=== PATIENT | female | born 2000 | race Caucasian/White ===

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

== ENCOUNTER 2022-10-26 10:32 | Emergency (ER) | payer MEDICAID, SELFPAY ==
[2022-10-26 10:48] VITALS: BP 122/76; PULSE 78; O2SAT 100
[2022-10-26 10:51] VITALS: BP 131/75; PULSE 77; RESP 20; TEMP 36.8; O2SAT 100; BMI 23.8
--- NOTE | 2022-10-26 10:55 | ED.CHESTPAIN ---
HPI - Chest Pain General Chief Complaint: Chest Pain Stated Complaint: VOMITING W/CHES/BACK PAIN PER EMS Time Seen by Provider: 10/26/22 11:58 Source: patient Mode of arrival: ambulatory Limitations: no limitations History of Present Illness HPI narrative: 22 yo female presents to the ER for evaluation of epigastric pain that radiates up into the chest that started this morning. She developed nausea and vomited once which improved her pain. She states she had wings, pizza, burgers last night for dinner. She denies history of similar pains. No RUQ pain, fever, chills, diarrhea. No urinary symptoms. No cough, SOB. MD complaint: chest pain and other (epigastric pain) Onset (ago): hour(s) Timing of current episode: other (much improved) Prior episodes: No Pain location: epigastric Severity: mild Quality: burning Relieving factors: other (vomiting) Exacerbating factors: nothing Associated symptoms: nausea and vomiting Treatment prior to arrival: none Risk Factors Coronary artery disease risk factors: none Thoracic aortic dissection risk factors: none Related Data Previous Rx's Medication Instructions Recorded levofloxacin 500 mg tablet 500 mg PO DAILY #5 tabs 07/07/20 oxycodone 5 mg tablet 5 mg PO Q8H PRN pain #5 tabs 07/07/20 tamsulosin 0.4 mg capsule (Flomax) 0.4 mg PO DAILY #14 caps 07/07/20 amoxicillin 875 mg-potassium 1 tab PO Q12H 7 days #14 tabs 04/06/21 clavulanate 125 mg tablet (Augmentin) ondansetron 4 mg disintegrating 4 mg PO Q8H PRN nausea and 09/04/21 tablet vomiting 5 days #20 tabs ondansetron 4 mg disintegrating 4 mg PO Q8H PRN nausea and 10/26/22 tablet vomiting #7 tabs pantoprazole 40 mg tablet,delayed 40 mg PO DAILY #14 tabs 10/26/22 release (Protonix) Allergies Allergy/AdvReac Type Severity Reaction Status Date / Time No Known Allergies Allergy Verified 04/06/21 18:39 [No Known Allergies*] Review of Systems Review of Systems: Yes all other systems are reviewed and are negative PMFSH Past Medical History Medical History No known health problems Social History Social History Advance Directives: No Advance Directives Information Provided: No Physical Exam Vital Signs: Vital Signs: Last Vital Signs Temp 98.2 F 10/26/22 10:51 Pulse 77 10/26/22 10:51 Resp 20 10/26/22 10:51 BP 131/75 10/26/22 10:51 Pulse Ox 100 10/26/22 10:51 O2 Del Method 10/26/22 10:51 BMI result Body Mass Index 23.8 Appearance: Alert. Oriented X3. No acute distress. HEENT: normal external inspection Neck: Normal inspection. CVS: Normal heart rate and rhythm. Respiratory: No respiratory distress. Breath sounds normal. Abdomen: Soft and nontender. +BS x4 Skin: Skin warm and dry. Normal skin color. Normal skin turgor. No rashes. Extremities: Normal inspection x4 Neuro: Oriented X 3. Grossly normal, nonfocal Course Course Course Narrative: 22 yo female presents to the ER with epigastric pain radiating up into her chest that started when she woke up this morning. Vomited x1. Slight pain persists. Admits to eating wings, cheese fries, and other greasy things. Appears well in triage. VSS. Will check basic labs and lipase, low suspicion for pancreatitis. Will hold off on imaging. Stable to go back to the waiting room. Reevaluation(s) Reevaluation #1: Labs showing mildly elevated LFTS, normal bilirubin and alk phos. Most like due to vomiting, doubt biliary etiology. Lipase is normal. She is feeling better. Sxs most likely GERD vs gastritis. We discussed importance of diet modifications. Will start PPI and PRN zofran. Encouraged GI f/u if no improvement with stated measures. Stable for d/c home. Medical Decision Making Medical Decision Making MDM Narrative: 22-year-old female presents to the ER for evaluation of epigastric burning pain that radiates into her chest. Pain started after eating greasy foods last night. She vomited once with improvement in the pain. There is no radiation of the pain. She has a nontender right upper quadrant. Doubt acute cholecystitis or pancreatitis. Labs are reassuring. She is feeling better without any intervention. Comfortable discharge home with dietary modifications, ppi, GI follow-up p.r.n.. Patient agrees with plan. Stable for DC Differential Diagnosis Differential Diagnoses: The differential diagnosis associated with the presentation includes GERD, gastritis, PUD, gastroenteritis, less likely acute cholecystitis, pancreatitis, ACS or PE Lab Data MDM Lab Attestation statement: I reviewed the patient's lab results. Mild transaminitis, no major metabolic derangement. 10/26/22 11:19 10/26/22 11:19 Labs: Lab Results 10/26/22 10/26/22 Range/Units 11:19 11:19 WBC 10.2 (4.8-10.8) X10*3/uL RBC 4.53 (4.20-5.50) X10*6/uL Hgb 12.6 (12.0-16.0) g/dl Hct 37.9 (37.0-47.0) % MCV 83.7 (80.0-98.0) fL MCH 27.8 (27.0-33.0) pg MCHC 33.2 (31.0-35.0) g/dl RDW 12.9 (11.0-16.0) % Plt Count 353 (160-400) X10*3/uL MPV 9.7 (9.4-12.3) fL Immature Gran % (Auto) 0.3 (0.0-0.4) % Neut % (Auto) 75.9 H (45-73) % Lymph % (Auto) 16.7 L (20-40) % [place] % (Auto) 5.6 (2-11) % Eos % (Auto) 1.0 (0-4) % Baso % (Auto) 0.5 (0-2) % Lymph # (Auto) 1.7 (1.2-4.9) X10*3/uL [place] # (Auto) 0.6 (0.1-1.2) X10*3/uL Eos # (Auto) 0.1 (0.0-0.4) X10*3/uL Baso # (Auto) 0.1 (0.0-0.2) X10*3/uL Abs Immat Gran (auto) 0.03 (0.00-0.03) X10*3/uL Absolute Neuts (auto) 7.7 (2.0-8.3) x10*3/uL Absolute Nucleated RBC 0.000 (0.0-0.012) X10*3/uL Nucleated RBC % (auto) 0.0 (0.0-0.2) /100WBC Sodium 144 (135-145) mmol/L Potassium 3.8 (3.3-5.1) mmol/L Chloride 111 H (96-108) mmol/L Carbon Dioxide 25 (22-29) mmol/L Anion Gap 12 (12-20) BUN 10 (9-16) mg/dL Creatinine 0.75 (0.5-1.4) mg/dL Estim Creat Clear Calc 116.3 Estimated GFR > 60 Random Glucose 111 (60-115) mg/dL Calcium 9.2 (8.4-10.2) mg/dL Magnesium 2.0 (1.6-2.6) mg/dL Total Bilirubin 0.7 (0.0-1.0) mg/dL Direct Bilirubin 0.2 (0.0-0.5) mg/dL AST 67 H (5-31) U/L ALT 39 H (0-31) U/L Alkaline Phosphatase 80 (39-117) U/L Total Protein 6.8 (6.5-8.0) g/dL Albumin 4.2 (3.5-5.0) g/dL Lipase 29 (8-78) U/L External Record Review External record reviewed: Outpatient record and Prior outpatient labs Prescription Management I considered prescription management with: Other (Antiemetic and PPI) Critical Care Time Critical Care Time Critical Care Time: No Discharge Plan Discharge Clinical Impression: Gastritis Patient Disposition: Home, Self-Care Instructions: Gastritis (ED), Diet for Stomach Ulcers and Gastritis (ED) Additional Instructions: Your lab workup today was unremarkable. Your pain is most likely due to gastritis which is and irritation and inflammation of your stomach lining. Start taking the prescribed medication as directed for this. Stick to a bland diet. Avoid foods high in acid, avoid alcohol and NSAID medications like Aleve, Motrin, Advil or ibuprofen. Follow up with your doctor Follow up with GI doctor if you symptoms persist despite dietary modifications and medication. If you develop new or worsening symptoms call 911 or come back to the ER for further evaluation. Prescriptions: New pantoprazole [Protonix] 40 mg tablet,delayed release (DR/EC) 40 mg PO DAILY Qty: 14 0RF ondansetron 4 mg tablet,disintegrating 4 mg PO Q8H PRN (Reason: nausea and vomiting) Qty: 7 0RF No Action tamsulosin [Flomax] 0.4 mg capsule 0.4 mg PO DAILY Qty: 14 0RF Rx Instructions: take 1 tablet daily for 14 days. oxycodone 5 mg tablet 5 mg PO Q8H PRN (Reason: pain) Qty: 5 0RF levofloxacin 500 mg tablet 500 mg PO DAILY Qty: 5 0RF amoxicillin-pot clavulanate [Augmentin] 875-125 mg tablet 1 tab PO Q12H 7 Days Qty: 14 0RF ondansetron 4 mg tablet,disintegrating 4 mg PO Q8H PRN (Reason: nausea and vomiting) 5 Days Qty: 20 0RF Referrals: [facility] – [place] [facility] [Provider Group]
[2022-10-26 11:25] LABS: MANUAL DIFF FLAG NO
[2022-10-26 11:30] LABS: Basophils Absolute Auto 0.1 X10*3/uL (0.0-0.2); Basophils Percent Auto 0.5 % (0-2); Eosinophils Absolute Auto 0.1 X10*3/uL (0.0-0.4); Hematocrit 37.9 % (37.0-47.0); Hemoglobin 12.6 g/dl (12.0-16.0); Imm Gran Abs Auto 0.03 X10*3/uL (0.00-0.03); Imm Gran Pct Auto 0.3 % (0.0-0.4); Lymphocytes Absolute Auto 1.7 X10*3/uL (1.2-4.9); Lymphocytes Percent Auto 16.7 % (20-40); Mean Corpuscular HGB Conc 33.2 g/dl (31.0-35.0); Mean Corpuscular Hemoglobin 27.8 pg (27.0-33.0); Mean Corpuscular Volume 83.7 fL (80.0-98.0); Mean Platelet Volume 9.7 fL (9.4-12.3); Monocytes Absolute Auto 0.6 X10*3/uL (0.1-1.2); Monocytes Percent Auto 5.6 % (2-11); Neutrophils Absolute Auto 7.7 x10*3/uL (2.0-8.3); Neutrophils Percent Auto 75.9 % (45-73); Platelet Count 353 X10*3/uL (160-400); Red Blood Count 4.53 X10*6/uL (4.20-5.50); Red Cell Distribution Width 12.9 % (11.0-16.0); White Blood Count 10.2 X10*3/uL (4.8-10.8)
[2022-10-26 11:47] LABS: Alanine Aminotransferase 39 U/L (0-31); Albumin Level 4.2 g/dL (3.5-5.0); Alkaline Phosphatase 80 U/L (39-117); Anion Gap 12 (12-20); Aspartate Amino Transferase 67 U/L (5-31); Bilirubin Total 0.7 mg/dL (0.0-1.0); Blood Urea Nitrogen 10 mg/dL (9-16); Calcium 9.2 mg/dL (8.4-10.2); Carbon Dioxide 25 mmol/L (22-29); Chloride 111 mmol/L (96-108); Creatinine Clr Calc Pharmacy 116.3; Estimated Glomerular Filt Rate > 60; Glucose Random 111 mg/dL (60-115); Lipase 29 U/L (8-78); Potassium 3.8 mmol/L (3.3-5.1); Sodium 144 mmol/L (135-145); Total Protein 6.8 g/dL (6.5-8.0)
[2022-10-26 11:50] LABS: Bilirubin Direct 0.2 mg/dL (0.0-0.5)
== END 2022-10-26 12:07 | disposition home or self-care (01) ==
LOC: HO.ED 12:03
PROVIDERS: Physician Assistant; Emergency Provider Emergency Medicine
DX: K29.70 Gastritis, unspecified, without bleeding (principal); R10.13 Epigastric pain
CPT/HCPCS: 36415; 80048; 80076; 83690; 83735; 85025; 99282; 99283

== ENCOUNTER 2024-06-19 14:23 | Emergency (ER) | payer MEDICAID, SELFPAY ==
--- NOTE | ~2024-06-19 | US_ITS ---
EXAMINATION: US ABDOMEN LIMITED CLINICAL INFORMATION: Right upper quadrant pain. Nausea. COMPARISON: Abdominal ultrasound July 07, 2020 TECHNIQUE: Real-time imaging of the right upper quadrant abdominal viscera. FINDINGS: PANCREAS: Limited visualization. LIVER: The liver is normal in size. The liver contour is normal. Parenchymal echogenicity is normal. No focal hepatic lesion. There is no intrahepatic biliary duct dilatation seen. GALLBLADDER: The gallbladder is distended with multiple shadowing gallstones. No gallbladder wall thickening or pericholecystic fluid. Negative sonographic Adler sign. COMMON BILE DUCT: Normal in caliber measuring 0.2 cm in diameter. RIGHT KIDNEY: No hydronephrosis. No renal calculi. Likely mid pole junctional parenchymal defect. The kidney measures 10.2 cm in maximum dimension. FREE FLUID: None. US/US abdomen limited IMPRESSION: Cholelithiasis without sonographic evidence of acute cholecystitis. Electronically signed by: Víctor Hauser MD 06/19/2024 04:59 PM EDT
[2024-06-19 14:28] VITALS: BP 113/65; PULSE 65; O2SAT 100
--- NOTE | 2024-06-19 14:47 | ED_ITS ---
HPI - Abdominal Pain General Chief Complaint: Abdominal Pain Stated Complaint: ABDOMINAL PAIN PER EMS Time Seen by Provider: 06/19/24 18:51 Source: patient, RN notes reviewed and old records reviewed Mode of arrival: ambulatory Limitations: no limitations History of Present Illness ED Provider: Ruben RAMOS narrative: 24-year-old female presents for evaluation of right upper abdominal pain. Patient reports that her pain started a few hours ago after eating [employer] She reports having had similar pain in August this past year but that eventually resolved with some medications She denies any history abdominal surgeries She reports that she has never had any imaging of her abdomen At the time of my evaluation she reports her pain has completely resolved, she has no further nausea or vomiting. She denies any fevers, chills pain Denies any difficulty urinating. Denies any vaginal bleeding or discharge Related Data Previous Rx's ?Medication ?Instructions ?Recorded levofloxacin 500 mg tablet 500 mg PO DAILY #5 tabs 07/07/20 oxycodone 5 mg tablet 5 mg PO Q8H PRN pain #5 tabs 07/07/20 tamsulosin 0.4 mg capsule (Flomax) 0.4 mg PO DAILY #14 caps 07/07/20 amoxicillin 875 mg-potassium 1 tab PO Q12H 7 days #14 tabs 04/06/21 clavulanate 125 mg tablet (Augmentin) ondansetron 4 mg disintegrating 4 mg PO Q8H PRN nausea and 09/04/21 tablet vomiting 5 days #20 tabs ondansetron 4 mg disintegrating 4 mg PO Q8H PRN nausea and 10/26/22 tablet vomiting #7 tabs pantoprazole 40 mg tablet,delayed 40 mg PO DAILY #14 tabs 10/26/22 release (Protonix) Allergies Allergy/AdvReac Type Severity Reaction Status Date / Time No Known Allergies Allergy Verified 06/19/24 14:50 [No Known Allergies*] Review of Systems Constitutional: Denies body ache(s), Denies chills and Denies fever(s) Eyes: Denies blurry vision Denies dysphagia, Denies vertigo and Denies dizziness Cardiovascular: Denies chest pain Respiratory: Denies cough Gastrointestinal: Reports abdominal pain, Denies dysphagia, Reports nausea and Reports vomiting Musculoskeletal: Denies back pain Skin/Breast: Denies rash Denies vertigo and Denies dizziness [facility] Past Medical History Medical History No known health problems Social History Social History Advance Directives: No Advance Directives Information Provided: No Do you have a plan to hurt others: No Plan Physical Exam ED Vital Signs: Vital Signs - 24 hr 06/19/24 14:48 06/19/24 19:07 06/19/24 19:19 Temperature 98.0 F 98.4 F 98.4 F Pulse Rate 58 67 67 Respiratory Rate 16 16 16 Blood Pressure 92/48 L 115/69 115/69 Pulse Oximetry 100 97 97 Oxygen Delivery Method Room Air Room Air Room Air BMI result Body Mass Index 16.9 Const General: healthy appearing, comfortable, no acute distress, alert and awake Nutritional Appearance: well nourished Orientation/consciousness: patient oriented x3 HENMT Head: Yes normocephalic and Yes atraumatic Eyes Eyelids: Yes eyelids normal Conjunctivae: conjunctivae normal Sclerae: sclerae normal Corneas: corneas normal Pupils: Equal, round and reactive pupils present EOM: EOMs intact bilaterally Neck Neck: Yes full ROM Resp Effort & Inspection: normal respiratory effort, able to speak in complete sentences and not labored Cardio Rate: regular rate Rhythm: regular rhythm GI Inspection: No distended Palpation (GI): Soft to palpation, not firm, nontender, no guarding and not rigid Skin General skin exam: elasticity normal Neuro General: patient oriented x3 Cranial nerves: Yes Equal, round and reactive pupils present and Yes Bilaterally intact EOM present Cognition (Neuro): normal cognition Extrem Other: Moving all extremities well without any obvious deformities Course Course Course Narrative: This is a Rapid Medical Exam performed in triage by Paola Villarreal PA-C. Full HPI, ROS and PE to be performed by primary ED provider. 24-year-old female with a past medical history of gastritis presenting to the ED c/o right sided abdominal pain & nausea since August 2022. Pain worse when she eats or drinks. denies fever, vomiting, diarrhea PE: Soft with RUQ tenderness, no rebound or guarding, no CVAT Plan: labs, UA Medical Decision Making Medical Decision Making MDM Narrative: 24-year-old female presents for evaluation of right upper abdominal pain. She is currently asymptomatic, her pain was after eating. Biliary disease high in the differential, she has no leukocytosis or significant anemia compared to her baseline. Chemistries are significant for a mild elevation of AST and ALT. Her total bilirubin is within normal limits at 1.0. Ultrasound of the right upper quadrant shows cholelithiasis without evidence of acute cholecystitis. The patient is currently asymptomatic. I discussed dietary change with the patient and she will be referred to outpatient surgery. Differential Diagnosis Differential Diagnoses: The differential diagnosis associated with the presentation includes Cholelithiasis Acute cholecystitis UTI Obstructive uropathy Acute appendicitis less likely given upper abdominal pain Lab Data MDM Lab Attestation statement: I reviewed the patient's lab results. 06/19/24 16:16 06/19/24 16:16 Labs: Lab Results 06/19/24 06/19/24 Range/Units 15:56 16:16 WBC 10.8 (4.8-10.8) X10*3/uL RBC 4.13 L (4.20-5.50) X10*6/uL Hgb 11.9 L (12.0-16.0) g/dl Hct 35.2 L (37.0-47.0) % MCV 85.2 (80.0-98.0) fL MCH 28.8 (27.0-33.0) pg MCHC 33.8 (31.0-35.0) g/dl RDW 13.2 (11.0-16.0) % Plt Count 274 (160-400) X10*3/uL MPV 9.5 (9.4-12.3) fL Immature Gran % (Auto) 0.5 H (0.0-0.4) % Neut % (Auto) 79.1 H (45-73) % Lymph % (Auto) 12.8 L (20-40) % Stokes % (Auto) 7.0 (2-11) % Eos % (Auto) 0.3 (0-4) % Baso % (Auto) 0.3 (0-2) % Lymph # (Auto) 1.4 (1.2-4.9) X10*3/uL Stokes # (Auto) 0.8 (0.1-1.2) X10*3/uL Eos # (Auto) 0.0 (0.0-0.4) X10*3/uL Baso # (Auto) 0.0 (0.0-0.2) X10*3/uL Abs Immat Gran (auto) 0.05 H (0.00-0.03) X10*3/uL Absolute Neuts (auto) 8.6 H (2.0-8.3) x10*3/uL Absolute Nucleated RBC 0.000 (0.0-0.012) X10*3/uL Nucleated RBC % (auto) 0.0 (0.0-0.2) /100WBC Sodium 141 (135-145) mmol/L Potassium 3.5 (3.3-5.1) mmol/L Chloride 108 (96-108) mmol/L Carbon Dioxide 26 (22-29) mmol/L Anion Gap 11 L (12-20) BUN 10 (9-16) mg/dL Creatinine 0.74 (0.5-1.4) mg/dL Estim Creat Clear Calc 92.0 Estimated GFR > 60 Random Glucose 104 (60-115) mg/dL Calcium 9.3 (8.4-10.2) mg/dL Magnesium 2.1 (1.6-2.6) mg/dL Total Bilirubin 1.0 (0.0-1.0) mg/dL Direct Bilirubin 0.5 (0.0-0.5) mg/dL AST 218 H (5-31) U/L ALT 109 H (0-31) U/L Alkaline Phosphatase 66 (39-117) U/L Total Protein 7.2 (6.5-8.0) g/dL Albumin 4.4 (3.5-5.0) g/dL Lipase 18 (8-78) U/L Urine Color Yellow Urine Appearance Turbid Urine pH 8.0 (5.0-9.0) Ur Specific [place] 1.025 (1.005-1.025) Urine Protein Negative (Neg-Trace) mg/dL Urine Glucose (UA) Negative (Negative) mg/dL Urine Ketones Negative (Negative) mg/dL Urine Blood Negative (Negative) Urine Nitrite Negative (Negative) Ur Leukocyte Esterase Negative (Negative) Urine Test NEGATIVE (NEGATIVE) Independent Interpretation I performed an independent interpretation of an: Ultrasound Interpretation: FINDINGS: PANCREAS: Limited visualization. LIVER: The liver is normal in size. The liver contour is normal. Parenchymal echogenicity is normal. No focal hepatic lesion. There is no intrahepatic biliary duct dilatation seen. GALLBLADDER: The gallbladder is distended with multiple shadowing gallstones. No gallbladder wall thickening or pericholecystic fluid. Negative sonographic Adler sign. COMMON BILE DUCT: Normal in caliber measuring 0.2 cm in diameter. RIGHT KIDNEY: No hydronephrosis. No renal calculi. Likely mid pole junctional parenchymal defect. The kidney measures 10.2 cm in maximum dimension. FREE FLUID: None. US/US abdomen limited IMPRESSION: Cholelithiasis without sonographic evidence of acute cholecystitis. Electronically signed by: Víctor Hauser MD 06/19/2024 04:59 PM EDT RP Discharge Plan Discharge Clinical Impression: Cholelithiasis Patient Disposition: Home, Self-Care Instructions: Gallstones (ED) Additional Instructions: Your ultrasound did show gallstones. I recommend avoiding past food, fried food, greasy foods as this will likely exacerbate your pain Follow-up with general surgery as an outpatient, you may call tomorrow to schedule an appointment. You may return for new or worsening symptoms, especially develop a fever, worsening abdominal pain that does not resolve or if you are nauseous and unable to tolerate oral intake Prescriptions: No Action tamsulosin [Flomax] 0.4 mg capsule 0.4 mg PO DAILY Qty: 14 0RF Rx Instructions: take 1 tablet daily for 14 days. oxycodone 5 mg tablet 5 mg PO Q8H PRN (Reason: pain) Qty: 5 0RF levofloxacin 500 mg tablet 500 mg PO DAILY Qty: 5 0RF amoxicillin-pot clavulanate [Augmentin] 875-125 mg tablet 1 tab PO Q12H 7 Days Qty: 14 0RF pantoprazole [Protonix] 40 mg tablet,delayed release (DR/EC) 40 mg PO DAILY Qty: 14 0RF ondansetron 4 mg tablet,disintegrating 4 mg PO Q8H PRN (Reason: nausea and vomiting) Qty: 7 0RF ondansetron 4 mg tablet,disintegrating 4 mg PO Q8H PRN (Reason: nausea and vomiting) 5 Days Qty: 20 0RF Referrals: Bunny Cobb MD [Physician] - (cholelithiasis) Interventions: ED Discharge Assessment Last Done: 06/19/24 19:19 Discharge Date/Time: 06/19/24 19:24 Print Language: Amharic
[2024-06-19 14:48] VITALS: BP 92/48; PULSE 58; RESP 16; TEMP 36.7; O2SAT 100; BMI 16.9
[2024-06-19 16:11] LABS: Appearance Urine Turbid; Color Urine Yellow; Glucose Urine UA Negative (Negative); Leukocyte Esterase Urine Negative (Negative); Nitrite Urine Negative (Negative); Specific Gravity - Urine 1.025 (1.005-1.025); Urine Blood Negative (Negative); Urine Ketones Negative (Negative); Urine Protein Negative (Neg-Trace)
[2024-06-19 16:14] LABS: UPreg QC Valid YES; Urine Pregnancy NEGATIVE (NEGATIVE)
[2024-06-19 16:19] LABS: MANUAL DIFF FLAG NO
[2024-06-19 16:20] LABS: Basophils Percent Auto 0.3 % (0-2); Eosinophils Percent Auto 0.3 % (0-4); Hematocrit 35.2 % (37.0-47.0); Hemoglobin 11.9 g/dl (12.0-16.0); Imm Gran Abs Auto 0.05 X10*3/uL (0.00-0.03); Imm Gran Pct Auto 0.5 % (0.0-0.4); Lymphocytes Absolute Auto 1.4 X10*3/uL (1.2-4.9); Lymphocytes Percent Auto 12.8 % (20-40); Mean Corpuscular HGB Conc 33.8 g/dl (31.0-35.0); Mean Corpuscular Hemoglobin 28.8 pg (27.0-33.0); Mean Corpuscular Volume 85.2 fL (80.0-98.0); Mean Platelet Volume 9.5 fL (9.4-12.3); Monocytes Absolute Auto 0.8 X10*3/uL (0.1-1.2); Neutrophils Absolute Auto 8.6 x10*3/uL (2.0-8.3); Neutrophils Percent Auto 79.1 % (45-73); Platelet Count 274 X10*3/uL (160-400); Red Blood Count 4.13 X10*6/uL (4.20-5.50); Red Cell Distribution Width 13.2 % (11.0-16.0); White Blood Count 10.8 X10*3/uL (4.8-10.8)
[2024-06-19 16:35] LABS: Alanine Aminotransferase 109 U/L (0-31); Albumin Level 4.4 g/dL (3.5-5.0); Alkaline Phosphatase 66 U/L (39-117); Anion Gap 11 (12-20); Aspartate Amino Transferase 218 U/L (5-31); Bilirubin Direct 0.5 mg/dL (0.0-0.5); Blood Urea Nitrogen 10 mg/dL (9-16); Calcium 9.3 mg/dL (8.4-10.2); Carbon Dioxide 26 mmol/L (22-29); Chloride 108 mmol/L (96-108); Estimated Glomerular Filt Rate > 60; Glucose Random 104 mg/dL (60-115); Lipase 18 U/L (8-78); Magnesium 2.1 mg/dL (1.6-2.6); Potassium 3.5 mmol/L (3.3-5.1); Sodium 141 mmol/L (135-145); Total Protein 7.2 g/dL (6.5-8.0)
--- NOTE | 2024-06-19 18:55 | PC.NURSE ---
pt from lobby, assume care of pt at this time
[2024-06-19 19:07] VITALS: BP 115/69; PULSE 67; RESP 16; TEMP 36.9; O2SAT 97
[2024-06-19 19:19] VITALS: BP 115/69; PULSE 67; RESP 16; TEMP 36.9; O2SAT 97
--- OUTSIDE RECORDS SUMMARY | 2024-06-19 19:20 | XMS_ITS | Continuity of Care Document ---
Author Organization [facility] Address Unknown Care Team Providers Care Tipple Worker Name Role Phone Ellie HOLLAND, Leydi Miller Primary Care Physician [place] [facility] [place] [facility] Allergies, Adverse Reactions, Alerts No Known Allergies Immunizations Given and Recorded Vaccine Date Status Refusal Reason SARS-CoV-2 (COVID-19) mRNA BNT-162b2 vac 05/05/21 Recorded SARS-CoV-2 (COVID-19) mRNA BNT-162b2 vac 01/28/21 Recorded Medications aspirin 81 mg oral delayed release tablet 162 mg, 2, tablet, By Mouth, Daily, # 90 tablet, Refills 2, Tot. Refills 2, Maintenance, 01/14/22 18:19:00 EDT, Route to Pharmacy Electronically, [facility], Partial fill upon patient request if the prescription is for a schedule I... Start Date: 01/14/22 Status: Ordered ferrous sulfate 325 mg oral tablet 1 tablet = 325 mg, By Mouth, Every other day, # 15 tablet, 6 Refills, Maintenance, 01/16/22 9:46:00EDT, [facility], Partial fill upon patient request if the prescription is for aschedule II opioid drug., 170, cm, 01/14/22 14:56:0... Start Date: 01/16/22 Stop Date: 08/14/22 Status: Ordered Multivitamins with Vitamin B Complex, Vitamin C, Minerals and L- Methylfolate oral capsule 1 capsule, By Mouth, Daily, # 30 capsule, 0 Refills, Maintenance, 12/15/21 10:50:00 EDT, Capsule, [facility], Partial fill upon patient request if the prescription is for a schedule II opioid drug., 1 capsule By Mouth Daily, 170, c... Start Date: 12/15/21 Status: Ordered Problem List Condition Effective Dates Status Health Status Inform ant Allergic rhinitis(Confirmed) Active Anxiety(Confirmed) Active Constipation(Confirmed) Active History of depression(Confirmed) Active Marijuana use(Confirmed) Active Social History Social History Type Response Smoking Status Never (less than 100 in lifetime) entered on: 12/15/21 Sex
--- OUTSIDE RECORDS SUMMARY | 2024-06-19 19:21 | XMS_ITS | Continuity of Care Document ---
Author Organization [facility] Address Unknown Care Team Providers Care Lecturer In Computer Science Name Role Phone Not on Staff, PCP Primary Care Physician Unavail able [place] [facility] [place] 11/28/21 - 12/28/21 [facility] Allergies, Adverse Reactions, Alerts No Known Allergies Immunizations Given and Recorded Vaccine Date Status Refusal Reason SARS-CoV-2 (COVID-19) mRNA BNT-162b2 vac 05/05/21 Recorded SARS-CoV-2 (COVID-19) mRNA BNT-162b2 vac 01/28/21 Recorded Medications Macrobid macrocrystals-monohydrate 100 mg oral capsule 1 capsule = 100 mg, By Mouth, 2 times a day, for 7 days, # 14 capsule, 0 Refills, Acute 12/29/21 22:47:00 EDT, 12/22/21 22:47:00 EDT, Capsule, [facility], Partial fill upon patient request if the prescription is for a schedule II o... Start Date: 12/22/21 Stop Date: 12/29/21 Status: Ordered Multivitamins with Vitamin B Complex, Vitamin C, Minerals and L- Methylfolate oral capsule 1 capsule, By Mouth, Daily, # 30 capsule, 0 Refills, Maintenance, 12/15/21 10:50:00 EDT, Capsule, [facility], Partial fill upon patient request if the prescription is for a schedule II opioid drug., 1 capsule By Mouth Daily, 170, c... Start Date: 12/15/21 Status: Ordered Unisom 25 mg oral tablet 1 tablet = 25 mg, By Mouth, Daily at bedtime, PRN for sleep, # 16 tablet, 0 Refills, Acute 01/14/2210:53:00 EDT, 12/15/21 10:52:00 EDT, Tablet, [facility], Partial fill upon patient request if the prescription is for a schedule II... Start Date: 12/15/21 Stop Date: 01/14/22 Status: Ordered Vitamin B6 25 mg oral tablet 1 tablet = 25 mg, By Mouth, 3 times a day, # 30 tablet, 0 Refills, Acute 01/14/22 10:53:00 EDT, 12/15/21 10:51:00 EDT, [facility], Partial fill upon patient request if the prescription is for a schedule II opioid drug., 170, cm, 04... Start Date: 12/15/21 Stop Date: 01/14/22 Status: Ordered Problem List Condition Effective Dates Status Health Status Inform ant Allergic rhinitis(Confirmed) Active Anxiety(Confirmed) Active Constipation(Confirmed) Active History of depression(Confirmed) Active Marijuana use(Confirmed) Active Social History Social History Type Response Smoking Status Never (less than 100 in lifetime) entered on: 12/15/21 Sex
--- OUTSIDE RECORDS SUMMARY | 2024-06-19 19:21 | XMS_ITS | Continuity of Care Document ---
Author Organization [facility] [employer] [facility] Address [address] [place] [address], [address] [place] [address]- Care Team Providers Care Woven Blind Loom Tender Name Role Phone Ellie HOLLAND, Leydi Miller Primary Care Physician [place] [facility] [place] [facility] [address] [facility], [address] [place] [address]- Attending Physician: Poly Gomez MD Referring Physician: Wes Kim CNM Allergies, Adverse Reactions, Alerts No Known Allergies Immunizations Given and Recorded Vaccine Date Status Refusal Reason SARS-CoV-2 (COVID-19) mRNA BNT-162b2 vac 05/05/21 Recorded SARS-CoV-2 (COVID-19) mRNA BNT-162b2 vac 01/28/21 Recorded Medications aspirin 81 mg oral delayed release tablet 162 mg, 2, tablet, By Mouth, Daily, # 90 tablet, Refills 2, Tot. Refills 2, Maintenance, 01/14/22 18:19:00 EDT, Route to Pharmacy Electronically, [facility], Partial fill upon patient request if the prescription is for a schedule I... Start Date: 01/14/22 Status: Ordered ferrous sulfate 325 mg oral tablet 1 tablet = 325 mg, By Mouth, Every other day, # 15 tablet, 6 Refills, Maintenance, 01/16/22 9:46:00EDT, [facility], Partial fill upon patient request if the prescription is for aschedule II opioid drug., 170, cm, 01/14/22 14:56:0... Start Date: 01/16/22 Stop Date: 08/14/22 Status: Ordered Multivitamins with Vitamin B Complex, Vitamin C, Minerals and L- Methylfolate oral capsule 1 capsule, By Mouth, Daily, # 30 capsule, 0 Refills, Maintenance, 12/15/21 10:50:00 EDT, Capsule, [facility], Partial fill upon patient request [...]
--- OUTSIDE RECORDS SUMMARY | 2024-06-19 19:21 | XMS_ITS | Continuity of Care Document ---
Author Organization [facility] Address Unknown Care Team Providers Care Psych Specialist Name Role Phone Ellie HOLLAND, Leydi Miller Primary Care Physician [place] [facility] [place] 03/12/22 - 04/11/22 [facility] Allergies, Adverse Reactions, Alerts No Known Allergies Immunizations Given and Recorded Vaccine Date Status Refusal Reason SARS-CoV-2 (COVID-19) mRNA BNT-162b2 vac 05/05/21 Recorded SARS-CoV-2 (COVID-19) mRNA BNT-162b2 vac 01/28/21 Recorded Medications aspirin 81 mg oral delayed release tablet 162 mg, 2, tablet, By Mouth, Daily, # 90 tablet, Refills 2, Tot. Refills 2, Maintenance, 01/14/22 18:19:00 EDT, Route to Pharmacy Electronically, [facility], Partial fill upon patient request if the prescription is for a schedule I... Start Date: 01/14/22 Status: Ordered docusate sodium 100 mg oral tablet 1 tablet = 100 mg, By Mouth, 2 times a day, PRN for constipation, # 60 tablet, 0 Refills, Maintenance, 03/12/22 19:31:00 EDT, Tablet, [facility], Partial fill upon patient requestif the prescription is for a schedule II opioid rob... Start Date: 03/12/22 Status: Ordered ferrous sulfate 325 mg oral tablet 1 tablet = 325 mg, By Mouth, Every other day, # 45 tablet, 3 Refills, Maintenance, 08/14/22 9:46:00EST, [facility], Partial fill upon patient request if the prescription is for aschedule II opioid drug., 170, cm, 04/08/22 15:00:0... Start Date: 08/14/22 Status: Ordered ferrous sulfate 325 mg oral tablet 1 tablet = 325 mg, By Mouth, Every other day, for 30 days, # 15 tablet, 6 Refills, Hard Stop 08/14/22 9:46:00 EST, 01/16/22 9:46:00 EDT, [facility], Partial fill upon patient request if the prescription is for a schedule II opioid... Start Date: 01/16/22 Stop Date: 08/14/22 Status: Ordered Multivitamins with Vitamin B Complex, Vitamin C, Minerals and L- Methylfolate oral capsule 1 capsule, By Mouth, Daily, # 30 capsule, 10 Refills, Maintenance, 03/12/22 11:52:00 EDT, Capsule, [facility], Partial fill upon patient request if the prescription is for a schedule II opioid drug., 1 capsule By Mouth Daily, 170,... Start Date: 03/12/22 Status: Ordered Problem List Condition Effective Dates Status Health Status Inform ant Allergic rhinitis(Confirmed) Active Anxiety(Confirmed) Active Constipation(Confirmed) Active History of depression(Confirmed) Active Marijuana use(Confirmed) Active Social History Social History Type Response Smoking Status Never (less than 100 in lifetime) entered on: 12/15/21 Sex
--- OUTSIDE RECORDS SUMMARY | 2024-06-19 19:21 | XMS_ITS | Continuity of Care Document ---
Author Organization [facility] [employer] [facility] Address [address], [address] [place] [address]- Care Team Providers Care Drilling Contractor Name Role Phone Ellie HOLLAND, Leydi Miller Primary Care Physician [place] [facility] [place]06[place]22 - 05/13/22 [facility] [employer] [facility] [address] [place] [address]- Attending Physician: Poly Gomez MD Referring Physician: Carol Ann Jaquez CNM Allergies, Adverse Reactions, Alerts No Known Allergies Immunizations Given and Recorded Vaccine Date Status Refusal Reason tetanus/diphtheria/pertussis, acel(Tdap) 05/05/22 Recorded SARS-CoV-2 (COVID-19) mRNA BNT-162b2 vac 05/05/21 Recorded SARS-CoV-2 (COVID-19) mRNA BNT-162b2 vac 01/28/21 Recorded Medications aspirin 81 mg oral delayed release tablet 162 mg, 2, tablet, By Mouth, Daily, # 90 tablet, Refills 2, Tot. Refills 2, Maintenance, 01/14/22 18:19:00 EDT, Route to Pharmacy Electronically, [facility], Partial fill upon patient request if the prescription is for a schedule I... Start Date: 01/14/22 Status: Ordered docusate sodium 100 mg oral tablet 1 tablet = 100 mg, By Mouth, 2 times a day, PRN for constipation, # 60 tablet, 0 Refills, Maintenance, 03/12/22 19:31:00 EDT, Tablet, [facility], Partial fill upon patient requestif the prescription is for a schedule II opioid rob... Start Date: 03/12/22 Status: Ordered ferrous sulfate 325 mg oral tablet 1 tablet = 325 mg, By Mouth, Every other day, # 45 tablet, 3 Refills, Maintenance, 08/14/22 9:46:00EST, [facility], Partial fill upon patient request if the prescription is for aschedule II opioid drug., 170, cm, 04/08/22 15:00:0... Start Date: 08/14/22 Status: Ordered ferrous sulfate 325 mg oral tablet 1 tablet = 325 mg, By Mouth, Every other day, for 30 days, # 15 tablet, 6 Refills, Hard Stop 08/14/22 9:46:00 EST, 01/16/22 9:46:00 EDT, [facility], Partial fill upon patient request if the prescription is for a schedule II opioid... Start Date: 01/16/22 Stop Date: 08/14/22 Status: Ordered Multivitamins with Vitamin B Complex, Vitamin C, Minerals and L- Methylfolate oral capsule 1 capsule, By Mouth, Daily, # 30 capsule, 10 Refills, Maintenance, 03/12/22 11:52:00 EDT, Capsule, [facility], Partial fill upon patient request if the prescription is for a schedule II opioid drug., 1 capsule By Mouth Daily, 170,... Start Date: 03/12/22 Status: Ordered Problem List Condition Effective Dates Status Health Status Inform ant Allergic rhinitis(Confirmed) Active Anemia in (Confirmed) Active Anxiety(Confirmed) Active BMI less than 19,adult(Confirmed) Active Constipation(Confirmed) Active growth retardation, (Confirmed) Active Abnormal ultrasound(Confirmed) Active History of depression(Confirmed) Active History of pyelonephritis(Confirmed) Active History of marijuana use(Confirmed) Active Marijuana use(Confirmed) Active High risk teen (Confirmed) Active Social History Social History Type Response Smoking Status Never (less than 100 in lifetime) entered on: 12/15/21 Sex Care Team Personnel Name: Ellie HOLLAND , Leydi Miller Address: [address] [place] [address]
--- OUTSIDE RECORDS SUMMARY | 2024-06-19 19:21 | XMS_ITS | Continuity of Care Document ---
Author Organization [facility] Address [address] [place] [id number]- Care Team Providers Care Drapery Rod Assembler Name Role Phone Ellie HOLLAND, Leydi Miller Primary Care Physician Encounter [facility] Date(s): 08/06/22 - 10/14/22 [facility] [address] [address]- Attending Physician: Loida Oneal CNM Admitting Physician: Loida Oneal CNM Referring Physician: Wse Kim CNM Allergies, Adverse Reactions, Alerts No Known Allergies Immunizations Given and Recorded Vaccine Date Status Refusal Reason influenza virus vaccine, inactivated 06/16/22 Angel rded tetanus/diphtheria/pertussis, acel(Tdap) 05/05/22 Recorded SARS-CoV-2 (COVID-19) mRNA BNT-162b2 vac 05/05/21 Recorded SARS-CoV-2 (COVID-19) mRNA BNT-162b2 vac 01/28/21 Recorded Medications docusate sodium 100 mg oral capsule 100 mg, 1, capsule, By Mouth, 2 times a day, PRN, with plenty of water, # 60 capsule, Refills 2, Tot. Refills 2, Maintenance, for constipation, 08/05/22 10:10:00 EST, Route to Pharmacy Electronically, [facility], 170, cm, 08/05/22... Start Date: 08/05/22 Stop Date: 11/03/22 Status: Ordered ferrous sulfate 325 mg oral tablet 1 tablet = 325 mg, By Mouth, Every other day, # 45 tablet, 3 Refills, Maintenance, 08/14/22 9:46:00EST, [facility], Partial fill upon patient request if the prescription is for aschedule II opioid drug., 170, cm, 04/08/22 15:00:0... Start Date: 08/14/22 Status: Ordered ibuprofen 600 mg oral tablet 600 mg, 1, tablet, By Mouth, 4 times a day, for 30 days, with food or milk not to exceed 3200 mg/day, # 120 tablet, Refills 3, Tot. Refills 3, Acute 12/03/22 10:11:00 EDT, 08/05/22 10:11:00 EST, Route to Pharmacy Electronically, [facility]... Start Date: 08/05/22 Stop Date: 12/03/22 Status: Ordered Multivitamins with Vitamin B Complex, Vitamin C, Minerals and L- Methylfolate oral capsule 1 capsule, By Mouth, Daily, # 30 capsule, 10 Refills, Maintenance, 03/12/22 11:52:00 EDT, Capsule, [facility], Partial fill upon patient request if the prescription is for a schedule II opioid drug., 1 capsule By Mouth Daily, 170,... Start Date: 03/12/22 Status: Ordered Problem List Condition Confirmation Course Effective Dates Status H ealth Status Informant Anemia in Confirmed Active Anxiety Confirmed Active BMI less than 19,adult Confirmed Active History of depression Confirmed Active History of pyelonephritis Confirmed Active History of marijuana use Confirmed Active Confirmed Active Social History Social History Type Response Smoking Status Never (less than 100 in lifetime) entered on: 12/15/21 Sex Patient Care team information Care Team Personnel Name: Ellie HOLLAND , Leydi Miller Position: Reference Physician Member Role: PCP Address: Address: [address] [place] [address]- Care Team Related Persons Name: KEZIA RICHTER Address: [address] [address] Name: MARIA FERNANDA SCOTT Address: Address: [address]
--- OUTSIDE RECORDS SUMMARY | 2024-06-19 19:21 | XMS_ITS | Continuity of Care Document ---
Author Organization [facility] Address Unknown Care Team Providers Care Bus Driver School Name Role Phone Ellie HOLLAND, Leydi Miller Primary Care Physician [place] [facility] 02/24/22 - 03/26/22 [facility] Allergies, Adverse Reactions, Alerts No Known Allergies Immunizations Given and Recorded Vaccine Date Status Refusal Reason SARS-CoV-2 (COVID-19) mRNA BNT-162b2 vac 05/05/21 Recorded SARS-CoV-2 (COVID-19) mRNA BNT-162b2 vac 01/28/21 Recorded Medications aspirin 81 mg oral delayed release tablet 162 mg, 2, tablet, By Mouth, Daily, # 90 tablet, Refills 2, Tot. Refills 2, Maintenance, 01/14/22 18:19:00 EDT, Route to Pharmacy Electronically, [facility], Partial fill upon patient request if the prescription is for a schedule I... Start Date: 01/14/22 Status: Ordered docusate sodium 100 mg oral tablet 1 tablet = 100 mg, By Mouth, 2 times a day, PRN for constipation, # 60 tablet, 0 Refills, Maintenance, 03/12/22 19:31:00 EDT, Tablet, [facility], Partial fill upon patient requestif the prescription is for a schedule II opioid rob... Start Date: 03/12/22 Status: Ordered ferrous sulfate 325 mg oral tablet 1 tablet = 325 mg, By Mouth, Every other day, # 15 tablet, 6 Refills, Maintenance, 01/16/22 9:46:00EDT, [facility], Partial fill upon patient request if the prescription is for aschedule II opioid drug., 170, cm, 01/14/22 14:56:0... Start Date: 01/16/22 Stop Date: 08/14/22 Status: Ordered Multivitamins with Vitamin B Complex, Vitamin C, Minerals and L- Methylfolate oral capsule 1 capsule, By Mouth, Daily, # 30 capsule, 10 Refills, Maintenance, 03/12/22 11:52:00 EDT, Capsule, [facility], Partial fill upon patient request [...]
--- OUTSIDE RECORDS SUMMARY | 2024-06-19 19:21 | XMS_ITS | Continuity of Care Document ---
Author Organization [facility] [employer] [facility] Address [address] [facility], [address] [place] [address]- Care Team Providers Care Senior Php Software Developer Name Role Phone Ellie HOLLAND, Leydi Miller Primary Care Physician Encounter [facility] R [id number] Date(s): 05/06/22 - 06/05/22 [facility] [address] [facility] [place], [place] [address] Attending Physician: Mike Smalls Admitting Physician: AdmtrMike Referring Physician: Admtr, Ar8 Allergies, Adverse Reactions, Alerts No Known Allergies [...] 01/14/22 18:19:00 EDT, Route to Pharmacy Electronically, [facility], Partial fill upon patient request if the prescription is for a schedule I... Start Date: 01/14/22 Status: Ordered docusate sodium 100 mg oral tablet 1 tablet = 100 mg, By Mouth, 2 times a day, PRN for constipation, # 60 tablet, 0 Refills, Maintenance, 03/12/22 19:31:00 EDT, Tablet, [facility], Partial fill upon patient requestif the prescription is for a schedule II opioid rob... Start Date: 03/12/22 Status: Ordered ferrous sulfate 325 mg oral tablet 1 tablet = 325 mg, By Mouth, Every other day, # 45 tablet, 3 Refills, Maintenance, 08/14/22 9:46:00EST, [facility], Partial fill upon patient request if the prescription is for aschedule II opioid drug., 170, cm, 04/08/22 15:00:0... Start Date: 08/14/22 Status: Ordered ferrous sulfate 325 mg oral tablet 1 tablet = 325 mg, By Mouth, Every other day, for 30 days, # 15 tablet, 6 Refills, Hard Stop 08/14/22 9:46:00 EST, 01/16/22 9:46:00 EDT, [facility], Partial fill upon patient request if the prescription is for a schedule II opioid... Start Date: 01/16/22 Stop Date: 08/14/22 Status: Ordered Multivitamins with Vitamin B Complex, Vitamin C, Minerals and L- Methylfolate oral capsule 1 capsule, By Mouth, Daily, # 30 capsule, 10 Refills, Maintenance, 03/12/22 11:52:00 EDT, Capsule, [facility], Partial fill upon patient request if the prescription is for a schedule II opioid drug., 1 capsule By Mouth Daily, 170,... Start Date: 03/12/22 Status: Ordered Problem List Condition Confirmation Course Effective Dates Status H ealth Status Informant Allergic rhinitis Confirmed Active Anemia in Confirmed Active Anxiety Confirmed Active BMI less than 19,adult Confirmed Active Constipation Confirmed Active growth retardation, Confirmed Active Abnormal ultrasound Confirmed Active History of depression Confirmed Active History of pyelonephritis Confirmed Active History of marijuana use Confirmed Active Marijuana use Confirmed Active High risk teen Confirmed Active Social History Social History Type Response Smoking Status Never (less than 100 in lifetime) entered on: 12/15/21 Sex Patient Care team information Personnel Name: Ellie HOLLAND , Leydi Miller Address: Address: [address] [place] [id number]
--- OUTSIDE RECORDS SUMMARY | 2024-06-19 19:21 | XMS_ITS | Continuity of Care Document ---
Author Organization [facility] Address Unknown Care Team Providers Care Cadd Operator Name Role Phone Ellie HOLLAND, Leydi Miller Primary Care Physician [place] [facility] [place]12[place] 03[place]14/22 [facility] Allergies, Adverse Reactions, Alerts No Known Allergies Immunizations Given and Recorded Vaccine Date Status Refusal Reason SARS-CoV-2 (COVID-19) mRNA BNT-162b2 vac 05/05/21 Recorded SARS-CoV-2 (COVID-19) mRNA BNT-162b2 vac 01/28/21 Recorded Medications aspirin 81 mg oral delayed release tablet 162 mg, 2, tablet, By Mouth, Daily, # 90 tablet, Refills 2, Tot. Refills 2, Maintenance, 01/14/22 18:19:00 EDT, Route to Pharmacy Electronically, [facility], Partial fill upon patient request if the prescription is for a schedule I... Start Date: 01/14/22 Status: Ordered docusate sodium 100 mg oral tablet 1 tablet = 100 mg, By Mouth, 2 times a day, PRN for constipation, # 60 tablet, 0 Refills, Maintenance, 03/12/22 19:31:00 EDT, Tablet, [facility], Partial fill upon patient requestif the prescription is for a schedule II opioid rob... Start Date: 03/12/22 Status: Ordered ferrous sulfate 325 mg oral tablet 1 tablet = 325 mg, By Mouth, Every other day, # 15 tablet, 6 Refills, Maintenance, 01/16/22 9:46:00EDT, [facility], Partial fill upon patient request if the prescription is for aschedule II opioid drug., 170, cm, 01/14/22 14:56:0... Start Date: 01/16/22 Stop Date: 08/14/22 Status: Ordered Multivitamins with Vitamin B Complex, Vitamin C, Minerals and L- Methylfolate oral capsule 1 capsule, By Mouth, Daily, # 30 capsule, 10 Refills, Maintenance, 03/12/22 11:52:00 EDT, Capsule, [facility], Partial fill upon patient request [...]
--- OUTSIDE RECORDS SUMMARY | 2024-06-19 19:21 | XMS_ITS | Continuity of Care Document ---
Author Organization [facility] [employer] [facility] Address [address] [place] [address], [address] [place] [address]- Care Team Providers Care Financial Services Officer Name Role Phone Ellie HOLLAND, Leydi Miller Primary Care Physician En[facility] [place] [facility] Date(s): 01/14/22 - 04/10/22 [facility] [address] [facility], [address] [place] [address]- Attending Physician: Poly Gomez MD Referring Physician: [...] 01/14/22 18:19:00 EDT, Route to Pharmacy Electronically, [facility], Partial fill upon patient request if the prescription is for a schedule I... Start Date: 01/14/22 Status: Ordered docusate sodium 100 mg oral tablet 1 tablet = 100 mg, By Mouth, 2 times a day, PRN for constipation, # 60 tablet, 0 Refills, Maintenance, 03/12/22 19:31:00 EDT, Tablet, [facility], Partial fill upon patient requestif the prescription is for a schedule II opioid rob... Start Date: 03/12/22 Status: Ordered ferrous sulfate 325 mg oral tablet 1 tablet = 325 mg, By Mouth, Every other day, # 45 tablet, 3 Refills, Maintenance, 08/14/22 9:46:00EST, [facility], Partial fill upon patient request if the prescription is for aschedule II opioid drug., 170, cm, 04/08/22 15:00:0... Start Date: 08/14/22 Status: Ordered ferrous sulfate 325 mg oral tablet 1 tablet = 325 mg, By Mouth, Every other day, for 30 days, # 15 tablet, 6 Refills, Hard Stop 08/14/22 9:46:00 EST, 01/16/22 9:46:00 EDT, [facility], Partial fill upon patient request if the prescription is for a schedule II opioid... Start Date: 01/16/22 Stop Date: 08/14/22 Status: Ordered Multivitamins with Vitamin B Complex, Vitamin C, Minerals and L- Methylfolate oral capsule 1 capsule, By Mouth, Daily, # 30 capsule, 10 Refills, Maintenance, 03/12/22 11:52:00 EDT, Capsule, [facility], Partial fill upon patient request [...]
--- OUTSIDE RECORDS SUMMARY | 2024-06-19 19:21 | XMS_ITS | Continuity of Care Document ---
Author Organization [facility] Address Unknown Care Team Providers Care Silk Blocker Name Role Phone Ellie HOLLAND, Leydi Miller Primary Care Physician Encounter [facility] [place] Date(s): 12/22/21 - 01/21/22 [facility] Allergies, Adverse Reactions, Alerts No Known Allergies Immunizations Given and Recorded Vaccine Date Status Refusal Reason SARS-CoV-2 (COVID-19) mRNA BNT-162b2 vac 05/05/21 Recorded SARS-CoV-2 (COVID-19) mRNA BNT-162b2 vac 01/28/21 Recorded Medications aspirin 81 mg oral delayed release tablet 162 mg, 2, tablet, By Mouth, Daily, # 90 tablet, Refills 2, Tot. Refills 2, Maintenance, 01/14/22 18:19:00 EDT, Route to Pharmacy Electronically, [facility], Partial fill upon patient request if the prescription is for a schedule I... Start Date: 01/14/22 Status: Ordered ferrous sulfate 325 mg oral tablet 1 tablet = 325 mg, By Mouth, Every other day, # 15 tablet, 6 Refills, Maintenance, 01/16/22 9:46:00EDT, [facility], Partial fill upon patient request if the prescription is for aschedule II opioid drug., 170, cm, 01/14/22 14:56:0... Start Date: 01/16/22 Stop Date: 08/14/22 Status: Ordered Multivitamins with Vitamin B Complex, Vitamin C, Minerals and L- Methylfolate oral capsule 1 capsule, By Mouth, Daily, # 30 capsule, 0 Refills, Maintenance, 12/15/21 10:50:00 EDT, Capsule, [facility], Partial fill upon patient [...]
--- OUTSIDE RECORDS SUMMARY | 2024-06-19 19:21 | XMS_ITS | Continuity of Care Document ---
Author Organization [facility] Address [address] [place] [address]- Care Team Providers Care Audiometric Technician Name Role Phone Ellie HOLLAND, Leydi Miller Primary Care Physician En[facility] Date(s): 06/08/22 - 07/08/22 [facility] [address] [address]- Attending Physician: Not on Staff, Attending MD Referring Physician: Leydi Argueta MD Allergies, Adverse Reactions, Alerts No Known Allergies [...] 01/14/22 18:19:00 EDT, Route to Pharmacy Electronically, [facility], Partial fill upon patient request if the prescription is for a schedule I... Start Date: 01/14/22 Status: Ordered docusate sodium 100 mg oral tablet 1 tablet = 100 mg, By Mouth, 2 times a day, PRN for constipation, # 60 tablet, 0 Refills, Maintenance, 03/12/22 19:31:00 EDT, Tablet, [facility], Partial fill upon patient requestif the prescription is for a schedule II opioid rob... Start Date: 03/12/22 Status: Ordered ferrous sulfate 325 mg oral tablet 1 tablet = 325 mg, By Mouth, Every other day, # 45 tablet, 3 Refills, Maintenance, 08/14/22 9:46:00EST, [facility], Partial fill upon patient request if the prescription is for aschedule II opioid drug., 170, cm, 04/08/22 15:00:0... Start Date: 08/14/22 Status: Ordered ferrous sulfate 325 mg oral tablet 1 tablet = 325 mg, By Mouth, Every other day, for 30 days, # 15 tablet, 6 Refills, Hard Stop 08/14/22 9:46:00 EST, 01/16/22 9:46:00 EDT, [facility], Partial fill upon patient request if the prescription is for a schedule II opioid... Start Date: 01/16/22 Stop Date: 08/14/22 Status: Ordered Multivitamins with Vitamin B Complex, Vitamin C, Minerals and L- Methylfolate oral capsule 1 capsule, By Mouth, Daily, # 30 capsule, 10 Refills, Maintenance, 03/12/22 11:52:00 EDT, Capsule, [facility], Partial fill upon patient request [...] Physician Member Role: PCP Address: Address: [address] [place] [address]- Care Team Related Persons Name: KEZIA RICHTER Address: [address] [address]
--- OUTSIDE RECORDS SUMMARY | 2024-06-19 19:21 | XMS_ITS | Continuity of Care Document ---
Author Organization [facility] [employer] [facility] Address [address] [place] [address], [place] [address]- Care Team Providers Care Auto Suspension And Steering Mechanic Name Role Phone Ellie HOLLAND, Leydi Miller Primary Care Physician [place] [facility] [place] 03/18/22 - 04/17/22 [employer] [facility] [address] [facility], [address] [place] [address]- Attending Physician: Mike Smalls Admitting Physician: AdmMike blake Referring Physician: AdmtrMike Allergies, Adverse Reactions, Alerts No Known Allergies Immunizations Given and Recorded Vaccine Date Status Refusal Reason SARS-CoV-2 (COVID-19) mRNA BNT-162b2 vac 05/05/21 Recorded SARS-CoV-2 (COVID-19) mRNA BNT-162b2 vac 01/28/21 Recorded Medications aspirin 81 mg oral delayed release tablet 162 mg, 2, tablet, By Mouth, Daily, # 90 tablet, Refills 2, Tot. Refills 2, Maintenance, 01/14/22 18:19:00 EDT, Route to Pharmacy Electronically, [facility], Partial fill upon patient request if the prescription is for a schedule I... Start Date: 01/14/22 Status: Ordered docusate sodium 100 mg oral tablet 1 tablet = 100 mg, By Mouth, 2 times a day, PRN for constipation, # 60 tablet, 0 Refills, Maintenance, 03/12/22 19:31:00 EDT, Tablet, [facility], Partial fill upon patient requestif the prescription is for a schedule II opioid rob... Start Date: 03/12/22 Status: Ordered ferrous sulfate 325 mg oral tablet 1 tablet = 325 mg, By Mouth, Every other day, # 45 tablet, 3 Refills, Maintenance, 08/14/22 9:46:00EST, [facility], Partial fill upon patient request if the prescription is for aschedule II opioid drug., 170, cm, 04/08/22 15:00:0... Start Date: 08/14/22 Status: Ordered ferrous sulfate 325 mg oral tablet 1 tablet = 325 mg, By Mouth, Every other day, for 30 days, # 15 tablet, 6 Refills, Hard Stop 08/14/22 9:46:00 EST, 01/16/22 9:46:00 EDT, [facility], Partial fill upon patient request if the prescription is for a schedule II opioid... Start Date: 01/16/22 Stop Date: 08/14/22 Status: Ordered Multivitamins with Vitamin B Complex, Vitamin C, Minerals and L- Methylfolate oral capsule 1 capsule, By Mouth, Daily, # 30 capsule, 10 Refills, Maintenance, 03/12/22 11:52:00 EDT, Capsule, [facility], Partial fill upon patient request [...] Name: Ellie HOLLAND , Leydi Miller Address: [address] [place] [address]
--- OUTSIDE RECORDS SUMMARY | 2024-06-19 19:21 | XMS_ITS | Continuity of Care Document ---
Author Organization [facility] Address Unknown Care Team Providers Care Employee Relations Director Name Role Phone Ellie HOLLAND, Leydi Miller Primary Care Physician [place] [facility](s): 02/25/22 - 03/27/22 [facility] Allergies, Adverse Reactions, Alerts No Known Allergies Immunizations Given and Recorded Vaccine Date Status Refusal Reason SARS-CoV-2 (COVID-19) mRNA BNT-162b2 vac 05/05/21 Recorded SARS-CoV-2 (COVID-19) mRNA BNT-162b2 vac 01/28/21 Recorded Medications aspirin 81 mg oral delayed release tablet 162 mg, 2, tablet, By Mouth, Daily, # 90 tablet, Refills 2, Tot. Refills 2, Maintenance, 01/14/22 18:19:00 EDT, Route to Pharmacy Electronically, [facility], Partial fill upon patient request if the prescription is for a schedule I... Start Date: 01/14/22 Status: Ordered docusate sodium 100 mg oral tablet 1 tablet = 100 mg, By Mouth, 2 times a day, PRN for constipation, # 60 tablet, 0 Refills, Maintenance, 03/12/22 19:31:00 EDT, Tablet, [facility], Partial fill upon patient requestif the prescription is for a schedule II opioid rob... Start Date: 03/12/22 Status: Ordered ferrous sulfate 325 mg oral tablet 1 tablet = 325 mg, By Mouth, Every other day, # 15 tablet, 6 Refills, Maintenance, 01/16/22 9:46:00EDT, [facility], Partial fill upon patient request if the prescription is for aschedule II opioid drug., 170, cm, 01/14/22 14:56:0... Start Date: 01/16/22 Stop Date: 08/14/22 Status: Ordered Multivitamins with Vitamin B Complex, Vitamin C, Minerals and L- Methylfolate oral capsule 1 capsule, By Mouth, Daily, # 30 capsule, 10 Refills, Maintenance, 03/12/22 11:52:00 EDT, Capsule, [facility], Partial fill upon patient request [...]
--- OUTSIDE RECORDS SUMMARY | 2024-06-19 19:21 | XMS_ITS | Continuity of Care Document ---
Author Organization [facility] Address [address] [place] [address]- Care Team Providers Care Adult Neuropsychologist Name Role Phone Ellie HOLLAND, Leydi Miller Primary Care Physician Encounter [facility] Date(s): 06/08/22 - 07/08/22 [facility] [address] [address]- Attending Physician: Mike Smalls Admitting Physician: AdmMike blake Referring Physician: Admtr ArSaurabh Allergies, Adverse Reactions, Alerts No Known Allergies [...] 01/14/22 18:19:00 EDT, Route to Pharmacy Electronically, [facility], Partial fill upon patient request if the prescription is for a schedule I... Start Date: 01/14/22 Status: Ordered docusate sodium 100 mg oral tablet 1 tablet = 100 mg, By Mouth, 2 times a day, PRN for constipation, # 60 tablet, 0 Refills, Maintenance, 03/12/22 19:31:00 EDT, Tablet, [facility], Partial fill upon patient requestif the prescription is for a schedule II opioid rob... Start Date: 03/12/22 Status: Ordered ferrous sulfate 325 mg oral tablet 1 tablet = 325 mg, By Mouth, Every other day, # 45 tablet, 3 Refills, Maintenance, 08/14/22 9:46:00EST, [facility], Partial fill upon patient request if the prescription is for aschedule II opioid drug., 170, cm, 04/08/22 15:00:0... Start Date: 08/14/22 Status: Ordered ferrous sulfate 325 mg oral tablet 1 tablet = 325 mg, By Mouth, Every other day, for 30 days, # 15 tablet, 6 Refills, Hard Stop 08/14/22 9:46:00 EST, 01/16/22 9:46:00 EDT, [facility], Partial fill upon patient request if the prescription is for a schedule II opioid... Start Date: 01/16/22 Stop Date: 08/14/22 Status: Ordered Multivitamins with Vitamin B Complex, Vitamin C, Minerals and L- Methylfolate oral capsule 1 capsule, By Mouth, Daily, # 30 capsule, 10 Refills, Maintenance, 03/12/22 11:52:00 EDT, Capsule, [facility], Partial fill upon patient request [...] Physician Member Role: PCP Address: Address: [address] [place] [address]- Care Team Related Persons Name: KEZIA RICHTER Address: home [address] [place] [address]
--- OUTSIDE RECORDS SUMMARY | 2024-06-19 19:21 | XMS_ITS | Continuity of Care Document ---
Author Organization [facility] [employer] [facility] Address [address], [address] [place] [address]- Care Team Providers Care Net Developer With [employer] Name Role Phone Ellie HOLLAND, Leydi Miller Primary Care Physician [place] [facility] [place] [facility] [employer] [employer] [facility] [address] [place] [address]- Attending Physician: Poly Gomez MD Referring Physician: [...] 01/14/22 18:19:00 EDT, Route to Pharmacy Electronically, [facility], Partial fill upon patient request if the prescription is for a schedule I... Start Date: 01/14/22 Status: Ordered docusate sodium 100 mg oral tablet 1 tablet = 100 mg, By Mouth, 2 times a day, PRN for constipation, # 60 tablet, 0 Refills, Maintenance, 03/12/22 19:31:00 EDT, Tablet, [facility], Partial fill upon patient requestif the prescription is for a schedule II opioid rob... Start Date: 03/12/22 Status: Ordered ferrous sulfate 325 mg oral tablet 1 tablet = 325 mg, By Mouth, Every other day, # 15 tablet, 6 Refills, Maintenance, 01/16/22 9:46:00EDT, [facility], Partial fill upon patient request if the prescription is for aschedule II opioid drug., 170, cm, 01/14/22 14:56:0... Start Date: 01/16/22 Stop Date: 08/14/22 Status: Ordered Multivitamins with Vitamin B Complex, Vitamin C, Minerals and L- Methylfolate oral capsule 1 capsule, By Mouth, Daily, # 30 capsule, 10 Refills, Maintenance, 03/12/22 11:52:00 EDT, Capsule, [facility], Partial fill upon patient request [...]
--- OUTSIDE RECORDS SUMMARY | 2024-06-19 19:21 | XMS_ITS | Continuity of Care Document ---
Author Organization [facility] ter Address [address] [place] [id number]- Care Team Providers Care Enforcement Manager Name Role Phone Ellie HOLLAND, Leydi Miller Primary Care Physician Encounter [facility] [place] Date(s): 07/28/22 - 09/03/[address] [address] Attending Physician: Buddy Dickson MD Referring Physician: Lucero Zarate CNM Allergies, Adverse Reactions, Alerts No Known Allergies Immunizations Given and Recorded Vaccine Date Status Refusal Reason influenza virus vaccine, inactivated 06/16/22 Angel rded tetanus/diphtheria/pertussis, acel(Tdap) 05/05/22 Recorded SARS-CoV-2 (COVID-19) mRNA BNT-162b2 vac 05/05/21 Recorded SARS-CoV-2 (COVID-19) mRNA BNT-162b2 vac 01/28/21 Recorded Medications acetaminophen 325 mg oral capsule 2 capsule = 650 mg, By Mouth, Every 4 hours, PRN as needed for pain, for 14 days, not to exceed 4000 mg/day, # 150 capsule, 3 Refills, Acute 09/30/22 10:13:00 EST, 08/05/22 10:13:00 EST, Capsule, [facility], 170, cm, 08/05/22 9:59:... Start Date: 08/05/22 Stop Date: 09/30/22 Status: Ordered docusate sodium 100 mg oral capsule 100 mg, 1, capsule, By Mouth, 2 times a day, PRN, with plenty of water, # 60 capsule, Refills 2, Tot. Refills 2, Maintenance, for constipation, 08/05/22 10:10:00 EST, Route to Pharmacy Electronically, [facility], 170, cm, 08/05/22... Start Date: 08/05/22 Stop Date: 11/03/22 Status: Ordered ferrous sulfate 325 mg oral tablet 1 tablet = 325 mg, By Mouth, Every other day, # 45 tablet, 3 Refills, Maintenance, 08/14/22 9:46:00EST, [facility], Partial fill upon patient [...] 08/05/22 10:11:00 EST, Route to Pharmacy Electronically, [facility]... Start Date: 08/05/22 Stop Date: 12/03/22 Status: Ordered Multivitamins with Vitamin B Complex, Vitamin C, Minerals and L- Methylfolate oral capsule 1 capsule, By Mouth, Daily, # 30 capsule, 10 Refills, Maintenance, 03/12/22 11:52:00 EDT, Capsule, [facility], Partial fill upon patient [...] Physician Member Role: PCP Address: Address: [address] [place] [address]- Care Team Related Persons Name: KEZIA RICHTER Address: [address] [place] [address] Name: MARIA FERNANDA SCOTT Address: [address] Address: [address] [place] [address] [place]
--- OUTSIDE RECORDS SUMMARY | 2024-06-19 19:21 | XMS_ITS | Continuity of Care Document ---
Author Organization [facility] ter Address [address] [place] [id number]- Care Team Providers Care Dye Colorist Dyer Name Role Phone Ellie HOLLAND, Leydi Miller Primary Care Physician Encounter [facility] [place] Date(s): 08/02/22 - 08/02/[address] [address] Discharge Disposition: A-D/C Home Attending Physician: Hedy Gary CNM Admitting Physician: Hedy Gary CNM Referring Physician: Hedy Gary CNM Allergies, Adverse Reactions, Alerts No Known Allergies Immunizations Given and Recorded Vaccine Date Status Refusal Reason influenza virus vaccine, inactivated 06/16/22 Angel rded tetanus/diphtheria/pertussis, acel(Tdap) 05/05/22 Recorded SARS-CoV-2 (COVID-19) mRNA BNT-162b2 vac 05/05/21 Recorded SARS-CoV-2 (COVID-19) mRNA BNT-162b2 vac 01/28/21 Recorded Medications docusate sodium 100 mg oral tablet 1 tablet = 100 mg, By Mouth, 2 times a day, PRN for constipation, # 60 tablet, 0 Refills, Maintenance, 03/12/22 19:31:00 EDT, Tablet, [facility], Partial fill upon patient requestif the prescription is for a schedule II opioid rob... Start Date: 03/12/22 Status: Ordered ferrous sulfate 325 mg oral tablet 1 tablet = 325 mg, By Mouth, Every other day, # 45 tablet, 3 Refills, Maintenance, 08/14/22 9:46:00EST, [facility], Partial fill upon patient request if the prescription is for aschedule II opioid drug., 170, cm, 04/08/22 15:00:0... Start Date: 08/14/22 Status: Ordered ferrous sulfate 325 mg oral tablet 1 tablet = 325 mg, By Mouth, Every other day, for 30 days, # 15 tablet, 6 Refills, Hard Stop 08/14/22 9:46:00 EST, 01/16/22 9:46:00 EDT, [facility], Partial fill upon patient request if the prescription is for a schedule II opioid... Start Date: 01/16/22 Stop Date: 08/14/22 Status: Ordered Multivitamins with Vitamin B Complex, Vitamin C, Minerals and L- Methylfolate oral capsule 1 capsule, By Mouth, Daily, # 30 capsule, 10 Refills, Maintenance, 03/12/22 11:52:00 EDT, Capsule, [facility], Partial fill upon patient request if the prescription is for a schedule II opioid drug., 1 capsule By Mouth Daily, 170,... Start Date: 03/12/22 Status: Ordered Problem List Condition Confirmation Course Effective Dates Status H ealth Status Informant Anemia in Confirmed Active Anxiety Confirmed Active BMI less than 19,adult Confirmed Active Abnormal ultrasound Confirmed Active History of depression Confirmed Active History of pyelonephritis Confirmed Active History of marijuana use Confirmed Active Marijuana use Confirmed Active Confirmed Active Vital Signs Most recent to oldest [Reference Range]: 1 2 Height 170 cm (08/02/22 2:26 AM) Weight 80.3 kg (08/02/22 2:27 AM) Oxygen Saturation [94-100 %] 100 % (08/02/22 2: AM) Pulse Rate [55-90 bpm] 101 bpm *H* (08/02/22 2: AM) Blood Pressure [90-138/55-84 mm Hg] 117/ 74mm Hg (08/02/22 2:26 AM) Respiratory Rate [16-30 br/min] 16 br/mi n (08/02/22 2:26 AM) Temperature [96.8-100.4 DegF] 98.6 DegF (08/02/22 2:27 AM) Blood pressure sites Arm, right (08/02/22 2:26 AM) Temperature Route Oral (08/02/22 2:27 AM) Oral (08/02/22 2:26 AM) Dry Weight 80.3 kg (08/02/22 2:27 AM) Weight Obtained Via Standing scale (08/02/22 2:27 AM) Dry Weight Obtained Via Standing scale (08/02/22 2:27 AM) Social History Social History Type Response Smoking Status Never (less than 100 in lifetime) entered on: 12/15/21 Sex History and physical note * Abdirahman ALFONSO, Hedy Boyd: PERFORM Event Display: History and Physical Hospital Authored Date: Patient: ??JOSE MCCOY ? Age:??22 Years?Sex:??Female?:??2000?? OB Reason for Admission OB Reason for Admission?? No qualifying data available. LMP/EGA/SONI Gestational Age (EGA) and SONI? * Note: EGA calculated as of 08/02/2022 ?? SONI:??07/26/2022?EGA*:??41 weeks ? History?(0,0,0,0)?Method:??Last Menstrual Period??(10/19/2021) History of Present Illness 22 year old at 41 weeks presents to wetu with c/o decreased movement. Pt reports baby not moving as much as she is use to. Did notice increase in movement when she arrived in wetu. She denies any regular contractions, leaking of fluid, had some mucusy blood tinged discharge, no active vaginal bleeding. Review of Systems ?Constitutional - neg ?Endocrine - neg ?Breast - neg ?Resp - Neg,??no SOB ?Cardio - Neg ?Urinary - no dysuria, frequency, odor, hematuria ?Guest House Manager -??+mucousy blood tinged??vaginal discharge, no itching, no odor, no lesions ?GI -??no nausea,??no vomiting,??no diarrhea ?Neuro - neg,??no headaches,??no visual changes,??no dizziness ?Psych - neg, no depression of anxiety ?? Physical Exam Vitals & Measurements T:??98.6?F ?? ND:??101?? RR:??16?? BP:??117/74?? SpO2:??100%?? HT:??170??cm?? WT:??80.3??kg?? Constitutional?? Appearance: Normal affect.? Skin?? Skin: Normal exam. ? Neurological/Psychiatric?? Orientation: Time, Place, Person. ? Affect: Normal. ? No headaches, no visual disturbances Abdomen/GI?? gravid.? EFW:??3700? Not Tender. ? No Masses. ? Gynecologic?? External Genitalia: no lesions Urethral meatus: Normal exam. ? Urethra: normal to palpation.? Vagina: Normal exam, normal support, no lesions, no discharge.? SVE 2/70%?? OB Assessment Cervical Cervical Dilatation2 cm Cervical Ewtfspdqzo17% Assessment/Plan Decreased movements in third trimester (O36.8130):??- RNST - Reviewed labor and warning s/sx with pt and [facility] 08/04 - ok to [place] home ?? OB History History?(0,0,0,0)?No previous pregnancies history have been recorded Labs Labs Labs & Tests ABO: O (01/14/22) Antibody Screen: Negative (12/22/21) Blood Type: O Positive (12/22/21) Chlamydia Trachomatis Amplified Probe: NEGATIVE (06/30/22) Down Syndrome Age Risk FTS: Age Risk: (01/14/22) Down Syndrome Scrn Risk FTS: Screening Risk: (01/14/22) Glucose 50 Gm, +60 Minutes: 97 mg/dL (05/06/22) Hct:??30.6 %??Low (05/06/22) Hemoglobinopathy Interpretation: Normal hemoglobins, with anemia. (01/14/22) Hepatitis B Surface Antigen: NEGATIVE (01/14/22) Hepatitis C Ab: NEGATIVE (01/14/22) Hgb:??10.3 Gm/dL??Low (05/06/22) HIV 4th Generation Ab-Ag Result: NEGATIVE (01/14/22) RH Test Only: Positive (01/14/22) RPR Titer Result: NOT INDICATED (05/06/22) Rubella IgG Ab: POSITIVE (01/14/22) Syphilis Screen by SABINO: NEGATIVE (05/06/22) Trisomy 18 Scrn Risk FTS: Screening Risk: (01/14/22) Urine Culture: Urine Culture (02/11/22) Varicella IgG Ab: NEGATIVE (01/14/22) Problem List Active Active Problem List Abnormal ultrasound: (Medical) Anemia in : (Medical) Anxiety: (Medical) BMI less than 19,adult: (Medical) History of depression: (Medical) History of marijuana use: (Medical) History of pyelonephritis: (Medical) Marijuana use: (Medical) : (Medical) : (Obstetric) (10/20/21) Procedure/Surgical History No qualifying data available. Home Medications Docusate: 100 mg = 1 tablet, By Mouth, 2 times a day, PRN (for constipation) Ferrous Sulfate: 325 mg = 1 tablet, By Mouth, Every other day Ferrous Sulfate: 325 mg = 1 tablet, By Mouth, Every other day Multivitamin, : 1 capsule, By Mouth, Daily Allergies NKA Social History Alcohol Use: Past., 12/15/2021 Electronic Cigarette/Vaping Electronic Cigarette Use: Never., 12/15/2021 Employment/School Status: Unemployed., 12/15/2021 Exercise Self assessment: Excellent condition., 12/22/2021 Home/Environment Living situation: Home/Independent. Lives with: Mother, Siblings., 12/15/2021 Nutrition/Health Diet: Regular., 12/22/2021 Sexual Sexually involved in last 6 months: Yes. Gender identity: Identifies as female., 12/22/2021 Substance Abuse Use: Past. Type: Marijuana. Substance abuse in household: Yes. Other: Boyfriend -MJ., 12/15/2021 Tobacco Use: Never (less than 100 in lifetime)., 12/15/2021 Family History Mat. Grandmother: Breast cancer Other: Autism; Diabetes mellitus; Hypertension; Thyroid disorder Sister: Seizure disorder Plan OB Plan Circumcision Plan: Before discharge (08/02/22) Contraceptives: Depoprovera (08/02/22) Infant Feeding Plan: Breast milk (08/02/22) Labor Coping Mechanisms: No pharmacological interventions, Other: Reviewed options 06/16 (08/02/22) Patient Requests: Jordin Quick - Yes circ (08/02/22) Note * Cierra RN, Shannon T: PERFORM Event Display: Patient Education/Instruction Authored Date: [id number] Inpatient Adult Discharge Instructions [place] [id number] Name: JOSE MCCOY : 2000 Visit: 08/02/2022 02:08:00 Current Date: 08/02/2022 03:13 Account: [id number] Inpatient Adult Discharge Instructions We would like to thank you for allowing us to assist you with your healthcare needs. The following includes patient education materials and information regarding your injury/illness. Our entire staffstrives to provide an excellent experience for our patients and their families. PLEASE ENSURE YOU FOLLOW-UP PER THE INSTRUCTIONS BELOW! ?? YOUR OPINION IS IMPORTANT TO US! Please complete the survey you may receive by mail or email. Your feedback will be used to make improvements to the healthcare experiences of our patients and their families. Surveys are administered by [employer] ?? If further treatment with your primary care physician or another doctor is recommended, it is important for you to keep the appointment. Call your primary care physician or return to the Emergency Department immediately if your condition worsens, fails to improve, or new symptoms develop. If you need to find a doctor, you can call [facility] [employer] for a referral at [phone] or toll free at [phone] or log in to [email or web address].. ?? You can view and manage your care through the patient portal or by using a health care serenity of your choosing. [employer] is a website that allows you to securely view your medical information including your hospital discharge summary, office visit summaries, medications and follow-up visits. You can also request appointments, renew medications, and request access to your medical information using a health care serenity of your choosing, or just ask a question. You can enroll at [email or web address] or register during your next office visit. You have been discharged from [facility], Patient Care Unit: [id number]. If you have any questions regarding these instructions after you leave, please call us and we will be happy to assist you. [facility] Your Care Team Attending Physician Hedy Gary CNM Your Diagnosis Decreased movements in third trimester Tests Performed Below is a partial list of the tests performed during your hospitalization. You may have had other tests and procedures not included in this list. Please discuss all test results with your provider. Primary Care Provider Ellie HOLLAND , Leydi Miller Advance Directive Health Care Proxy on File No Patient has a Designated Caregiver: No Discharge Vitals Temperature: 98.6 DegF Height: 170 cm Pulse Rate:??101 bpm??High Weight: 80.3 kg Respiratory Rate: 16 br/min ?? Systolic Blood Pressure: 117 mm Hg ?? Diastolic Blood Pressure: 74 mm Hg ?? Oxygen Saturation: 100 % ?? Studies Pending All tests and labs ordered during this hospital stay have been completed unless listed below. Please discuss all pending results with your provider listed above in these instructions. ?? No incomplete studies found What to do next Instructions From Your Doctor Discharge Orders You Need to Schedule the Following Appointments Follow Up with??[facility]- When?? Why: as scheduled Where: Discharge Medications DARIUS JOSE :2000 Visit Date:08/02/2022 Medications: Please continue your medications until treatment is completed or stopped by your provider. Medications not listed below should be discontinued. Discuss any questions related to medications with your provider. What How Much When Instructions Next Dose Unchanged Docusate (docusate sodium 100 mg oral tablet) 1 tab(s) Oral Twice a day as needed for for constipation Unchanged Ferrous Sulfate (ferrous sulfate 325 mg oral tablet) 1 tab(s) Oral Every other day Unchanged Ferrous Sulfate (ferrous sulfate 325 mg oral tablet) 1 tab(s) Oral Every other day Duration: 30 Days Unchanged Multivitamin, ( Multivitamins with Vitamin B Complex, Vitamin C, Minerals and L-Methylfolate oral capsule) 1 capsule Oral Daily Test Results Below is a partial list of the most recent Laboratory test results done prior to this discharge. You may have had other tests and procedures not included in this list. Please discuss all test resultswith your provider. Allergies (NKA means No Known Allergies) NKA Problems Active Problems??(10) Abnormal ultrasound?? Anemia in ?? Anxiety?? BMI less than 19,adult?? History of depression?? History of marijuana use?? History of pyelonephritis?? Marijuana use? Education Materials Below is the list of Educational Leaflet Providered with your Discharge Instructions. Labor and Childbirth: Your Body Prepares?? How to Know You Are in Labor?? False Labor?? Recognizing Labor?? Labor Induction?? Kick Counts?? Valuables and Belongings I fully understand and agree that [facility] accepts no responsibility for all my personal property including clothing, toilet articles, radios, jewelry, dentures, hearing aids, rings, money, or any other property that is in my possession or is brought to me after admission. I understand certain valuables may be placed in a hospital safe for a short period of time. I understand that the hospital is not liable for loss or damage due to accident, fire, or other natural occurrence while said property is in the safe. I accept full responsibility for any personal property that I keep with me, and will not hold the hospital responsible in case of loss or disappearance. I acknowledge that i have been encouraged to send valuables and belongings home. ? Other Discharge Information ? Pulmonary Rehab Status?? Pulmonary Rehab Discharge Status?? Respiratory Rate: 16 br/min ? Common Emergency Awareness Tips IS IT A STROKE? Act FAST and Check for these signs: FACE Does the face look uneven? ARM Does one arm drift down? SPEECH Does their speech sound strange? TIME Call at any sign of stroke ?? Heart Attack Signs Chest discomfort: Most heart attacks involve discomfort in the center of the chest and lasts more than a few minutes, or goes away and comes back. It can feel like uncomfortable pressure, squeezing, fullness or pain. Discomfort in upper body: Symptoms can include pain or discomfort in one or both arms, back, neck, jaw or stomach. Shortness of breath: With or without discomfort. Other signs: Breaking out in a cold sweat, nausea, or lightheaded. Remember, MINUTES DO MATTER. If you experience any of these heart attack warning signs, call to get immediate medical attention! ?? Smoking can increase your chances of developing chronic health problems and can cause harmful effects to other family members in your house. If you smoke, you are strongly encouraged to quit. Please call [facility] [employer] at [phone] or [phone] ([phone]) or log in to [email or web address] for referrals to smoking cessation programs. ?? The National Suicide Prevention Hotline is available 15/03 if you or someone you know needs to find a reason to keep living. By calling 4-938-608-Stion (9677) you'll be connected to a skilled, trained counselor at a crisis center in your area. INPATIENT DISCHARGE INSTRUCTIONS SIGNATURE JOSE BELL Location:[facility] Registration Date and Time:08/02/2022 02:08 [facility] Primary Care Physician: Ellie HOLLAND , Leydi Miller, I JOSE MCCOY, have received the above patient education materials/instructions and have verbalized understanding. If ambulance or transport services are being used I further acknowledge being given a choice of service. ?? If you need to contact me, please call me at this number: . Patient/Finance Effectiveness Manager Name: Patient/Finance Effectiveness Manager Signature: Relationship to Patient: Witness Name/Signature: Date: * [place] Shannon LEO: PERFORM Event Display: Patient Education Leaflets Authored Date: [id number] Labor and Childbirth: Your Body Prepares ?? [id number] Labor and Childbirth: Your Body Prepares Labor is the series of uterine contractions that open (dilate) and thin (efface) your cervix for . Your due date is a guide to when labor will begin. But babies often come days or weeks before or after due dates. Even so, labor need not take you by surprise. In the last weeks of , youor your healthcare provider may notice changes that mean labor is near. ??? The placenta and umbilical cord send nourishment to the baby. ??? The amniotic sac (bag of water) holds the fluid that surrounds your baby in the uterus. ??? The uterus (womb) holds the baby as it grows. ??? The cervix is the narrow opening of the uterus. ??? The vagina is the canal. ??? The mucous plug helps keep bacteria out of the uterus. ??? The perineum is the area between the vaginal opening and the anus. ??? The pubic symphysis joint lies between the pelvic bones and allows thebaby to pass through. Changes in your body Physical changes often signal that your baby will soon be born: ??? Discharge from your vagina may increase and become thicker. You may notice a pink or brownish discharge called the bloody show. ???The mucous plug may break down over a few weeks or all at once. Losing the plug doesn???t mean thatlabor will start right away. ??? You may feel [place] contractions (false labor). These irregular contractions start to soften and thin the cervix. Many women mistake these contractions for true labor. They may be more??noticeable??towards the end of the day. ??? Feeling like the baby has dropped lower. In preparation for , the baby's head has settled deep into your pelvis. ?? Last Reviewed Date: 2021 ?? The [employer]. All rights reserved. This information is not intended as a substitute for professional medical care. Always follow your healthcare professional's instructions. ?? * Shannon Norton RN: PERFORM Event Display: Patient Education Leaflets Authored Date: [id number] How to Know You Are in Labor ?? How to Know You Are in Labor - Video Most women start to go into labor around the baby???s due date. This is typically around 40 weeks of . To view the video go to this web address: [email or web address] Or, scan this QR code with your smart phone Last Reviewed Date: 2019 ?? 8989-3822 [employer]. All rights reserved. This information is not intended as a substitute for professional medical care. Always follow your healthcare professional's instructions. ?? * Shannon Norton RN: PERFORM Event Display: Patient Education Leaflets Authored Date: [id number] False Labor ?? [id number] False Labor If your is at 37 weeks or longer and you are having contractions that are not true labor,you are having false labor. It's not time yet to give to your baby. True labor contractions can start unevenly but soon take on a regular pattern. As time goes on, thecontractions will get stronger. Also, the intervals between the contractions will get shorter. Evenat the onset, these contractions last at least 30 seconds and may increase to a minute.??True laborcontractions often start in the back and then move to the front. False labor contractions can be strong, frequent, and painful, but there is no regular pattern. Theintensity can vary from strong to mild to strong again.??False labor contractions are most often felt in the front.??While true labor contractions don???t stop no matter what you are doing, false labor contractions may stop on their own??or when you rest or move around. False labor contractions might make you feel anxious or lose sleep. But they don???t mean that you are sick or that anything is wrong with your baby. You don???t need to take any medicine for false labor. Sometimes, it may be too hard to tell false labor from true labor. In such cases, you may need to have a vaginal exam. This allows your healthcare provider to check for changes in the cervix that only occur with true labor. Home care ??? It may help to drink plenty of water and take warm baths. Do what you can ahead of time to prepare for giving so you???ll have less to worry about later. ??? Keep a record of yourcontractions. Write down what time each one starts and how long it lasts. A stopwatch is helpful. Look for the pattern of regularly spaced out contractions with a gradual increase in the time each one lasts. ??? Don???t be embarrassed about going to the hospital with a ???false alarm.?? Think of it as good practice for the real thing. ? Follow-up care Follow up with your healthcare provider, or as advised. If you are very worried, confused, can???t eat or sleep, or have questions about your health or ,??schedule an appointment with your provider. ?? When to seek medical advice Call your healthcare provider right away if any of these occur: ??? You are fewer than 37 weeks along in your and you???re having contractions. ??? You have contractions that are regular, getting longer, stronger, and closer together. ??? Your water breaks. ??? You have vaginal bleeding. ??? You feel a decrease in your baby???s movement or any other unusual changes.? You???re not sure if you are having false or true labor. ?? Last Reviewed Date: 2021 ?? The [employer]. All rights reserved. This information is not intended as a substitute for professional medical care. Always follow your healthcare professional's instructions. ?? Patient Care team information Care Team Personnel Name: Ellie HOLLAND , Leydi Miller Position: Reference Physician Member Role: PCP Address: Address: [facility] [address] Name: Shannon Norton RN Position: [facility] RN Member Role: Patient Care Provider Care Team Related Persons Name: KEZIA RICHTER Address: [address] [address]
--- OUTSIDE RECORDS SUMMARY | 2024-06-19 19:21 | XMS_ITS | Continuity of Care Document ---
Author Organization [facility] Address Unknown Care Team Providers Care Gusset Ripper Name Role Phone Ellie HOLLAND, Leydi Miller Primary Care Physician Encounter [facility] [place] Date(s): 01/23/22 - 02/22/22 [facility] Allergies, Adverse Reactions, Alerts No Known Allergies Immunizations Given and Recorded Vaccine Date Status Refusal Reason SARS-CoV-2 (COVID-19) mRNA BNT-162b2 vac 05/05/21 Recorded SARS-CoV-2 (COVID-19) mRNA BNT-162b2 vac 01/28/21 Recorded Medications aspirin 81 mg oral delayed release tablet 162 mg, 2, tablet, By Mouth, Daily, # 90 tablet, Refills 2, Tot. Refills 2, Maintenance, 01/14/22 18:19:00 EDT, Route to Pharmacy Electronically, [facility], Partial fill upon patient request if the prescription is for a schedule I... Start Date: 01/14/22 Status: Ordered ferrous sulfate 325 mg oral tablet 1 tablet = 325 mg, By Mouth, Every other day, # 15 tablet, 6 Refills, Maintenance, 01/16/22 9:46:00EDT, [facility], Partial fill upon patient request if the prescription is for aschedule II opioid drug., 170, cm, 01/14/22 14:56:0... Start Date: 01/16/22 Stop Date: 08/14/22 Status: Ordered Multivitamins with Vitamin B Complex, Vitamin C, Minerals and L- Methylfolate oral capsule 1 capsule, By Mouth, Daily, # 30 capsule, 0 Refills, Maintenance, 12/15/21 10:50:00 EDT, Capsule, [facility], Partial fill upon patient request [...]
--- OUTSIDE RECORDS SUMMARY | 2024-06-19 19:21 | XMS_ITS | Continuity of Care Document ---
Author Organization [facility] Address [address] [place] [id number]- Care Team Providers Care Accounts Supervisor Name Role Phone Ellie HOLLAND, Leydi Miller Primary Care Physician Encounter [facility] [place] Date(s): 05/05/22 - 07/02/22 [facility] [address] [address]- Attending Physician: Not on Staff, Attending MD Referring Physician: Carol Ann Jaquez CNM [...] 01/14/22 18:19:00 EDT, Route to Pharmacy Electronically, [facility], Partial fill upon patient request if the prescription is for a schedule I... Start Date: 01/14/22 Status: Ordered docusate sodium 100 mg oral tablet 1 tablet = 100 mg, By Mouth, 2 times a day, PRN for constipation, # 60 tablet, 0 Refills, Maintenance, 03/12/22 19:31:00 EDT, Tablet, [facility], Partial fill upon patient requestif the prescription is for a schedule II opioid rob... Start Date: 03/12/22 Status: Ordered ferrous sulfate 325 mg oral tablet 1 tablet = 325 mg, By Mouth, Every other day, # 45 tablet, 3 Refills, Maintenance, 08/14/22 9:46:00EST, [facility], Partial fill upon patient request if the prescription is for aschedule II opioid drug., 170, cm, 04/08/22 15:00:0... Start Date: 08/14/22 Status: Ordered ferrous sulfate 325 mg oral tablet 1 tablet = 325 mg, By Mouth, Every other day, for 30 days, # 15 tablet, 6 Refills, Hard Stop 08/14/22 9:46:00 EST, 01/16/22 9:46:00 EDT, [facility], Partial fill upon patient request if the prescription is for a schedule II opioid... Start Date: 01/16/22 Stop Date: 08/14/22 Status: Ordered Multivitamins with Vitamin B Complex, Vitamin C, Minerals and L- Methylfolate oral capsule 1 capsule, By Mouth, Daily, # 30 capsule, 10 Refills, Maintenance, 03/12/22 11:52:00 EDT, Capsule, [facility], Partial fill upon patient request [...] Physician Member Role: PCP Address: Address: [address] [place] [address]- Care Team Related Persons Name: KEZIA RICHTER Address: home [address] [place] [id number]
--- OUTSIDE RECORDS SUMMARY | 2024-06-19 19:21 | XMS_ITS | Continuity of Care Document ---
Author Organization [facility] ter Address [address] [place] [id number] Care Team Providers Care Crane Service Technician Name Role Phone Ellie HOLLAND, Leydi Miller Primary Care Physician [place] [facility] [place]03[place]22 - 08/06/[address] [address] Discharge Disposition: A-D/C Home Attending Physician: Roslyn Gutierrez MD Admitting Physician: Roslyn Gutierrez MD Referring Physician: Roslyn Gutierrez MD Allergies, Adverse Reactions, Alerts No Known [...] 09/30/22 10:13:00 EST, 08/05/22 10:13:00 EST, Capsule, [facility], 170, cm, 08/05/22 9:59:... Start Date: 08/05/22 Stop Date: 09/30/22 Status: Ordered docusate sodium 100 mg oral capsule 100 mg, 1, capsule, By Mouth, 2 times a day, PRN, with plenty of water, # 60 capsule, Refills 2, Tot. Refills 2, Maintenance, for constipation, 08/05/22 10:10:00 EST, Route to Pharmacy Electronically, [facility], 170, cm, 08/05/22... Start Date: 08/05/22 Stop Date: 11/03/22 Status: Ordered ferrous sulfate 325 mg oral tablet 1 tablet = 325 mg, By Mouth, Every other day, # 45 tablet, 3 Refills, Maintenance, 08/14/22 9:46:00EST, [facility], Partial fill upon patient [...] 08/05/22 10:11:00 EST, Route to Pharmacy Electronically, [facility]... Start Date: 08/05/22 Stop Date: 12/03/22 Status: Ordered Multivitamins with Vitamin B Complex, Vitamin C, Minerals and L- Methylfolate oral capsule 1 capsule, By Mouth, Daily, # 30 capsule, 10 Refills, Maintenance, 03/12/22 11:52:00 EDT, Capsule, [facility], Partial fill upon patient [...] of marijuana use Confirmed Active Confirmed Active Vital Signs Most recent to oldest [Reference Range]: 1 2 3 Height 170 cm (08/06/22 12:00 AM) 170 cm (08/05/22 4:00 PM) 170 cm (08/05/22 8:30 AM) Weight 80.3 kg (08/03/22 7:57 PM) 80.3 kg (08/03/22 7:32 AM) Oxygen Saturation [94-100 %] 100 % (08/06/22 12:00 AM) 98 % (08/05/22 12:00 AM) 100 % (08/04/22 5:45 AM) Pulse Rate [55-90 bpm] 83 bpm (08/06/22 8:30 AM) 96 bpm *H* (08/06/22 12:00 AM) 91 bpm *H* (08/05/22 4:00 PM) Body Mass Index [18.5-24.99 kg/m2] 27.79 kg/m2 *H* (08/03/22 7:32 AM) Blood Pressure [90-138/55-84 mm Hg] 105/64mm Hg (08/06/22 8:30 AM) 104/64mm Hg (08/06/22 12:00 AM) 113/66mm Hg (08/05/22 4:00 PM) Respiratory Rate [16-30 br/min] 19 br/min (08/06/22 8:30 AM) 18 br/min (08/06/22 12:00 AM) 18 br/min (08/05/22 4:00 PM) Temperature [96.8-100.4 DegF] 98.6 DegF (08/06/22 8:30 AM) 98.6 DegF (08/06/22 12:00 AM) 99.0 DegF (08/05/22 4:00 PM) Mode of Delivery (Oxygen) Room air (08/06/22 8:30 AM) Room air (08/06/22 12:00 AM) Room air (08/05/22 12:00 AM) Blood pressure sites Arm, left (08/06/22 8:30 AM) Arm, right (08/05/22 4:00 PM) Arm, right (08/05/22 8:30 AM) Temperature Route Oral (08/06/22 8:30 AM) Oral (08/06/22 12:00 AM) Oral (08/05/22 4:00 PM) Dry Weight 80.3 kg (08/03/22 7:32 AM) Weight Obtained Via Standing scale (08/03/22 7:57 PM) Patient/family stated (08/03/22 7:32 AM) Dry Weight Obtained Via Patient/family s tated (08/03/22 7:32 AM) Social History Social History Type Response Smoking Status Never (less than 100 in lifetime) entered on: 12/15/21 Sex History and physical note * Dorinda Saunders CNM: PERFORM Event Display: History and Physical Hospital Authored Date: Patient: ??JOSE MCCOY ? Age:??22 Years?Sex:??Female?:??2000?? OB Reason for Admission OB Reason for Admission Reason for admission: Labor LMP/EGA/SONI Gestational Age (EGA) and SONI? * Note: EGA calculated as of 08/03/2022 ?? SONI:??07/26/2022?EGA*:??41 weeks 1 day ? History?(0,0,0,0)?Method:??Last Menstrual Period??(10/19/2021) History of Present Illness 22yo woman at 41w1d reports painful UCs getting closer together and more intense since her visit to [facility] yesterday morning. She has not slept in >24 hours. She felt a gush of fluid ~4am but has not had any leaking since. Good movement. FOB Jose at bedside for support Plans epidural Review of Systems General: No fevers or chills Neuro: No headache, changes in vision CV: No chest pain Pulmonary: no shortness of breath GI: No N/V or RUQ pain : Some leaking fluid, no??bleeding Ext: No swelling, or redness of the legs Physical Exam Constitutional?? Appearance: Normal affect.? Heart Normal. RRR. Lungs Normal. CTA Lymphatic?? Lymphatic: Normal exam. ? Skin?? Skin: Normal exam. ? Neurological/Psychiatric?? Orientation: Time, Place, Person. ? Affect: Normal. ? No headaches, no visual disturbances Abdomen/GI?? gravid -??40 week size Not Tender. ? No Masses. ? Gynecologic?? External Genitalia: no lesions Urethral meatus: Normal exam. ? Urethra: normal to palpation.? Vagina: Normal exam, normal support, no lesions, no discharge.? OB Assessment Baby A Cervical Position:Right occiput anterior Estimated Weight:3000 gm Membrane Status:Intact Uterine Number of Contractions per 10 minutes2 Monitor Mode, UterineExternal Cervical Cervical Dilatation4 cm Cervical [id number]% Station-2 Assessment/Plan Normal labor (O80):??Overall reassuring maternal and status with Category 1 FHR tracing Few variable decelerations vs loss on information in [facility] - will continue to monitor Plans epidural PPH Risk low PPBC: Plans Depo before discharge Boy: Plans circumcision Team aware of admission ?? Anemia in (O99.019):??Taking Fe and PNV CBC on admission IV ?? History of depression (Z86.59):??No medication or current therapy Stable in Be aware for depression risk ?? OB History History?(0,0,0,0)?No previous pregnancies history [...] (01/14/22) Problem List Active Active Problem List Anemia in : (Medical) Anxiety: (Medical) BMI less than 19,adult: (Medical) History of depression: (Medical) History of marijuana use: (Medical) History of pyelonephritis: (Medical) : (Medical) : (Obstetric) (10/20/21) Procedure/Surgical [...] Plan OB Plan Circumcision Plan: Before discharge (08/03/22) Contraceptives: Depoprovera (08/03/22) Infant Feeding Plan: Breast milk (08/03/22) Labor Coping Mechanisms: No pharmacological interventions, Other: Reviewed options 06/16 (08/03/22) Patient Requests: Jordin Quick - Yes circ (08/03/22) Lab Results Test Name Test Result Date/TimeHgb 10.3 Gm/dL (Low) 05/06/2022 13:27 EDT Hct 30.6 % (Low) 05/06/2022 13:27 EDT Platelet Count 279 k/mm3 05/06/2022 13:27 EDT Blood Type O Positive 12/22/2021 19:37 EDT GBS PCR Result Not detected 06/30/2022 14:53 [facility] Hospital Progress note * Thee ALFONSO REHABILITATION TEAM LEAD, Ozzie Klein: PERFORM Event Display: Progress Note Hospital Authored Date: [id number] Patient: ??JOSE MCCOY ? Age:??22 Years?Sex:??Female?:??2000?? Subjective pt awake, sitting in bed, family sleeping at bedside. she just received her depo injection-has usedit before, aware of risk for irregular bleeding. She feels ready to go home, has preps in place andgood supports.?? She wants to breastfeed but baby having difficult time latching, also having somewhat of a difficult time taking bottle nipple.?? note from was to get OT eval, has not been ordered yet, pedi has not seen baby yet either today.?? +void, +flatus, taking ibuprofen/tylenol prn w good relief Review of Systems General: No fevers or chills Neuro: No headache, changes in vision CV: No chest pain Pulmonary: no shortness of breath GI: No N/V. : Lochia??< menses Ext: No swelling, or redness of the legs Physical Exam Vitals & Measurements T:??98.6?F ?? HR:??103(Monitored)?? OR:??83?? RR:??19?? BP:??105/64?? SpO2:??100%?? HT:??170??cm?? WT:??3.525??kg?? BMI:??27.79?? General: Awake, alert HEENT: Within normal limits Breast: Not engorged, nipples intact and everted Abdomen: Fundus is firm??@ umbilicus -1 Perineum: intact, no erythema, no edema Ext: No edema of bilateral lower ext. Assessment/Plan Anemia in (O99.019):? CBC on admission --11.3/33.7-improved from 3T ? History of depression (Z86.59):??No medication or current therapy Stable in , feels stable in immediate PP period?? Reviewed concerning sx for PPD/anxiety, when to reach out ?? examination following vaginal delivery (Z39.2):??pt wishes to pump if she can't get babyto latch, waiting on OT and Pedi eval babyscripts ordered. pt had 2 elevated diastolics during transition, normotensive otherwise, asymptomatic motrin Rx sent d/c papers given and reviewed waiting on baby circumcision d/c home today ?? OB Summary : 1 . Baby A - Weight: 3.525 kg Baby A - Date, Time of : 08/04/22 06:14:00 Baby A - Gender: Male Baby A - Complications: None EGA at Documented Date, Time: 41W 2D Weight at Delivery Baby A - Delivery Type: Vaginal Delivery Complications: None OB History History?(0,0,0,0)?No previous pregnancies history have been recorded Active Problem List Active Problem List Anemia in : (Medical) Anxiety: (Medical) BMI less than 19,adult: (Medical) History of depression: (Medical) History of marijuana use: (Medical) History of pyelonephritis: (Medical) : (Medical) : (Obstetric) (10/20/21) Home Medications Acetaminophen: 650 mg = 2 capsule, By Mouth, Every 4 hours, PRN (as needed for pain), not to [id number] mg/day Docusate: 100 mg = 1 capsule, By Mouth, 2 times a day, PRN (for constipation), with plenty of water Ferrous Sulfate: 325 mg = 1 tablet, By Mouth, Every other day Ibuprofen: 600 mg = 1 tablet, By Mouth, 4 times a day, with food or milknot to exceed 3200 mg/day Multivitamin, : 1 capsule, By Mouth, Daily Medications Medications (10) Active SCHEDULED: (1) Lidocaine 1% Inj (20 mL) (Lidocaine 1% Inj) ??20 mL, Subcutaneous Injection, Once CONTINUOUS: (2) Lactated Ringers (1000 mL) Cont IV 1,000 mL (LR 1,000 mL) ??1,000 mL, IV Infusion, 125 mL/hr Oxytocin 30 units / 500 mL IV Premix 30 units (Oxytocin 30 units in 500 mL Premix IV 30 units) ??30units 500 mL, IV Infusion, 2 mL/hr PRN: (7) Acetaminophen 325 mg Tablet (Acetaminophen Tablet) ??650 mg, By Mouth, Every 4 hours Calcium Carbonate 500 mg (Calcium 200 mg) Chewable Tablet (Tums 500 mg Tablet) ??1,000 mg 2 tablet,Chew, 3 times a day Docusate Sodium 100 mg Capsule (Docusate Sodium Capsule) ??100 mg 1 capsule, By Mouth, 2 times a day Ibuprofen 800 mg Tablet (Ibuprofen Tablet) ??800 mg, By Mouth, Every 8 hours MorPHINE 2 mg Inj Syringe (MorPHINE Inj) ??5 mg, IV Push Slowly, Every 4 hours MorPHINE 2 mg Inj Syringe (MorPHINE Inj) ??5 mg, Intramuscular, Every 4 hours Ondansetron 2mg/mL Inj (2mL Vial) (Ondansetron Inj) ??4 mg, IV Push, Every 8 hours * Alanis Vasquez RN: PERFORM, SIGN, VERIFY, MODIFY, SIGN Event Display: Progress Note Hospital Authored Date: Patient: JOSE MCCOY Age: 22 years Sex: Female : 2000 Associated Diagnoses: None Author: Alanis Vasquez RN Assumed pt. care around 1500. Pt. A/OX4. VSS. Pt. pain 10/30, per pt. denies wanting any pain medication at this time. Pt. reports fully emptying bladder when voiding. Pt. reports LBM 08/04, pt. reports passing gas. Pt. bleeding well controlled. Pt. formula feeding, saw pt. this AM. Pt. and FOB deny needing anything at this time. Pt. and FOB bonding well with infant at bedside. Plan is for pt. to be d/c tomorrow after has repeat bili. Call mendes within reach. * Anny Reveles RN: PERFORM, SIGN, VERIFY Event Display: Progress Note Hospital Authored Date: [id number] Patient: JOSE MCCOY Age: 22 years Sex: Female : 2000 Associated Diagnoses: None Author: Anny Reveles RN pt with vital signs stable.bonding well with .fundus firm with mild lochia.using tucks to perineum.provided sitz bath and encouraged use.viding qs.med with stool softener as awaiting bowel movement since delivery.given EPDS to fill out.pt has all supplies and fresh po fluids.fob present and supportive Note * Ivy Richter RN: PERFORM Event Display: Care Team Progress Note Authored Date: Patient: ??JOSE MCCOY ? Age:??22 Years?Sex:??Female?:??2000?? Subjective Follow up visit for patient formula feeding baby. Assessment/Plan Pt had OT visit yesterday.?? Currently planning on Fomula and bottle feeding. Discussed pumping at home and provided EBM. Reviewed pumping q 3 hours ATC. No questions, has pump. ?? AHMET Comer, IBCLC OB Summary : 1 . Baby A - Weight: 3.525 kg Baby A - Date, Time of : 08/04/22 06:14:00 Baby A - Gender: Male Baby A - Complications: None EGA at Documented Date, Time: 41W 2D Weight at Delivery Baby A - Delivery Type: Vaginal Delivery Complications: None OB History History?(0,0,0,0)?No previous pregnancies history have been recorded Active Problem List Active Problem List Anemia in : (Medical) Anxiety: (Medical) BMI less than 19,adult: (Medical) History of depression: (Medical) History of marijuana use: (Medical) History of pyelonephritis: (Medical) : (Medical) : (Obstetric) (10/20/21) Home Medications Acetaminophen: 650 mg = 2 capsule, By Mouth, Every 4 hours, PRN (as needed for pain), not to [id number] mg/day Docusate: 100 mg = 1 capsule, By Mouth, 2 times a day, PRN (for constipation), with plenty of water Ferrous Sulfate: 325 mg = 1 tablet, By Mouth, Every other day Ibuprofen: 600 mg = 1 tablet, By Mouth, 4 times a day, with food or milknot to exceed 3200 mg/day Multivitamin, : 1 capsule, By Mouth, Daily Medications Medications (10) Active SCHEDULED: (1) Lidocaine 1% Inj (20 mL) (Lidocaine 1% Inj) ??20 mL, Subcutaneous Injection, Once CONTINUOUS: (2) Lactated Ringers (1000 mL) Cont IV 1,000 mL (LR 1,000 mL) ??1,000 mL, IV Infusion, 125 mL/hr Oxytocin 30 units / 500 mL IV Premix 30 units (Oxytocin 30 units in 500 mL Premix IV 30 units) ??30units 500 mL, IV Infusion, 2 mL/hr PRN: (7) Acetaminophen 325 mg Tablet (Acetaminophen Tablet) ??650 mg, By Mouth, Every 4 hours Calcium Carbonate 500 mg (Calcium 200 mg) Chewable Tablet (Tums 500 mg Tablet) ??1,000 mg 2 tablet,Chew, 3 times a day Docusate Sodium 100 mg Capsule (Docusate Sodium Capsule) ??100 mg 1 capsule, By Mouth, 2 times a day Ibuprofen 800 mg Tablet (Ibuprofen Tablet) ??800 mg, By Mouth, Every 8 hours MorPHINE 2 mg Inj Syringe (MorPHINE Inj) ??5 mg, IV Push Slowly, Every 4 hours MorPHINE 2 mg Inj Syringe (MorPHINE Inj) ??5 mg, Intramuscular, Every 4 hours Ondansetron 2mg/mL Inj (2mL Vial) (Ondansetron Inj) ??4 mg, IV Push, Every 8 hours * Amaris Tee RN: PERFORM Event Display: Discharge/Transfer Note Hospital Authored Date: [id number] Nursing Discharge Note Entered On: 08/06/2022 13:36 EST Performed On: 08/06/2022 13:35 EST by Amaris Tee RN Nursing Discharge Note 2 Discharge Time : 08/06/2022 13:25 EST Discharge Level of Care at Discharge : Home/Correction/Foster Care Patient Left Unit Via : Ambulatory Patient Accompanied Off Unit with : Other: mother DC Instructions Provided & Signed by Pt : Yes Patient Understands D/C Instructions : Yes Patient Instructions Discharge Signed : Yes Did Pt have Specialty Bed or Wound Vac : No Amaris Tee RN - 08/06/2022 13:35 EST * Thee ALFONSO REHABILITATION TEAM LEAD, Ozzie Klein: PERFORM Event Display: Discharge/Transfer Note Hospital Authored Date: [id number] Patient: ??JOSE MCCOY ? Age:??22 Years?Sex:??Female?:??2000?? Admit Date Admission Date: 08/03/2022 Discharge Date 08/06/22 OB Reason for Admission OB Reason for Admission Reason for admission: Labor Hospital Course spontaneous labor, svb, 2nd degree perineal laceration repaired, difficulty initiating on day of discharge Objective/Physical Exam on Day of Discharge Vitals & Measurements T:??98.6?F ?? HR:??103(Monitored)?? OR:??83?? RR:??19?? BP:??105/64?? SpO2:??100%?? HT:??170??cm?? WT:??3.525??kg?? BMI:??27.79?? Assessment/Plan/Discharge Diagnosis Anemia in (O99.019):? CBC on admission --11.3/33.7-improved from 3T ? History of depression (Z86.59):??No medication or current therapy Stable in , feels stable in immediate PP period?? Reviewed concerning sx for PPD/anxiety, when to reach out ?? examination following vaginal delivery (Z39.2):??pt wishes to pump if she can't get babyto latch, waiting on OT and Pedi eval babyscripts ordered. pt had 2 elevated diastolics during transition, normotensive otherwise, asymptomatic motrin Rx sent d/c papers given and reviewed waiting on baby circumcision d/c home today ?? Future Appointments Wednesday 11:40 AM EST ?? With: Jm ALFONSO, Loida Walter Where: [facility] [employer]PERATIONS ASSISTANT [facility] [place] [address]- Delivery Summary Delivery Summary Maternal Information ??Delivery Information ?Gestational Age at Delivery: ??41W 2D ?Anesthesia OB: ??Epidural ??08/04/22 09:58:44, Epidural ??08/03/22 15:54:52 ?Obstetrical Laceration: ??Vaginal laceration ?Vaginal Laceration: ??Midline ?Vaginal Laceration Repair: ??Chromic suture ?Anesthesia for Repair: ??Epidural, Local ?Delivery Complications: ??None ?Blood Loss(ml): ??250 mL ? Baby A ??Delivery Information ?Delivery Type: ??Vaginal ?Date, Time of : ??08/04/22 06:14:00 ? Position: ??Supine ?Foot of bed removed: ??No ?Delayed Cord Clamping: ??Yes ?Placenta Delivery Date/Time: ??08/04/22 06:18:00 ??Care Team ?Delivery CNM: ??Ebony Eisenberg CNM ?machine tech #1: ??Valerie LEO, Pat ?machine tech #2: ??Andrey LEO, Feliciano ?Granular Operator: ??Ese Valentin DO, V ?Anesthesiology Attending: ??Maria Fernanda Wood DO ?Time NICU Team Called: ??08/04/22 06:20:00 ??Labor Information ?ROM Date, Time: ??08/04/22 01:16:00 ?ROM to Delivery Total Time: ??298 min ?3rd Stage, Length of Labor: ??4 min ? monitoring: ??External monitor ?? Information ? Outcome: ??Live ? Position: ??Left occiput posterior ? Weight: ??3.525 kg ? Score 1 minute: ??8 ? Score 5 minute: ??9 ? Score 10 minute: ??9 ?Transferred To: ?? Care area with Family ?Gender: ??Male ? Discharge Medications ???Acetaminophen (acetaminophen 325 mg oral capsule)???Docusate (docusate sodium 100 mg oral capsule)???Ferrous Sulfate (ferrous sulfate 325 mg oral tablet)???Ibuprofen (ibuprofen 600 mg oral tablet)???Multivitamin, ( Multivitamins with Vitamin B Complex, Vitamin C, Minerals and L-M ethylfolate oral capsule) Immunizations during Hospitalization Vaccine Date Statusinfluenza virus vaccine, inactivated 06/16/2022 Recorded tetanus/diphtheria/pertussis, acel(Tdap) 05/05/2022 Recorded SARS-CoV-2 (COVID-19) mRNA BNT-162b2 vac 05/05/2021 Recorded SARS-CoV-2 (COVID-19) mRNA BNT-162b2 vac 01/28/2021 Recorded Infant Feeding Method No Results Patient Education Titles OB PP [facility]- Discharge Instructions?? * Amaris Tee RN: PERFORM Event Display: Patient Education/Instruction Authored Date: [id number] Inpatient Adult Discharge Instructions [address] [id number] Name: JOSE MCCOY : 2000 Visit: 08/03/2022 05:04:00 Current Date: 08/06/2022 12:15 Account: [id number] Inpatient Adult Discharge Instructions We would like [...] and their families. Surveys are administered by [employer] ?? If further treatment with your primary care physician or another doctor is recommended, it is important for you to keep the appointment. Call your primary care physician or return to the Emergency Department immediately if your condition worsens, fails to improve, or new symptoms develop. If you need to find a doctor, you can call [facility] for a referral at [phone] or toll free at [phone] ([phone]) or log in to [email or web address].. ?? You can view and manage your care through the patient portal or by using a health care serenity of your choosing. [employer] is a website that allows you to securely view your medical information including your hospital discharge summary, office visit summaries, medications and follow-up visits. You can also request appointments, renew medications, and request access to your medical information using a health care serenity of your choosing, or just ask a question. You can enroll at [email or web address] or register during your next office visit. You have been discharged from [facility], Patient Care Unit: [facility]. If you have any questions regarding these instructions after you leave, please call us and we will be happy to assist you. [facility] Your Care Team Attending Physician Roslyn Gutierrez MD Discharging Providers Thee ALFONSO NP, Ozzie Klein Reason for Admission Labor Your Diagnosis Anemia in History of depression Normal labor arrhythmia during labor examination following vaginal delivery care following vaginal delivery Tests Performed Below is a partial list of the tests performed during your hospitalization. You may have had other tests and procedures not included in this list. Please discuss all test results with your provider. CBC Type and Screen Primary Care Provider Ellie HOLLAND , Leydi Miller Advance Directive Health Care Proxy on File No Patient has a Designated Caregiver: No Discharge Vitals Temperature: 98.6 DegF Height: 170 cm Pulse Rate: 83 bpm Weight: 80.3 kg Respiratory Rate: 19 br/min Body Mass Index:??27.79 kg/m2??High Systolic Blood Pressure: 105 mm Hg Body surface area: 1.95 Diastolic Blood Pressure: 64 mm Hg ?? Oxygen Saturation: 100 % ?? Studies Pending All tests and labs ordered during this hospital stay have been completed unless listed below. Please discuss all pending results with your provider listed above in these instructions. ?? COVID-19 (2019 Novel Coronavirus) PCR What to do next Instructions From Your Doctor Discharge Orders Instructions from your Care Team Discharge Care Instructions for the New Mom?? Please take a few moments to read through these helpful instructions before you leave the hospital.??Your nurse will be glad to answer any questions you may have. ??You can also find this and more information throughout the purple??Becoming a Family??booklet,??[facility] New Beginnings Guide??and the?? Consultation Services Guide??given to you after the of your baby. ??You may also phone our nurses stations if you have further questions. ??[facility]: ??First Floor ([phone]). ?? Please call your provider if you have any questions or concerns ??before your next appointment. For ongoing support??please?Like?us on our Facebook page?[facility] New Beginnings?and sign up for our email newsletter at??[email or web address]. ??News and information will be sent to you??until your baby???s third birthday. Instructions for the New Mother Activity:?? For the next 2 weeks at home?no heavy lifting, avoid unnecessary stair climbing, and no driving (especially if you are taking medicine that may make you sleepy or feel that you are sleep deprived). ?? For the next 4-6 weeks - no tampons, no douches, no sexual intercourse. Use your michelle bottle to rinse your perineum until your vaginal flow stops. ??If you have stitches in your bottom, they generally dissolve within 7-10 days. ??Apply Tucks/witch jane pads until your soreness subsides. ??Use your bathroom at home every 3 to 4 hours, rinse, and change your pads. Warm showers feel great on achy muscles, sore backs and sore bottoms. Exercise: Walking is the best form of exercise. ??Wait until your follow up appointment with your provider in4-6 weeks before engaging in more strenuous activity. Diet: Drink plenty of fluids to avoid constipation and to help support your recovery. Eat plenty of iron rich foods such as red meat, iron fortified cereals like Total and Cream of Wheat, raisins, prunes, greens and spinach. ??These will help to build your blood count back up as all women lose some blood after delivery. ??Also add foods rich in Vitamin C such as strawberries, oranges, papayas, kale and mendes peppers. Continue to take your vitamins if you are . ??If you are not follow the instructions of your provider. ??If you were prescribed iron supplements such as ferrous sulfate, it is important to continue these until your doctor or clam shucker tells you to stop. ?? Breast Care for Bottle Feeding Mothers: Engorgement may occur within the first week after delivery. ??Your breasts may become hard and verytender. ??A cool compress of cleaned raw green cabbage leaves applied to the breast and changed as leaves wilt has been proven helpful for many women. ??Ice packs or frozen bags of peas also work nicely to ease the discomfort. ??The soreness will only last a couple of days. Keep your back turned to the water while showering to decrease breast stimulation. Wear a snug fitting bra such as a sports bra. ?? . Control: Your doctor or clam shucker will discuss control methods with you [facility] or at your [facility]up. ??Be sure to let your provider know if you are . You received a Depo Provera injection on _08/06/2022 . ??This control method is effective as long as you repeat it every 3 months.?Schedule your next dose before___10/2022____ . ?? Pain Management: Cramping after is common and increases in strength with each baby you have. ??If you experience painful cramps, and have no allergies to acetaminophen (Tylenol) or ibuprofen (Motrin), you may continue to take these medications as you did in the hospital. ??Ibuprofen is also helpful with back aches following epidurals, perineal pain following a vaginal delivery, and moderate incisional pain after a section or a tubal ligation. ?? If you experience gas distention, especially after surgery, you may take an over the counter medication called simethicone. ??Take these chewable tablets 4 times a day as needed and directed on the package. ??Keep moving. ??Walking or rocking in a chair, will help to move the gas along. ??Nahid tea made with heated nahid pardeep (instead of water) and a tea bag, stirred to dissolve carbonation (bubbles) is a helpful drink to soothe a gassy stomach. Warning Signs of a Problem to Notify Your Doctor or Director Of Cloud Services of: Heavy vaginal bleeding?which is??soaking a pad every hour??with bright red blood. Passing blood clots the size of an egg or larger. An incision that is not healing. A temperature greater than or equal to 100.4 especially if accompanied by any of the following symptoms?painful, frequent urination; extreme back or flank pain; lower belly pain with a foul smell to your vaginal flow; a red hard hot area on your breast. ?? Severe headache that does not go away after taking acetaminophen or ibuprofen. ?? A headache that changes your vision, including seeing spots or blurring. Right sided upper abdominal pain along the rib cage area. Pain in your legs that is warm and tender to the touch. depression signs may include?loss of interest in your baby, weepiness, difficulty focusing, weight loss with no appetite, exhaustion, feeling overwhelmed or anxious, feelings??of despair, or thoughts of harming yourself or your baby. ??These symptoms are important and should be discussed with your doctor or clam shucker. depression may develop over a period of time and needs prompt medical attention. ??Do not suffer in silence. ??In both the??Becoming a Family??booklet and the??[facility]??New Beginnings Guide??there is a screening tool used to identify women at risk, called the Skidmore Scale which you have taken in the office prior to delivery and again during your ho spital stay. ??Three to four weeks after your delivery, and before your check with your provider, take this test and share your results with your provider. ??Be sure to mention any score of 10 or more. ?? Many women, and even some partners, may experience the?baby blues?? . ??This is a state of feeling overwhelmed and weepy. ??Discomfort from childbirth, hormonal changes, exhaustion, changes to your body and lifestyle are a few of the things that contribute to the highs and lows new parents go through. ??Don???t be afraid to ask your partner or family and friends for some help at home so you can get some rest and a few minutes to yourself. ??The blues will quickly pass. Personal Safety: Every person has the right to feel safe at home and live free from physical or emotional harm. ??Ifyou have suffered mental or physical abuse at home, you are not alone. ??There is help. ??Please call [facility] or the [facility] at [phone]. Scheduled Follow-Up Appointments Wednesday 11:40 AM EST ?? With: Loida Oneal CNM Where: [facility] [employer] [address] [place] [address]- Discharge Medications JOSE MCCOY :2000 Visit Date:08/03/2022 Medications: Please continue your medications until treatment is completed or stopped by your provider. Medications not listed below should be discontinued. Discuss any questions related to medications with your provider. What How Much When Instructions Next Dose New Acetaminophen (acetaminophen 325 mg oral capsule) 2 capsule Oral Every 4 hours as needed for as needed for pain Duration: 14 Days Refills: 3 not to exceed 4000 mg/ day ?? Pickup at [facility] as needed New Ibuprofen (ibuprofen 600 mg oral tablet) 1 tab(s) Oral 4 times a day Duration: 30 Days Refills: 3 with food or milk ?? not to exceed 3200 mg/ day ?? Pickup at [facility] as needed Changed Docusate (docusate sodium 100 mg oral capsule) 1 capsule Oral Twice a day as needed for for constipation Duration: 30 Days with plenty of water ?? Pickup at [facility] Changed Ferrous Sulfate (ferrous sulfate 325 mg oral tablet) 1 tab(s) Oral Every other day Unchanged Multivitamin, ( Multivitamins with Vitamin B Complex, Vitamin C, Minerals and L-Methylfolate oral capsule) 1 capsule Oral Daily Pharmacy Information [facility]: [address], [place] [id number] [phone] Test Results Below is a partial list of the most recent Laboratory test results done prior to this discharge. You may have had other tests and procedures not included in this list. Please discuss all test resultswith your provider. CBC (08/03/2022) ???WBC - 12.8 k/mm3???RBC - 3.87 m/mm3???Hgb - 11.3 Gm/dL???Hct - 33.7 %???MCV - 87.1 femtoliters???MCH - 29.2 pg???MCHC - 33.5 g/dL???Platelet Count - 292 k/mm3???RDW-SD - 41.7 femtoliters???MPV - 10.8 femtoliters???Nucleated RBC (Automated) - 0.0 #/100 WBC'S???Abs. NRBC - 0.0 k/mm3 Type and Screen (08/03/2022) ???Blood Type - O Positive???Antibody Screen - Negative Allergies (NKA means No Known Allergies) NKA Problems Active Problems??(8) Anemia in ?? Anxiety?? BMI less than 19,adult?? History of depression?? History of marijuana use?? History of pyelonephritis? Education Materials Below is the list of Educational Leaflet Providered with your Discharge Instructions. OB PP [facility]- Discharge Instructions?? Valuables and Belongings I fully understand and agree that [facility] accepts no responsibility for all my [...] encouraged to send valuables and belongings home. ?? Review of Valuable and Belonging List: With patient Date for Pt to Sign Valuables/Belongings: 08/04/22 10:02:00 ?? Other Discharge Information ? Pulmonary Rehab Status?? Pulmonary Rehab Discharge Status?? Respiratory Rate: 19 br/min ? Common Emergency Awareness Tips IS [...] are strongly encouraged to quit. Please call [facility] from[employer]toB Link at [phone] or [phone] ([phone]) or log in to [email or web address] for referrals to smoking cessation programs. ?? The National Suicide Prevention Hotline is available 15/03 if you or someone you know needs to find a reason to keep living. By calling 1-531-020-[employer] (3316) you'll be connected to a skilled, trained counselor at a crisis center in your area. INPATIENT DISCHARGE INSTRUCTIONS SIGNATURE JOSE BELL Location:[facility] Registration Date and Time:08/03/2022 05:04 EST Primary Care Physician: Leydi Argueta MD, I JOSE MCCOY, have received the above patient education materials/instructions and have verbalized understanding. If ambulance or transport services are being used I further acknowledge being given a choice of service. ?? If you need to contact me, please call me at this number: . Patient/Events Associate Name: Patient/Events Associate Signature: Relationship to Patient: Witness Name/Signature: Date: * Yane Valdivia: PERFORM Event Display: Care Team Progress Note Authored Date: Patient: ??JOSE MCCOY ? Age:??22 Years?Sex:??Female?:??2000?? Subjective cart rounds day??1 assessment for assistance Patient??no previous experience Feeding sheet?? adequately filled out- all formula feeds Patient?? obtained personal pump Assessment/Plan Patient has been all formula feeding- she states that he doesn't want the breast- taught HE- small drops expressed- attempted feed- baby has very tight jaw- will only purse lips- sucks on tongue. attempted finger suck- baby clamps down on finger- will not open mouth enough for assessment of tongue tie. baby does not elicit cues or root for breast- tried small shield- can get baby to latch to shield but not effectively: no milk in shield- shallow/ painful/ fed baby 1-2 ml formula to start hunger cues- difficult to get bottle nipple past gum line- baby has recessed chin- attempted FB and laid back position with breast crawl- baby more engaged with breast crawl but still sucking on tongue and not breast- gave baby 7 more ML Formula- RN will bring symphony pump for adequate stimulation. patient will continue to attempt breast- feed Formula and pump every 2-3 hours- pedi informed of concerns and said they would have OT look at baby- LC to follow family tomorrow Basic education discussed with mother/family including:? Positioning infant for optimal feeding Asymmetric latch technique Frequent breast stimulation for initiation and maintenance of milk supply Engorgement prevention and management (page 12 guide) How to know your baby is getting enough (page 14 guide) Hand expression When to use a breast pump Consultation reference guide given to mother with contact information for services and ongoing support as needed.?? OB Summary : 1 . Baby A - Weight: 3.525 kg Baby A - Date, Time of : 08/04/22 06:14:00 Baby A - Gender: Male Baby A - Complications: None EGA at Documented Date, Time: 41W 2D Weight at Delivery Baby A - Delivery Type: Vaginal Delivery Complications: None OB History History?(0,0,0,0)?No previous pregnancies history have been recorded Active Problem List Active Problem List Anemia in : (Medical) Anxiety: (Medical) BMI less than 19,adult: (Medical) History of depression: (Medical) History of marijuana use: (Medical) History of pyelonephritis: (Medical) : (Medical) : (Obstetric) (10/20/21) Home Medications Acetaminophen: 650 mg = 2 capsule, By Mouth, Every 4 hours, PRN (as needed for pain), not to [id number] mg/day Docusate: 100 mg = 1 capsule, By Mouth, 2 times a day, PRN (for constipation), with plenty of water Ferrous Sulfate: 325 mg = 1 tablet, By Mouth, Every other day Ibuprofen: 600 mg = 1 tablet, By Mouth, 4 times a day, with food or milknot to exceed 3200 mg/day Multivitamin, : 1 capsule, By Mouth, Daily Medications Medications (11) Active SCHEDULED: (2) Lidocaine 1% Inj (20 mL) (Lidocaine 1% Inj) ??20 mL, Subcutaneous Injection, Once MedroxyPROGESTERone Acetate 150 mg Inj (Depo-Provera Inj) ??150 mg 1 mL, Intramuscular, On Discharge CONTINUOUS: (2) Lactated Ringers (1000 mL) Cont IV 1,000 mL (LR 1,000 mL) ??1,000 mL, IV Infusion, 125 mL/hr Oxytocin 30 units / 500 mL IV Premix 30 units (Oxytocin 30 units in 500 mL Premix IV 30 units) ??30units 500 mL, IV Infusion, 2 mL/hr PRN: (7) Acetaminophen 325 mg Tablet (Acetaminophen Tablet) ??650 mg, By Mouth, Every 4 hours Calcium Carbonate 500 mg (Calcium 200 mg) Chewable Tablet (Tums 500 mg Tablet) ??1,000 mg 2 tablet,Chew, 3 times a day Docusate Sodium 100 mg Capsule (Docusate Sodium Capsule) ??100 mg 1 capsule, By Mouth, 2 times a day Ibuprofen 800 mg Tablet (Ibuprofen Tablet) ??800 mg, By Mouth, Every 8 hours MorPHINE 2 mg Inj Syringe (MorPHINE Inj) ??5 mg, IV Push Slowly, Every 4 hours MorPHINE 2 mg Inj Syringe (MorPHINE Inj) ??5 mg, Intramuscular, Every 4 hours Ondansetron 2mg/mL Inj (2mL Vial) (Ondansetron Inj) ??4 mg, IV Push, Every 8 hours * Elsa Cerda RN: PERFORM Event Display: Patient Education Leaflets Authored Date: OB PP [facility]- Discharge Instructions ?? 209 Discharge Care Instructions for the New Mom and Baby Please take a few moments to read through these helpful instructions before you leave the hospital.?? Your nurse will be glad to answer any questions you may have.?? You can also find this and more information throughout the purple Becoming a Family booklet, [facility] New Beginnings Guide and the Consultation Services Guide given to you after the of your baby.?? You may also phone our nurses stations if you have further questions.?? [facility]:?? First Floor ([phone]), Second Floor ([phone]).?? Please call your provider if you have any questions or concerns?? before your next appointment. For ongoing support please ???Like?? us on our Facebook page ???[facility]???s New Beginnings?? andsign up for our email newsletter at [email or web address].?? News and information will besent to you until your baby???s third birthday. Instructions for the New Mother Activity: For the next 2 weeks at home ??? no heavy lifting, avoid unnecessary stair climbing, and no driving(especially if you are taking medicine that may make you sleepy or feel that you are sleep deprived).?? For the next 4-6 weeks - no tampons, no douches, no sexual intercourse. Use your michelle bottle to rinse your perineum until your vaginal flow stops.?? If you have stitches in your bottom, they generally dissolve within 7-10 days.?? Apply Tucks/witch jane pads until your soreness subsides.?? Use your bathroom at home every 3 to 4 hours, rinse, and change your pads. Warm showers feel great on achy muscles, sore backs and sore bottoms. Exercise: Walking is the best form of exercise.?? Wait until your follow up appointment with your provider in4-6 weeks before engaging in more strenuous activity. Diet: Drink plenty of fluids to avoid constipation and to help support your recovery. Eat plenty of iron rich foods such as red meat, iron fortified cereals like Total and Cream of Wheat, raisins, prunes, greens and spinach.?? These will help to build your blood count back up as all women lose some blood after delivery.?? Also add foods rich in Vitamin C such as strawberries, oranges, papayas, kale and mendes peppers. Continue to take your vitamins if you are .?? If you are not follow the instructions of your provider.?? If you were prescribed iron supplements such as ferrous sulfate, it is important to continue these until your doctor or clam shucker tells you to stop. Breast Care for Nursing Mothers: Wear a comfortable fitting, supportive nursing bra.?? An underwire bra is not recommended. Express drops of breast milk and rub over your nipples and areola (brown area) before and after each feeding to protect and heal sensitive skin and then air dry your nipples.?? If you are experiencing any soreness, you may purchase nipple cream such as TenderCare or Lansinoh.?? Use it in the following manner:?? finish your feeding or pumping session, self-express colostrum onto your nipple and air dry, apply the nipple cream to the nipple and areola.?? Use only small amounts for best results. If you are having difficulty getting the baby to latch onto the breast due to swelling of the areola, try applying pressure with your fingers for a couple of minutes above and below your nipple and walk your fingers outward softening the area and pushing the swelling away.?? This technique is knownas reverse pressure softening.?? For demonstrations of this and other techniques such as the [place] Hand Expression technique, please refer to the resources section of the Consultation Services Guide that you received from services. When your milk first comes in, usually within 3 to 5 days after delivery, you may experience engorgement.?? Your breasts may become swollen and very tender.?? Cold compresses work great to help with discomfort and reduce swelling. It will get better in a couple of days.?? Continue to nurse your baby frequently.?? Call [facility]???s Consultation Service at [phone], press 1 to schedule an outpatient appointment or press 3 and a fundraising consultant will return your call that day or the next if you call after 3pm. Breast Care for Bottle Feeding Mothers: Engorgement may occur within the first week after delivery.?? Your breasts may become hard and verytender.?? A cool compress of cleaned raw green cabbage leaves applied to the breast and changed as leaves wilt has been proven helpful for many women.?? Ice packs or frozen bags of peas also work nicely to ease the discomfort.?? The soreness will only last a couple of days. Keep your back turned to the water while showering to decrease breast stimulation. Wear a snug fitting bra such as a sports bra. ?? Control:? You received a Depo Provera injection on .?? This control method is effective as longas you repeat it every 3 months.?? Schedule your next dose before . ?? Pain Management:?? Cramping after is common and increases in strength with each baby you have.?? If you experience painful cramps, and have no allergies to acetaminophen (Tylenol) or ibuprofen (Motrin), you may continue to take these medications as you did in the hospital.?? Ibuprofen is also helpful with back aches following epidurals, perineal pain following a vaginal delivery, and moderate incisional pain after a section or a tubal ligation.?? If you experience gas distention, especially after surgery, you may take an over the counter medication called simethicone.?? Take these chewable tablets 4 times a day as needed and directed on the package.?? Keep moving.?? Walking or rocking in a chair, will help to move the gas along.?? Nahid tea made with heated nahid pardeep (instead of water) and a tea bag, stirred to dissolve carbonation (bubbles) is a helpful drink to soothe a gassy stomach. Warning Signs of a Problem to Notify Your Doctor or Director Of Cloud Services of: Heavy vaginal bleeding ??? which is soaking a pad every hour with bright red blood. Passing blood clots the size of an egg or larger. ?? A temperature greater than or equal to 100.4 especially if accompanied by any of the following symptoms ??? painful, frequent urination; extreme back or flank pain; lower belly pain with a foul smellto your vaginal flow; a red hard hot area on your breast.?? Severe headache that does not go away after taking acetaminophen or ibuprofen.?? A headache that changes your vision, including seeing spots or blurring. Right sided upper abdominal pain along the rib cage area. Pain in your legs that is warm and tender to the touch. depression signs may include ??? loss of interest in your baby, weepiness, difficulty focusing, weight loss with no appetite, exhaustion, feeling overwhelmed or anxious, feelings of despair, or thoughts of harming yourself or your baby.?? These symptoms are important and should be discussed with your doctor or clam shucker. depression may develop over a period of time and needs prompt medical attention.?? Do not suffer in silence.?? In both the Becoming a Family booklet and [facility] Guide there is a screening tool used to identify women at risk, called the Skidmore Scale which you have taken in the office prior to delivery and again during your hospital s trena.?? Three to four weeks after your delivery, and before your check with your provider, take this test and share your results with your provider.?? Be sure to mention any score of 10 or more.?? Many women, and even some partners, may experience the ???baby blues?? .?? This is a state of feeling overwhelmed and weepy.?? Discomfort from childbirth, hormonal changes, exhaustion, changes to your body and lifestyle are a few of the things that contribute to the highs and lows new parents go through.?? Don???t be afraid to ask your partner or family and friends for some help at home so you can get some rest and a few minutes to yourself.?? The blues will quickly pass. Personal Safety: Every person has the right to feel safe at home and live free from physical or emotional harm.?? Ifyou have suffered mental or physical abuse at home, you are not alone.?? There is help.?? Please call [facility] or the [facility] at [phone]. CARE Bathing: Give your baby a sponge bath until the cord falls off in about 1-3 weeks.?? It is not necessary to bathe your baby every day, usually every few days is sufficient. ??Keep the cord area dry.?? Some baby girls will have a small bloody vaginal discharge. No need to worry as this is normal. It is not necessary to use lotions on the baby???s skin.?? Powders and oils are not recommended.?? Babies often get rash on their skin which comes and goes quickly and does not require any special care.?? Diaper rash can be treated with a zinc oxide preparation such as Desitin or Balmex diaper cream. Circumcision Care: Your nurse will teach you how to care for your baby???s circumcision depending on the type of circumcision your doctor or clam shucker performed.?? Most circumcisions require A&& ointment for about 4-5 days.?? Be generous with the amount of A&& used as this will prevent the diaper from sticking when you go to change it. If a plastibell circumcision was done, the plastic ring around the penis will fall off in a week orso. Diapers: After the 1st??few days, the baby will start wetting more often.?? A breast fed baby will wet about6-8 times a day once mom???s milk comes in ??? usually day 4 or 5.?? This is a good sign that the baby is getting plenty to eat.?? You may notice an orangey-pink stain in the diaper which is normal for the first few days. The baby???s first bowel movements are sticky, black and tarry.?? As the baby starts to feed more often over the next couple of days, the stool will change to a seedy yellowish green color and eventually a loose mustard like stool for a breast fed baby and a more formed yellow stool for a bottle fed baby. your Baby: ??Congratulations on deciding to breastfeed your baby! You are providing your baby with the most nourishing food source on the planet, your breast milk.?? Cues such as rooting, suckling, licking and fussing may be telling you that your baby is ready to eat ??? and it is time to offer your breasts. The first weeks following the are a time for you and your baby to learn.?? The baby may be sleepy the first day after with 8 to 12 attempts ??? including 2 to 4 good feedings.?? Over the next couple of days the baby will become more wakeful, feed 8 to 12 times a day and have more wet and poopy diapers.?? Cluster feeding, especially during the evening/night time, is normal. ?? Listen for swallowing sounds and watch the baby as they become more relaxed at the breast ??? both good signs that the baby is getting a good amount of milk.?? Refrain from smoking or eating edible marijuana while you are . Even though marijuana is legal in the state of [place],??it is harmful for your baby.??It stays in breast milk for along period of time and THC can be found in the baby's urine for up to 3 weeks. Second hand smoke can also increase the risk??of Sudden Infant Syndrome / SIDS. ?? Nursing is wonderful but many moms and babies have some degree of difficulty with at first. Don???t give up!?? There are many resources available to help you overcome these temporary problems. Your printing film stripper wants to hear from you if you are having difficulties and can offermany helpful suggestions.?? Some offices have consultants on staff. [facility]???s Consultation Service is available 7 days a week, 8am to 3pm at [phone].?? Press 1 to schedule an outpatient appointment.?? Press 3 to leave a message for the wound care center consultant, a fundraising consultant will return your call that day or the next if you call after 3pm. Support Groups ??? [facility] offers free gatherings for moms and babies weekly.?? All groups meet at the [facility]???[facility] 2nd??floor, typically in the [facility] Conference Room, Wednesday???s 1 to 2 pm.?? [employer] is a worldwide organization with local community support, mother to mother support.?? Information can be found at https://www.lllusa.org Formula Feeding your Baby: Formula fed babies should eat every 3 to 4 hours.?? Look for cues that your baby is ready ??? such as rooting and sucking, licking and fussing.?? At the baby???s stomach is small and may take 10-15ml of formula.?? Over the next few days the baby will become more wakeful and feed more frequently, gradually increasing the amounts of formula taken at a feeding.?? Your printing film stripper will provideinstructions on how to increase the amount.?? Refer to packaging for formula preparation directions, depending on the type of formula you purchase ??? powder, concentrate or ready to feed. Infant Safety: ALWAYS REMEMBER - BACK TO SLEEP! Babies sleep safest on their backs.?? Every sleep.?? Every time.?? Every nap. Babies need a firm sleep surface with a tight fitting bottom sheet.?? NO loose bedding.?? NO pillows.?? NO bumper pads or rolls.?? NO heavy or fluffy blankets. NO stuffed toys. It is not safe for your baby to sleep in your bed, in a chair, or on a sofa.?? Your baby should notsleep with you or anyone else. Car Seat: Always place your baby in a rear facing car seat in the backseat of the car. Car seat inserts that come with the car seat can be used as they are crash tested with the seat.?? You should not buy additional inserts.?? Dress the baby in a weather appropriate outfit.?? Avoid bulky clothing such as snowsuits or jackets as the baby may squirm in the seat, loosening the shoulder straps and come out of the top of the harness if you need to brake hard or are in an accident.?? Once the baby issecured in the seat you can cover your little one with a blanket if needed.?? If your baby was bornprematurely, follow the directions given to you.?? If you have not already done so, check to make sure your car seat is installed correctly. Check with your local Fire and Police Department to see if they offer car seat inspections at a location close to you. Babies Can Move: ?? Never leave your baby unattended on any surface, raised or flat, or while bathing.?? They can squirm, fall or hurt themselves.?? Always fasten the safety belt when using an infantseat or swing ??? as they may lean forward and fall. Good Handwashing is the number one way you can protect the baby from too?? many germs and prevent infection.?? When family and friends visit ask that they wash their hands before holding your baby.??Also avoid crowds the first month of your baby???s life to protect from colds and flus. Shaking a baby out of frustration can cause severe and lasting damage, even to a baby.?? If you feel you are becoming angry or overwhelmed, place the baby in a safe place and walk away.?? Call a friend or family member.?? If they are not able to offer immediate help call the Parental Stress Hotline at?? , an anonymous 15/03 source of help. Warning Signs to notify your printing film stripper of: Most babies develop a small amount of jaundice (a yellowish skin color) in the face and upper chest, by about 3 days of age.?? If the yellow color extends below the baby???s belly or if the baby is very sleepy and not feeding well, call your printing film stripper. A rectal temperature of 100.4F as it could be a sign of infection. Projectile vomiting that continues with each feeding could indicate reflux or a problem with the formula. Extreme sleepiness or very fussy. Cold symptoms with nasal stuffiness, especially if the baby is having difficulty feeding. Constipation with hard stools. Blue or dusky color, call 911. If Your Baby Needs to Remain in the Hospital: Please leave your baby???s ID bracelets on if your baby needs to remain in the hospital after you are discharged home. The phone number to NICU is [phone]. The phone number to [facility] is [phone]. The phone number to [place] [facility] is [phone]. moms should pump every 2-3 hours or 8-12 times in 24 hours.?? If unable to place the baby to breast, if you are having difficulty getting the baby to latch on, or if the baby remains inthe hospital after you are discharged ??? bring the pumped milk to the hospital, labeled with name,date and time.?? Carry it in a small cooler or diaper bag with an ice pack and bring it the next time you visit your baby.?? Consultation Services is available if you need to rent or purchase a pump or products.?? Call and leave a message at [phone] ??? press 3 and a fundraising consultant will return your call that day or the next if you call after 3pm. ?? This information has been modified by your health care provider with permission from the publisher. ?? Patient Care team information Care Team Personnel Name: Ellie HOLLAND , Leydi Miller Position: Reference Physician Member Role: PCP Address: Address: [address] [place], [place] [address] Name: Amaris Tee RN Position: S OB RN Member Role: OB RN Name: Elsa Cerda RN Position: S OB RN Member Role: Patient Care Provider Care Team Related Persons Name: KEZIA RICHTER Address: home [address] [place] [address] Name: JOSE MCCOY Address: [address] Address: [address]"
--- OUTSIDE RECORDS SUMMARY | 2024-06-19 19:21 | XMS_ITS | Continuity of Care Document ---
Author Organization [facility] ter Address [address] [place] [address]- Care Team Providers Care Leaflet Distributor Name Role Phone Not on Staff, PCP Primary Care Physician Unavail able Encounter [facility] Date(s): 12/22/21 - 12/22/[address] [address]- Discharge Disposition: Discharge Spec Fac/Child or Cancer Ctr Attending Physician: Castro Santos MD Admitting Physician: Castro Santos MD Referring Physician: Not on Staff, Referring MD Allergies, Adverse Reactions, Alerts No Known [...] 12/29/21 22:47:00 EDT, 12/22/21 22:47:00 EDT, Capsule, [facility], Partial fill upon patient request if the prescription is for a schedule II o... Start Date: 12/22/21 Stop Date: 12/29/21 Status: Ordered Multivitamins with Vitamin B Complex, Vitamin C, Minerals and L- Methylfolate oral capsule 1 capsule, By Mouth, Daily, # 30 capsule, 0 Refills, Maintenance, 12/15/21 10:50:00 EDT, Capsule, [facility], Partial fill upon patient request if the prescription is for a schedule II opioid drug., 1 capsule By Mouth Daily, 170, c... Start Date: 12/15/21 Status: Ordered Unisom 25 mg oral tablet 1 tablet = 25 mg, By Mouth, Daily at bedtime, PRN for sleep, # 16 tablet, 0 Refills, Acute 01/14/2210:53:00 EDT, 12/15/21 10:52:00 EDT, Tablet, [facility], Partial fill upon patient request if the prescription is for a schedule II... Start Date: 12/15/21 Stop Date: 01/14/22 Status: Ordered Vitamin B6 25 mg oral tablet 1 tablet = 25 mg, By Mouth, 3 times a day, # 30 tablet, 0 Refills, Acute 01/14/22 10:53:00 EDT, 12/15/21 10:51:00 EDT, [facility], Partial fill upon patient request [...]
--- OUTSIDE RECORDS SUMMARY | 2024-06-19 19:21 | XMS_ITS | Continuity of Care Document ---
Author Organization [facility] Address [address] [place] [address]- Care Team Providers Care Prestressed Concrete Laborer Name Role Phone Ellie HOLLAND, Leydi Miller Primary Care Physician Encounter [facility] [place] Date(s): 06/08/22 - 07/08/22 [facility] and [facility] [address] [address]- Allergies, Adverse Reactions, Alerts No Known Allergies [...] 01/14/22 18:19:00 EDT, Route to Pharmacy Electronically, [facility], Partial fill upon patient request if the prescription is for a schedule I... Start Date: 01/14/22 Status: Ordered docusate sodium 100 mg oral tablet 1 tablet = 100 mg, By Mouth, 2 times a day, PRN for constipation, # 60 tablet, 0 Refills, Maintenance, 03/12/22 19:31:00 EDT, Tablet, [facility], Partial fill upon patient requestif the prescription is for a schedule II opioid rob... Start Date: 03/12/22 Status: Ordered ferrous sulfate 325 mg oral tablet 1 tablet = 325 mg, By Mouth, Every other day, # 45 tablet, 3 Refills, Maintenance, 08/14/22 9:46:00EST, [facility], Partial fill upon patient request if the prescription is for aschedule II opioid drug., 170, cm, 04/08/22 15:00:0... Start Date: 08/14/22 Status: Ordered ferrous sulfate 325 mg oral tablet 1 tablet = 325 mg, By Mouth, Every other day, for 30 days, # 15 tablet, 6 Refills, Hard Stop 08/14/22 9:46:00 EST, 01/16/22 9:46:00 EDT, [facility], Partial fill upon patient request if the prescription is for a schedule II opioid... Start Date: 01/16/22 Stop Date: 08/14/22 Status: Ordered Multivitamins with Vitamin B Complex, Vitamin C, Minerals and L- Methylfolate oral capsule 1 capsule, By Mouth, Daily, # 30 capsule, 10 Refills, Maintenance, 03/12/22 11:52:00 EDT, Capsule, [facility], Partial fill upon patient request [...] Physician Member Role: PCP Address: Address: [address] [place] [address]- Care Team Related Persons Name: KEZIA RICHTER Address: home [address] [place] [address]
--- OUTSIDE RECORDS SUMMARY | 2024-06-19 19:21 | XMS_ITS | Continuity of Care Document ---
Author Organization [facility] Address [address] [place] [address]- Care Team Providers Care Machine Bunch Maker Name Role Phone Ellie HOLLAND, Leydi iMller Primary Care Physician Encounter [facility] [place] Date(s): 07/23/22 - 08/22/22 [facility] and [facility] [address] [address]- Allergies, Adverse Reactions, Alerts No Known Allergies [...] 09/30/22 10:13:00 EST, 08/05/22 10:13:00 EST, Capsule, [facility], 170, cm, 08/05/22 9:59:... Start Date: 08/05/22 Stop Date: 09/30/22 Status: Ordered docusate sodium 100 mg oral capsule 100 mg, 1, capsule, By Mouth, 2 times a day, PRN, with plenty of water, # 60 capsule, Refills 2, Tot. Refills 2, Maintenance, for constipation, 08/05/22 10:10:00 EST, Route to Pharmacy Electronically, [facility], 170, cm, 08/05/22... Start Date: 08/05/22 Stop Date: 11/03/22 Status: Ordered ferrous sulfate 325 mg oral tablet 1 tablet = 325 mg, By Mouth, Every other day, # 45 tablet, 3 Refills, Maintenance, 08/14/22 9:46:00EST, [facility], Partial fill upon patient request [...] 08/05/22 10:11:00 EST, Route to Pharmacy Electronically, [facility]... Start Date: 08/05/22 Stop Date: 12/03/22 Status: Ordered Multivitamins with Vitamin B Complex, Vitamin C, Minerals and L- Methylfolate oral capsule 1 capsule, By Mouth, Daily, # 30 capsule, 10 Refills, Maintenance, 03/12/22 11:52:00 EDT, Capsule, [facility], Partial fill upon patient request [...] Physician Member Role: PCP Address: Address: [address] [place] [address]- Care Team Related Persons Name: KEZIA RICHTER Address: [address] [address] Name: MARIA FERNANDA SCOTT Address: [address] Address: [address] [address] [place]
--- OUTSIDE RECORDS SUMMARY | 2024-06-19 19:22 | XMS_ITS | Continuity of Care Document ---
Author Organization [facility] Address Unknown Care Team Providers Care Plastic Boat Patcher Name Role Phone Ellie HOLLAND, Leydi Miller Primary Care Physician Encounter [facility] [place] Date(s): 02/19/22 - 03/21/22 [facility] and [facility] Allergies, Adverse Reactions, Alerts No Known Allergies Immunizations Given and Recorded Vaccine Date Status Refusal Reason SARS-CoV-2 (COVID-19) mRNA BNT-162b2 vac 05/05/21 Recorded SARS-CoV-2 (COVID-19) mRNA BNT-162b2 vac 01/28/21 Recorded Medications aspirin 81 mg oral delayed release tablet 162 mg, 2, tablet, By Mouth, Daily, # 90 tablet, Refills 2, Tot. Refills 2, Maintenance, 01/14/22 18:19:00 EDT, Route to Pharmacy Electronically, [facility], Partial fill upon patient request if the prescription is for a schedule I... Start Date: 01/14/22 Status: Ordered docusate sodium 100 mg oral tablet 1 tablet = 100 mg, By Mouth, 2 times a day, PRN for constipation, # 60 tablet, 0 Refills, Maintenance, 03/12/22 19:31:00 EDT, Tablet, [facility], Partial fill upon patient requestif the prescription is for a schedule II opioid rob... Start Date: 03/12/22 Status: Ordered ferrous sulfate 325 mg oral tablet 1 tablet = 325 mg, By Mouth, Every other day, # 15 tablet, 6 Refills, Maintenance, 01/16/22 9:46:00EDT, [facility], Partial fill upon patient request if the prescription is for aschedule II opioid drug., 170, cm, 01/14/22 14:56:0... Start Date: 01/16/22 Stop Date: 08/14/22 Status: Ordered Multivitamins with Vitamin B Complex, Vitamin C, Minerals and L- Methylfolate oral capsule 1 capsule, By Mouth, Daily, # 30 capsule, 10 Refills, Maintenance, 03/12/22 11:52:00 EDT, Capsule, [facility], Partial fill upon patient request [...]
--- OUTSIDE RECORDS SUMMARY | 2024-06-19 19:22 | XMS_ITS | Continuity of Care Document ---
Author Organization [facility] Address [address] [place] [address]- Care Team Providers Care Placement Coordinator Name Role Phone Ellie HOLLAND, Leydi Miller Primary Care Physician Encounter [facility] [place] Date(s): 08/10/22 - 09/24/[address] [address]- Attending Physician: Not on Staff, Attending MD Referring Physician: Wes Kim CNM Allergies, [...] 09/30/22 10:13:00 EST, 08/05/22 10:13:00 EST, Capsule, [facility], 170, cm, 08/05/22 9:59:... Start Date: 08/05/22 Stop Date: 09/30/22 Status: Ordered docusate sodium 100 mg oral capsule 100 mg, 1, capsule, By Mouth, 2 times a day, PRN, with plenty of water, # 60 capsule, Refills 2, Tot. Refills 2, Maintenance, for constipation, 08/05/22 10:10:00 EST, Route to Pharmacy Electronically, [facility], 170, cm, 08/05/22... Start Date: 08/05/22 Stop Date: 11/03/22 Status: Ordered ferrous sulfate 325 mg oral tablet 1 tablet = 325 mg, By Mouth, Every other day, # 45 tablet, 3 Refills, Maintenance, 08/14/22 9:46:00EST, [facility], Partial fill upon patient request [...] 08/05/22 10:11:00 EST, Route to Pharmacy Electronically, [facility]... Start Date: 08/05/22 Stop Date: 12/03/22 Status: Ordered Multivitamins with Vitamin B Complex, Vitamin C, Minerals and L- Methylfolate oral capsule 1 capsule, By Mouth, Daily, # 30 capsule, 10 Refills, Maintenance, 03/12/22 11:52:00 EDT, Capsule, [facility], Partial fill upon patient request [...] Physician Member Role: PCP Address: Address: [address] [place] [address]- Care Team Related Persons Name: KEZIA RICHTER Address: [address] [address] Name: MARIA FERNANDA SCOTT Address: [address] Address: [address]
--- OUTSIDE RECORDS SUMMARY | 2024-06-19 19:22 | XMS_ITS | Continuity of Care Document ---
Author [facility] Address [address] [place] [address]- Care Team Providers Care Pharmacy District Manager Name Role Phone Ellie HOLLAND, Leydi Miller Primary Care Physician Encounter [facility] [place] Date(s): 09/14/22 - 10/14/22 [facility] and [address] [address] Attending Physician: Mike Smalls Admitting Physician: AdmMike [...] 08/05/22 10:10:00 EST, Route to Pharmacy Electronically, [facility], 170, cm, 08/05/22... Start Date: 08/05/22 Stop Date: 11/03/22 Status: Ordered ferrous sulfate 325 mg oral tablet 1 tablet = 325 mg, By Mouth, Every other day, # 45 tablet, 3 Refills, Maintenance, 08/14/22 9:46:00EST, [facility], Partial fill upon patient [...] 10 Refills, Maintenance, 03/12/22 11:52:00 EDT, Capsule, [facility], Partial fill upon patient [...] Physician Member Role: PCP Address: Address: [address] [place], [place] [address] Care Team Related Persons Name: KEZIA RICHTER Address: home [address] [place] [id number] Name: MARIA FERNANDA SCOTT Address: Address: [address]
== END 2024-06-19 19:24 | disposition home or self-care (01) ==
PROVIDERS: Physician Assistant; Emergency Provider Internal Medicine
DX: K80.20 Calculus of gallbladder without cholecystitis without obstruction (principal); R10.11 Right upper quadrant pain
CPT/HCPCS: 36415; 76705; 80048; 80076; 81003; 81025; 83690; 83735; 85025; 99284

== ENCOUNTER 2024-07-19 13:23 | Outpatient (AMB) | payer MEDICAID, SELFPAY ==
[2024-07-19 13:27] VITALS: BP 104/56; PULSE 80; BMI 16.9
--- NOTE | 2024-07-19 13:27 | A.OFFVIS_ITS ---
Vital Signs 07/19/24 13:27 Height 5 ft 7 in Weight 108 lb BMI 16.9 BP 104/56 L Blood Pressure Location Rt brachial Position Sitting Pulse 80 Intake Visit Reasons: cholelithiasis Intake Note: This patient [place] [facility] [place] for [place]stones. Pt c/o; reports no complaints. 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 She was in the ER last month because of right upper quadrant pain. She had been told she had gallstones based on ultrasound imaging before. She says that she has had this periodic right upper quadrant pain for the past 2 years now after she was with her son. She says that for the past few months, she has had nausea with meals and right upper quadrant pain oral intake and has been losing about 30 lb of weight for the past 6-7 months. She says she is healthy otherwise and denies significant medical problems. [facility] Medical History Gallstones No known health problems Surgical History No pertinent past surgical history Social History Alcohol intake: never Patient Tobacco Use Status: Never used Tobacco Review of Systems Const Denies chills, Denies fever(s) and Reports weight loss Card Denies chest pain, Denies dyspnea and Denies dyspnea on exertion Resp Denies cough, Denies dyspnea and Denies dyspnea on exertion GI Denies hematochezia and Denies change in bowel habits Denies hematuria Musc Denies back pain and Denies limited range of motion Neuro Denies focal weakness and Denies convulsions Psych Denies depression and Denies mood swings Physical Exam Vital Signs: Last Vital Signs Pulse 80 07/19/24 13:27 BP 104/56 L 07/19/24 13:27 BMI result Body Mass Index 16.9 Const General: comfortable and no acute distress Orientation/consciousness: patient oriented x3 Neck Neck: Yes no lymphadenopathy Resp Auscultation: clear to auscultation bilaterally Cardio Rhythm: regular rhythm GI Palpation (GI): Soft to palpation, nontender and no guarding Neuro General: patient oriented x3 Assessment & Plan Assessment & Plan (1) Gallstones: Code(s): K80.20 - Calculus of gallbladder without cholecystitis without obstruction Category: Medical Plan: She has had frequent episodes of right upper quadrant pain especially with meals. She says because of the she has been losing weight she has been afraid to eat. She does have gallstones on an ultrasound although this is not officially read yet. I therefore explained to her the option of proceeding with cholecystectomy because of symptomatic gallstones. I explained the technique of laparoscopic cholecystectomy and possible open cholecystectomy. I reviewed the risks including but not limited to bleeding, infections, injury to other organs including bowel, liver and bile ducts, blood clots, pneumonia, bile leak, retained stones, as well as the benefits and alternatives She says that she wants to proceed. Orders: Orders CT abdomen pelvis w IV con 07/19/24 K80.20 - Calculus of gallbladder without cholecystitis without obstruction Medications: Refilled ondansetron 4 mg PO Q8H PRN 7 tabs 0RF nausea and vomiting Coding Level of Care Code New Pt Level 3 (915[address]) Diagnoses Gallstones K80.20
== END 2024-07-19 13:34 | disposition home or self-care (01) ==
PROVIDERS: PCP Student in an Organized Health Care Education/Training Program; Visit Provider Surgery
DX: K80.20 Calculus of gallbladder without cholecystitis without obstruction (principal)
CPT/HCPCS: 99204

== ENCOUNTER → 2024-07-19 13:23 | Outpatient (BNVA) | payer MEDICAID, SELFPAY | PROVIDERS: PCP Student in an Organized Health Care Education/Training Program; Visit Provider Surgery | DX: K80.20 Calculus of gallbladder without cholecystitis without obstruction (principal) | CPT/HCPCS: 99202 ==

== ENCOUNTER 2024-08-11 16:50 | Emergency (ER) | payer MEDICAID, SELFPAY ==
[2024-08-11 16:56] VITALS: BP 115/60; PULSE 68; O2SAT 100
[2024-08-11 17:12] VITALS: BP 113/69; PULSE 67; RESP 20; TEMP 36.1; O2SAT 100; BMI 16.9
--- NOTE | 2024-08-11 17:12 | ED.GENADULT ---
HPI - General Adult General Chief complaint: Abdominal Pain Stated complaint: ?GALLSTONES PER EMS Related Data Previous Rx's ?Medication ?Instructions ?Recorded levofloxacin 500 mg tablet 500 mg PO DAILY #5 tabs 07/07/20 oxycodone 5 mg tablet 5 mg PO Q8H PRN pain #5 tabs 07/07/20 tamsulosin 0.4 mg capsule (Flomax) 0.4 mg PO DAILY #14 caps 07/07/20 amoxicillin 875 mg-potassium 1 tab PO Q12H 7 days #14 tabs 04/06/21 clavulanate 125 mg tablet (Augmentin) pantoprazole 40 mg tablet,delayed 40 mg PO DAILY #14 tabs 10/26/22 release (Protonix) ondansetron 4 mg disintegrating 4 mg PO Q8H PRN nausea and 07/19/24 tablet vomiting #7 tabs Allergies Allergy/AdvReac Type Severity Reaction Status Date / Time No Known Allergies Allergy Verified 08/11/24 17:14 [No Known Allergies*] [facility] Past Medical History Medical History Gallstones No known health problems Surgical History No pertinent past surgical history Social History Social History Alcohol intake: never Patient Tobacco Use Status: Never used Tobacco Advance Directives: No Advance Directives Information Provided: No Physical Exam ED Vital Signs: Vital Signs - 24 hr 08/11/24 17:12 Temperature 96.9 F Pulse Rate 67 Respiratory Rate 20 Blood Pressure 113/69 Pulse Oximetry 100 Oxygen Delivery Method Room Air BMI result Body Mass Index 16.9 Course Course Course Narrative: This is a rapid medical exam performed by Guilherme Shaw NP: Additional HPI, ROS, PE not included below will be deferred to primary provider. Patient is a 24-year-old female presenting to the ED with complaint of RUQ abd pain since this morning. Known gallstones. Nausea which has improved since receiving zofran from EMS. Plan: labs, U/S Medical Decision Making Lab Data 08/11/24 17:25 08/11/24 17:25 Labs: Lab Results 08/11/24 Range/Units 17:25 WBC 11.8 H (4.8-10.8) X10*3/uL RBC 4.12 L (4.20-5.50) X10*6/uL Hgb 12.0 (12.0-16.0) g/dl Hct 34.7 L (37.0-47.0) % MCV 84.2 (80.0-98.0) fL MCH 29.1 (27.0-33.0) pg MCHC 34.6 (31.0-35.0) g/dl RDW 13.0 (11.0-16.0) % Plt Count 281 (160-400) X10*3/uL MPV 9.8 (9.4-12.3) fL Immature Gran % (Auto) 0.3 (0.0-0.4) % Neut % (Auto) 76.5 H (45-73) % Lymph % (Auto) 15.4 L (20-40) % [place] % (Auto) 6.5 (2-11) % Eos % (Auto) 0.8 (0-4) % Baso % (Auto) 0.5 (0-2) % Lymph # (Auto) 1.8 (1.2-4.9) X10*3/uL [place] # (Auto) 0.8 (0.1-1.2) X10*3/uL Eos # (Auto) 0.1 (0.0-0.4) X10*3/uL Baso # (Auto) 0.1 (0.0-0.2) X10*3/uL Abs Immat Gran (auto) 0.03 (0.00-0.03) X10*3/uL Absolute Neuts (auto) 9.0 H (2.0-8.3) x10*3/uL Absolute Nucleated RBC 0.000 (0.0-0.012) X10*3/uL Nucleated RBC % (auto) 0.0 (0.0-0.2) /100WBC Sodium 143 (135-145) mmol/L Potassium 4.0 (3.3-5.1) mmol/L Chloride 112 H (96-108) mmol/L Carbon Dioxide 24 (22-29) mmol/L Anion Gap 11 L (12-20) BUN 14 (9-16) mg/dL Creatinine 0.77 (0.5-1.4) mg/dL Estim Creat Clear Calc 88.6 Estimated GFR > 60 Random Glucose 134 H (60-115) mg/dL Calcium 9.1 (8.4-10.2) mg/dL Total Bilirubin 0.9 (0.0-1.0) mg/dL AST 49 H (5-31) U/L ALT 30 (0-31) U/L Alkaline Phosphatase 55 (39-117) U/L Total Protein 7.3 (6.5-8.0) g/dL Albumin 4.4 (3.5-5.0) g/dL Lipase 12 (8-78) U/L Beta HCG, Quant < 2 mIU/mL Discharge Plan Discharge Clinical Impression: Diagnosis unknown Patient Disposition: Left W/O Completing Treatment Prescriptions: No Action tamsulosin [Flomax] 0.4 mg capsule 0.4 mg PO DAILY Qty: 14 0RF Rx Instructions: take 1 tablet daily for 14 days. oxycodone 5 mg tablet 5 mg PO Q8H PRN (Reason: pain) Qty: 5 0RF levofloxacin 500 mg tablet 500 mg PO DAILY Qty: 5 0RF amoxicillin-pot clavulanate [Augmentin] 875-125 mg tablet 1 tab PO Q12H 7 Days Qty: 14 0RF pantoprazole [Protonix] 40 mg tablet,delayed release (DR/EC) 40 mg PO DAILY Qty: 14 0RF ondansetron 4 mg tablet,disintegrating 4 mg PO Q8H PRN (Reason: nausea and vomiting) Qty: 7 0RF Discharge Date/Time: 08/11/24 21:01
[2024-08-11 17:29] LABS: MANUAL DIFF FLAG NO
[2024-08-11 17:30] LABS: Basophils Absolute Auto 0.1 X10*3/uL (0.0-0.2); Basophils Percent Auto 0.5 % (0-2); Eosinophils Absolute Auto 0.1 X10*3/uL (0.0-0.4); Eosinophils Percent Auto 0.8 % (0-4); Hematocrit 34.7 % (37.0-47.0); Imm Gran Abs Auto 0.03 X10*3/uL (0.00-0.03); Imm Gran Pct Auto 0.3 % (0.0-0.4); Lymphocytes Absolute Auto 1.8 X10*3/uL (1.2-4.9); Lymphocytes Percent Auto 15.4 % (20-40); Mean Corpuscular HGB Conc 34.6 g/dl (31.0-35.0); Mean Corpuscular Hemoglobin 29.1 pg (27.0-33.0); Mean Corpuscular Volume 84.2 fL (80.0-98.0); Mean Platelet Volume 9.8 fL (9.4-12.3); Monocytes Absolute Auto 0.8 X10*3/uL (0.1-1.2); Monocytes Percent Auto 6.5 % (2-11); Neutrophils Percent Auto 76.5 % (45-73); Platelet Count 281 X10*3/uL (160-400); Red Blood Count 4.12 X10*6/uL (4.20-5.50); White Blood Count 11.8 X10*3/uL (4.8-10.8)
[2024-08-11 19:39] LABS: Alanine Aminotransferase 30 U/L (0-31); Albumin Level 4.4 g/dL (3.5-5.0); Alkaline Phosphatase 55 U/L (39-117); Anion Gap 11 (12-20); Aspartate Amino Transferase 49 U/L (5-31); Bilirubin Total 0.9 mg/dL (0.0-1.0); Blood Urea Nitrogen 14 mg/dL (9-16); Calcium 9.1 mg/dL (8.4-10.2); Carbon Dioxide 24 mmol/L (22-29); Chloride 112 mmol/L (96-108); Creatinine Clr Calc Pharmacy 88.6; Estimated Glomerular Filt Rate > 60; Glucose Random 134 mg/dL (60-115); Lipase 12 U/L (8-78); Sodium 143 mmol/L (135-145); Total Protein 7.3 g/dL (6.5-8.0)
[2024-08-11 19:46] LABS: HCG Quantitative < 2 mIU/mL
== END 2024-08-11 21:01 | disposition left against medical advice (07) ==
PROVIDERS: Registered Nurse Emergency; Emergency Provider Emergency Medicine
DX: R10.11 Right upper quadrant pain (principal); R11.0 Nausea
CPT/HCPCS: 36415; 80053; 83690; 84702; 85025; 99281; 99283

== ENCOUNTER 2024-08-23 07:11 | Emergency (ER) | payer MEDICAID, SELFPAY ==
--- NOTE | ~2024-08-23 | US_ITS ---
CLINICAL HISTORY: RUQ pain, hx of gallstones US abdomen limited Comparison: None Findings: The v pancreas is not imaged. The aorta and inferior vena cava are not imaged. The liver is normal in size and echotexture. There is no intrahepatic bile duct dilatation. The common duct is 4 mm in diameter. The gallbladder demonstrates gallstones, gallbladder wall thickening measuring up to 6 mm and trace pericholecystic fluid. There is reportedly a positive sonographic Adler's. The main portal vein is antegrade. The right kidney is not imaged. No ascites. IMPRESSION: Gallstones are present. There is mild gallbladder wall thickening and trace pericholecystic fluid. There is reportedly a positive sonographic Adler's. Findings may reflect early acute calculus cholecystitis. This document has been electronically signed by: Pb Larsen MD on 08/23/2024 09:43:46
[2024-08-23 07:14] VITALS: BP 108/64; PULSE 77; O2SAT 99
[2024-08-23 07:26] VITALS: BP 108/71; PULSE 80; RESP 16; TEMP 36.6; O2SAT 98; BMI 16.9
[2024-08-23 07:30] VITALS: BP 108/71; PULSE 80; RESP 16; TEMP 36.6; O2SAT 98
[2024-08-23 08:08] LABS: MANUAL DIFF FLAG NO
[2024-08-23 08:09] LABS: Basophils Percent Auto 0.4 % (0-2); Eosinophils Percent Auto 0.4 % (0-4); Hematocrit 30.7 % (37.0-47.0); Hemoglobin 10.7 g/dl (12.0-16.0); Imm Gran Abs Auto 0.02 X10*3/uL (0.00-0.03); Imm Gran Pct Auto 0.3 % (0.0-0.4); Lymphocytes Absolute Auto 1.5 X10*3/uL (1.2-4.9); Mean Corpuscular HGB Conc 34.9 g/dl (31.0-35.0); Mean Corpuscular Hemoglobin 29.2 pg (27.0-33.0); Mean Corpuscular Volume 83.7 fL (80.0-98.0); Mean Platelet Volume 9.8 fL (9.4-12.3); Monocytes Absolute Auto 0.7 X10*3/uL (0.1-1.2); Neutrophils Absolute Auto 5.3 x10*3/uL (2.0-8.3); Neutrophils Percent Auto 69.9 % (45-73); Platelet Count 254 X10*3/uL (160-400); Red Blood Count 3.67 X10*6/uL (4.20-5.50); Red Cell Distribution Width 12.6 % (11.0-16.0); White Blood Count 7.6 X10*3/uL (4.8-10.8)
[2024-08-23 08:11] LABS: Appearance Urine Cloudy; Color Urine Yellow; Glucose Urine UA Negative (Negative); Leukocyte Esterase Urine Trace (Negative); Nitrite Urine Negative (Negative); PH 7.5 (5.0-9.0); Specific Gravity - Urine 1.025 (1.005-1.025); UMIC TRIGGER UACC YES; Urine Blood Negative (Negative); Urine Ketones 80 mg/dL (Negative); Urine Protein Trace mg/dL (Neg-Trace)
[2024-08-23 08:13] LABS: Bacteria Urine None Seen (None Seen); Hyaline Casts Urine 0-2 /LPF (0-2); RBC Urine 0-2 /HPF (0-2); WBC Urine 0-5 /HPF (0-5)
--- NOTE | 2024-08-23 08:20 | ED_ITS ---
HPI - General Adult General Chief complaint: Abdominal Pain Stated complaint: R ABD PAIN NAUSEA VOMITING Time Seen by Provider: 08/23/24 08:18 Source: patient Mode of arrival: ambulatory Limitations: no limitations History of Present Illness ED Provider: Francie Benoit PA-C HPI narrative: Patient is a 24 year old assigned female at with a history of gallstones presenting to the emergency department today with RUQ abdominal pain, nausea, and vomiting. Patient states that she is currently scheduled to have her gallbladder removed by Dr. Cobb later this month and over the last 3 hours she developed abdominal pain, nausea, and vomiting. Patient denies any dizziness, lightheadedness, fever, chills, blurry vision, double vision, loss of vision, chest pain, difficulty breathing, shortness of breath, back pain, night sweats, pain with urination, increased urinary frequency, increased urinary urgency, blood in her urine or stool, syncope or a near syncopal episode, recent trauma or falls, bowel incontinence, bladder incontinence, or any other complaints at this time. Onset (ago): hour(s) Location: abdomen Relieving factors: none Exacerbating factors: none Associated symptoms: nausea/vomiting Treatments prior to arrival: none Related Data Previous Rx's ?Medication ?Instructions ?Recorded levofloxacin 500 mg tablet 500 mg PO DAILY #5 tabs 07/07/20 oxycodone 5 mg tablet 5 mg PO Q8H PRN pain #5 tabs 07/07/20 tamsulosin 0.4 mg capsule (Flomax) 0.4 mg PO DAILY #14 caps 07/07/20 amoxicillin 875 mg-potassium 1 tab PO Q12H 7 days #14 tabs 04/06/21 clavulanate 125 mg tablet (Augmentin) pantoprazole 40 mg tablet,delayed 40 mg PO DAILY #14 tabs 10/26/22 release (Protonix) ondansetron 4 mg disintegrating 4 mg PO Q8H PRN nausea and 07/19/24 tablet vomiting #7 tabs Allergies Allergy/AdvReac Type Severity Reaction Status Date / Time No Known Allergies Allergy Verified 08/23/24 07:27 [No Known Allergies*] Review of Systems 2 Constitutional: Constitutional: Reports no additional constitutional complaints, Denies chills, Denies fever(s) and Denies night sweats Eyes: Eyes: Reports no additional eye complaints, Denies blurry vision, Denies change in vision, Denies diplopia, Denies eye discharge, Denies loss of vision and Denies eye pain ENT: Denies dizziness Cardiovascular: Cardiovascular: Reports no additional cardiovascular complaints, Denies chest pain, Denies lightheadedness, Denies Loss of Consciousness and Denies dyspnea Respiratory: Respiratory: Reports no additional respiratory complaints and Denies dyspnea Gastrointestinal: Gastrointestinal: Reports no additional gastrointestinal complaints, Reports abdominal pain, Denies melena, Denies hematochezia, Denies change in bowel habits, Denies change in stool character, Reports nausea and Reports vomiting Genitourinary: Genitourinary: Denies hematuria, Denies urinary frequency, Denies dysuria, Denies urinary incontinence, Denies urinary hesitancy and Denies urinary urgency Musculoskeletal: Musculoskeletal: Reports no additional musculoskeletal complaints, Denies numbness and Denies tingling Neurologic: Denies dizziness, Denies loss of vision, Denies numbness and Denies tingling Psychiatric: Psychiatric: Reports no additional psychiatric complaints Endocrine: Endocrine: Reports no additional endocrine complaints Hematologic/Lymphatic: Hematologic/Lymphatic: Reports no additional hematologic/lymphatic complaints Allergic/Immunologic: Allergic/Immunologic: Reports no additional allergic/immunologic complaints PMFSH Past Medical History Attestation statement: The following information was validated with the patient. Source: old records reviewed and nursing notes reviewed Medical History Gallstones No known health problems Surgical History No pertinent past surgical history Social History Social History Alcohol intake: never Patient Tobacco Use Status: Never used Tobacco Substance Use Type: Marijuana Physical Exam ED Vital Signs: Vital Signs - 24 hr 08/23/24 07:26 08/23/24 07:30 08/23/24 11:05 Temperature 98 F 98 F 98 F Pulse Rate 80 80 88 Respiratory Rate 16 16 18 Blood Pressure 108/71 108/71 94/55 L Pulse Oximetry 98 98 99 Oxygen Delivery Method Room Air Room Air BMI result Body Mass Index 16.9 Const General: cooperative, no acute distress, alert and awake Nutritional Appearance: well nourished Orientation/consciousness: patient oriented x3 Limitations: no limitations HENMT Head: Yes normal to inspection and Yes atraumatic Ears: hearing grossly normal bilaterally and external ears normal General nose exam: Normal external nose present, no nasal discharge noted and no epistaxis Face and sinus: Yes normal facial exam, No abrasion and No laceration Mouth: Normal oral and palatal mucosa present, no drooling and no muffled voice Eyes General: appearance normal, both eyes and all related structures Periorbital: periorbital findings normal Eyelids: Yes eyelids normal Conjunctivae: conjunctivae normal Pupils: Equal, round and reactive pupils present EOM: EOMs intact bilaterally Neck Neck: Yes normal visual inspection, Yes full ROM and Yes no lymphadenopathy Chest Chest palpation & inspection: normal inspection of the chest Resp Effort & Inspection: normal respiratory effort and able to speak in complete sentences GI Inspection: Yes normal to inspection Palpation (GI): Soft to palpation, not firm, Tenderness to palpation present (GI) in the RUQ, no guarding and not rigid Neuro General: patient oriented x3 and moves all extremities Cranial nerves: Yes Equal, round and reactive pupils present Cognition (Neuro): normal cognition Extrem General: Yes normal to inspection, Yes full ROM and Yes capillary refill normal Psych Appearance: grossly normal Mental Status: mental status grossly normal Affect: normal affect Attitude: cooperative Thought process: Normal thought process present Thought content: Normal thought content present Insight: Good insight present (Psych) Medications Administered Discontinued Medications Generic Name Dose Route Start Last Admin Trade Name Faustoq PRN Reason Stop Dose Admin Morphine Sulfate 4 mg 08/23/24 08:22 08/23/24 08:50 Morphine Sulfate 4 Mg/Ml Cartridge IVPUSH 08/23/24 08:23 Not Given ONCE ONE Protocol Ondansetron HCl 4 mg 08/23/24 08:22 08/23/24 08:50 Ondansetron Hcl 4 Mg/2 Ml Vial IVPUSH 08/23/24 08:23 Not Given ONCE ONE Medical Decision Making Medical Decision Making MDM Narrative: Patient is a 24 year old assigned female at with a history of gallstones presenting to the emergency department today with RUQ abdominal pain, nausea, and vomiting. Patient's physical exam was as noted in the physical exam portion of this note. Patient's blood work was unremarkable. Patient's urine showed no acute process. Patient's US of the GB and liver showed gallstones with mild gallbladder wall thickening and trac pericholecystic fluid with a positive sonographic adler's. I spoke to the general surgeon field contact technician who examined the patient and stated she'd be OK for discharge as long as she tolerated PO intake. Patient did tolerate PO and did not have any recurrence of pain. I explained my physical exam findings as well as all test results to the patient. I answered all questions asked by the patient. I stressed the importance of the patient taking her medication as directed (either prescribed or as the over the counter packaging recommends). I stressed the importance of the patient following up with her primary care provider and her surgeon as scheduled. I stressed the importance of the patient returning to the emergency department immediately if her symptoms were to worsen or if she were to develop any dizziness, shortness of breath, difficulty breathing, chest pain, blurry vision, loss of vision, nausea, vomiting, abdominal pain, fever, chills, back pain, or any other complaints. Patient verbalized agreement and understanding with this treatment plan and discharge. Differential Diagnosis Differential Diagnoses: The differential diagnosis associated with the presentation includes Gallstones Biliary colic Abdominal pain Gastritis Admission/Observation Consideration of admission/observation: Escalation of care including admission/observation considered Patient would have been admitted to the hospital had her work up had any findings where hospital admission was appropriate and her clinical presentation warranted hospital admission. Consult Healthcare Provider Management of the patient was discussed with: Certified Orthotist (spoke to the general surgeon as noted in the MDM Rationale portion of this note.) Lab Data [facility] Lab Attestation statement: I reviewed the patient's lab results. My interpretation of these results are in the MDM Rationale portion of this note. 08/23/24 08:04 08/23/24 08:04 Labs: Lab Results 08/23/24 08/23/24 Range/Units 08:01 08:04 WBC 7.6 (4.8-10.8) X10*3/uL RBC 3.67 L (4.20-5.50) X10*6/uL Hgb 10.7 L (12.0-16.0) g/dl Hct 30.7 L (37.0-47.0) % MCV 83.7 (80.0-98.0) fL MCH 29.2 (27.0-33.0) pg MCHC 34.9 (31.0-35.0) g/dl RDW 12.6 (11.0-16.0) % Plt Count 254 (160-400) X10*3/uL MPV 9.8 (9.4-12.3) fL Immature Gran % (Auto) 0.3 (0.0-0.4) % Neut % (Auto) 69.9 (45-73) % Lymph % (Auto) 20.0 (20-40) % [place] % (Auto) 9.0 (2-11) % Eos % (Auto) 0.4 (0-4) % Baso % (Auto) 0.4 (0-2) % Lymph # (Auto) 1.5 (1.2-4.9) X10*3/uL [place] # (Auto) 0.7 (0.1-1.2) X10*3/uL Eos # (Auto) 0.0 (0.0-0.4) X10*3/uL Baso # (Auto) 0.0 (0.0-0.2) X10*3/uL Abs Immat Gran (auto) 0.02 (0.00-0.03) X10*3/uL Absolute Neuts (auto) 5.3 (2.0-8.3) x10*3/uL Absolute Nucleated RBC 0.000 (0.0-0.012) X10*3/uL Nucleated RBC % (auto) 0.0 (0.0-0.2) /100WBC Sodium 142 (135-145) mmol/L Potassium 3.5 (3.3-5.1) mmol/L Chloride 109 H (96-108) mmol/L Carbon Dioxide 23 (22-29) mmol/L Anion Gap 14 (12-20) BUN 16 (9-16) mg/dL Creatinine 0.77 (0.5-1.4) mg/dL Estim Creat Clear Calc 88.6 Estimated GFR > 60 Random Glucose 119 H (60-115) mg/dL Calcium 8.9 (8.4-10.2) mg/dL Total Bilirubin 1.0 (0.0-1.0) mg/dL AST 41 H (5-31) U/L ALT 30 (0-31) U/L Alkaline Phosphatase 52 (39-117) U/L Total Protein 6.9 (6.5-8.0) g/dL Albumin 4.2 (3.5-5.0) g/dL Beta HCG, Quant < 2 mIU/mL Urine Color Yellow Urine Appearance Cloudy Urine pH 7.5 (5.0-9.0) Ur Specific [place] 1.025 (1.005-1.025) Urine Protein Trace (Neg-Trace) mg/dL Urine Glucose (UA) Negative (Negative) mg/dL Urine Ketones 80 (Negative) mg/dL Urine Blood Negative (Negative) Urine Nitrite Negative (Negative) Ur Leukocyte Esterase Trace H (Negative) Urine RBC 0-2 (0-2) /HPF Urine WBC 0-5 (0-5) /HPF Ur Squamous Epith Cells 3-5 (0-2) /HPF Urine Bacteria None Seen (None Seen) Hyaline Casts 0-2 (0-2) /LPF Independent Interpretation I performed an independent interpretation of an: Ultrasound Interpretation: My interpretation is in agreement with the radiologist's impression of this imaging study. L CLINICAL HISTORY: RUQ pain, hx of gallstones US abdomen limited Comparison: None Findings: The v pancreas is not imaged. The aorta and inferior vena cava are not imaged. The liver is normal in size and echotexture. There is no intrahepatic bile duct dilatation. The common duct is 4 mm in diameter. The gallbladder demonstrates gallstones, gallbladder wall thickening measuring up to 6 mm and trace pericholecystic fluid. There is reportedly a positive sonographic Adler's. The main portal vein is antegrade. The right kidney is not imaged. No ascites. IMPRESSION: Gallstones are present. There is mild gallbladder wall thickening and trace pericholecystic fluid. There is reportedly a positive sonographic Adler's. Findings may reflect early acute calculus cholecystitis. This document has been electronically signed by: Pb Larsen MD on 08/23/2024 09:43:46 Dictated By: Pb Larsen MD Signed By: Electronically signed by Pb Larsen MD 08/23/24 0993 Radiology Impression Discussion of test interpretation with radiology: I have reviewed the radiologist's reading. Critical Care Time Critical Care Time Critical Care Time: Yes Total Critical Care Time: 34 Attestation: I spent 34 minutes of Critical Care Time with this patient. This does not include time spent on separately reported billable procedures. Discharge Plan Discharge Clinical Impression: Biliary colic Patient Disposition: Home, Self-Care Instructions: Biliary Colic (ED) Additional Instructions: Follow up with your primary care provider and your general surgeon as scheduled. Return to the emergency department immediately if your symptoms worsen or if you develop any dizziness, shortness of breath, difficulty breathing, chest pain, blurry vision, loss of vision, nausea, vomiting, abdominal pain, fever, chills, back pain, or any other complaints. Prescriptions: No Action tamsulosin [Flomax] 0.4 mg capsule 0.4 mg PO DAILY Qty: 14 0RF Rx Instructions: take 1 tablet daily for 14 days. oxycodone 5 mg tablet 5 mg PO Q8H PRN (Reason: pain) Qty: 5 0RF levofloxacin 500 mg tablet 500 mg PO DAILY Qty: 5 0RF amoxicillin-pot clavulanate [Augmentin] 875-125 mg tablet 1 tab PO Q12H 7 Days Qty: 14 0RF pantoprazole [Protonix] 40 mg tablet,delayed release (DR/EC) 40 mg PO DAILY Qty: 14 0RF ondansetron 4 mg tablet,disintegrating 4 mg PO Q8H PRN (Reason: nausea and vomiting) Qty: 7 0RF Referrals: Trudi Pereira MD [Primary Care Provider] - Stand Alone Forms: Work/School Release Interventions: ED Discharge Assessment Last Done: 08/23/24 11:05 Discharge Date/Time: 08/23/24 11:06 Print Language: Hebrew
[2024-08-23 08:23] LABS: Alanine Aminotransferase 30 U/L (0-31); Albumin Level 4.2 g/dL (3.5-5.0); Alkaline Phosphatase 52 U/L (39-117); Anion Gap 14 (12-20); Aspartate Amino Transferase 41 U/L (5-31); Blood Urea Nitrogen 16 mg/dL (9-16); Calcium 8.9 mg/dL (8.4-10.2); Carbon Dioxide 23 mmol/L (22-29); Chloride 109 mmol/L (96-108); Creatinine Clr Calc Pharmacy 88.6; Estimated Glomerular Filt Rate > 60; Glucose Random 119 mg/dL (60-115); Potassium 3.5 mmol/L (3.3-5.1); Sodium 142 mmol/L (135-145); Total Protein 6.9 g/dL (6.5-8.0)
--- NOTE | 2024-08-23 08:46 | PC.NURSE ---
20G peripheral IV inserted to pt.'s RAC. Tolerated well. Good blood return, and flushes without difficulty or discomfort per pt.
--- NOTE | 2024-08-23 08:50 | PC.NURSE ---
Pt. refused both Zofran and Morphine- states that she isn't having pain or nausea at this time.
[2024-08-23 08:55] LABS: HCG Quantitative < 2 mIU/mL
--- NOTE | 2024-08-23 10:19 | PM.CNGS ---
History of Present Illness Consult details Consult date: 08/23/24 Requesting physician: Francie Benoit Narrative: 24-year-old female patient with a history of gallstones and previous episodes of abdominal pain felt in the right upper quadrant now presenting with an additional episode of right upper quadrant abdominal pain which began at approximately 04:00 today. The pain was similar to previous episodes felt mainly in the right upper quadrant associated with nausea and vomiting. The gallbladder issues began after the of her son approximately 2 years ago. She was evaluated by Dr. Cobb and arrangements are being made for elective laparoscopic cholecystectomy. This morning she reports feeling much improved with no ongoing abdominal pain. She feels she could be discharged to home with follow-up with Dr. Cobb as an outpatient. Review of Systems Review of Systems: Yes all other systems are reviewed and are negative PMFSH Past Medical History Medical History Gallstones No known health problems Surgical History Surgical History No pertinent past surgical history Social History Social History Alcohol intake: never Patient Tobacco Use Status: Never used Tobacco Smoked in Last 30 Days: No Use of substances other than those prescribed or required for medical reasons: Yes Substance Use Type: Marijuana Substance Use Frequency: Daily Advance Directives: No Advance Directives Information Provided: No Do you have a plan to hurt others: No Plan Patient : No Meds Allergies Allergy/AdvReac Type Severity Reaction Status Date / Time No Known Allergies Allergy Verified 08/23/24 07:27 [No Known Allergies*] Physical Exam Vital Signs: Vital Signs: Last Vital Signs Temp 98 F 08/23/24 07:30 Pulse 80 08/23/24 07:30 Resp 16 08/23/24 07:30 BP 108/71 08/23/24 07:30 Pulse Ox 98 08/23/24 07:30 O2 Del Method Room Air 08/23/24 07:30 BMI result Body Mass Index 16.9 Const: General: no acute distress Nutritional Appearance: well nourished Orientation/consciousness: patient oriented x3 Limitations: no limitations Resp: Effort & Inspection: normal respiratory effort, no audible wheezes and no cough Auscultation: clear to auscultation bilaterally GI: Other: Negative Adler sign Inspection: Yes normal to inspection Palpation (GI): Soft to palpation, nontender, no guarding and not rigid Neuro: General: patient oriented x3 Extrem: General: Yes no clubbing, cyanosis or edema Results Labs 08/23/24 08:04 08/23/24 08:04 Labs: Abnormal lab results 08/23/24 08/23/24 Range/Units 08:01 08:04 RBC 3.67 L (4.20-5.50) X10*6/uL Hgb 10.7 L (12.0-16.0) g/dl Hct 30.7 L (37.0-47.0) % Chloride 109 H (96-108) mmol/L Random Glucose 119 H (60-115) mg/dL AST 41 H (5-31) U/L Ur Leukocyte Esterase Trace H (Negative) Short CBC 08/23/24 Range/Units 08:04 WBC 7.6 (4.8-10.8) X10*3/uL Hgb 10.7 L (12.0-16.0) g/dl Hct 30.7 L (37.0-47.0) % Plt Count 254 (160-400) X10*3/uL BMP 08/23/24 08:04 Sodium 142 Potassium 3.5 Chloride 109 H Carbon Dioxide 23 BUN 16 Creatinine 0.77 Calcium 8.9 Liver Function 08/23/24 Range/Units 08:04 Total Bilirubin 1.0 (0.0-1.0) mg/dL AST 41 H (5-31) U/L ALT 30 (0-31) U/L Alkaline Phosphatase 52 (39-117) U/L Albumin 4.2 (3.5-5.0) g/dL Urine 08/23/24 Range/Units 08:01 Urine Color Yellow Urine Appearance Cloudy Urine pH 7.5 (5.0-9.0) Ur Specific [place] 1.025 (1.005-1.025) Urine Protein Trace (Neg-Trace) mg/dL Urine Glucose (UA) Negative (Negative) mg/dL All other labs normal. Assessment and Plan (1) Gallstones: Status: Acute (2) Biliary colic: Status: Acute Plan 24-year-old female patient with a recurrent episode of biliary colic due to gallstones. She feels much improved currently and would like to be discharged home. She should have a feeding trial prior to discharge. She is scheduled for a CT abdomen and pelvis at the request of Dr. Cobb. She should call the office for any changes. Procedures Date of Service Date of Service: 08/23/24
[2024-08-23 11:05] VITALS: BP 94/55; PULSE 88; RESP 18; TEMP 36.6; O2SAT 99
== END 2024-08-23 11:06 | disposition home or self-care (01) ==
PROVIDERS: Physician Assistant Medical; Emergency Provider Emergency Medicine; PCP Student in an Organized Health Care Education/Training Program
DX: K80.50 Calculus of bile duct without cholangitis or cholecystitis without obstruction (principal); K80.20 Calculus of gallbladder without cholecystitis without obstruction; R10.11 Right upper quadrant pain
CPT/HCPCS: 36415; 76705; 80053; 81001; 84702; 85025; 99284

== ENCOUNTER → 2024-08-23 07:22 | Outpatient (BNV) | payer MEDICAID, SELFPAY | PROVIDERS: Emergency Provider Emergency Medicine; PCP Student in an Organized Health Care Education/Training Program; Visit Provider Surgery | DX: K80.20 Calculus of gallbladder without cholecystitis without obstruction (principal); K80.50 Calculus of bile duct without cholangitis or cholecystitis without obstruction | CPT/HCPCS: 99283 ==

== ENCOUNTER → 2024-08-23 08:21 | Outpatient (BNV) | payer MEDICAID, SELFPAY | PROVIDERS: Emergency Provider Emergency Medicine; PCP Student in an Organized Health Care Education/Training Program; Visit Provider Radiology Vascular & Interventional Radiology | DX: K80.20 Calculus of gallbladder without cholecystitis without obstruction (principal) | CPT/HCPCS: 76705 ==

== ENCOUNTER 2024-09-19 03:55 | Emergency (ER) | payer MEDICAID, SELFPAY ==
--- NOTE | ~2024-09-19 | US_ITS ---
EXAMINATION: US ABDOMEN LIMITED CLINICAL INFORMATION: Right upper quadrant tenderness.. COMPARISON: Ultrasound dated August 23, 2024. TECHNIQUE: Real-time imaging of the right upper quadrant abdominal viscera using grayscale and color Doppler technique.. FINDINGS: There are multiple layering round hyperechoic lesions with posterior shadowing within the gallbladder lumen. The gallbladder is not distended. The gallbladder wall measures 4 mm. There is trace of pericholecystic fluid. The common bile duct measures 4 mm. US/US abdomen limited IMPRESSION: Cholelithiasis. Acute calculus cholecystitis should be considered in the correct clinical settings. Electronically signed by: Remy Larose MD 09/19/2024 08:13 AM EST
[2024-09-19 04:00] VITALS: BP 110/48; BP 96/57; PULSE 76; PULSE 83; RESP 16; TEMP 36.7; O2SAT 98; O2SAT 99; BMI 16.9
[2024-09-19 04:27] LABS: Basophils Percent Auto 0.3 % (0-2); Eosinophils Absolute Auto 0.1 X10*3/uL (0.0-0.4); Eosinophils Percent Auto 0.9 % (0-4); Hematocrit 31.7 % (37.0-47.0); Hemoglobin 11.2 g/dl (12.0-16.0); Imm Gran Abs Auto 0.01 X10*3/uL (0.00-0.03); Imm Gran Pct Auto 0.2 % (0.0-0.4); Lymphocytes Absolute Auto 2.7 X10*3/uL (1.2-4.9); Lymphocytes Percent Auto 47.3 % (20-40); MANUAL DIFF FLAG NO; Mean Corpuscular HGB Conc 35.3 g/dl (31.0-35.0); Mean Corpuscular Hemoglobin 28.8 pg (27.0-33.0); Mean Corpuscular Volume 81.5 fL (80.0-98.0); Mean Platelet Volume 10.3 fL (9.4-12.3); Monocytes Absolute Auto 0.3 X10*3/uL (0.1-1.2); Monocytes Percent Auto 5.1 % (2-11); Neutrophils Absolute Auto 2.7 x10*3/uL (2.0-8.3); Neutrophils Percent Auto 46.2 % (45-73); Platelet Count 232 X10*3/uL (160-400); Red Blood Count 3.89 X10*6/uL (4.20-5.50); Red Cell Distribution Width 12.1 % (11.0-16.0); White Blood Count 5.7 X10*3/uL (4.8-10.8)
[2024-09-19 04:48] LABS: Alanine Aminotransferase 10 U/L (0-31); Alkaline Phosphatase 46 U/L (39-117); Anion Gap 11 (12-20); Aspartate Amino Transferase 28 U/L (5-31); Bilirubin Total 0.4 mg/dL (0.0-1.0); Blood Urea Nitrogen 12 mg/dL (9-16); Calcium 8.9 mg/dL (8.4-10.2); Carbon Dioxide 26 mmol/L (22-29); Chloride 110 mmol/L (96-108); Creatinine Clr Calc Pharmacy 94.6; Estimated Glomerular Filt Rate > 60; Glucose Random 115 mg/dL (60-115); Lipase 31 U/L (8-78); Potassium 3.3 mmol/L (3.3-5.1); Sodium 144 mmol/L (135-145); Total Protein 7.1 g/dL (6.5-8.0)
--- NOTE | 2024-09-19 06:37 | ED_ITS ---
HPI - General Adult General Chief complaint: Abdominal Pain Stated complaint: ULQ pain 7/10 pinching, hx gallstones Time Seen by Provider: 09/19/24 06:26 Source: patient, EMS, RN notes reviewed and old records reviewed Mode of arrival: EMS Limitations: no limitations History of Present Illness ED Provider: Valeria HPI narrative: Patient is a 24-year-old female with history of gallstones presenting to the emergency department with complaint of right upper quadrant pain which began around 2:00 a.m.. Denies nausea or vomiting. Reports pain feels similar to previous episode of biliary colic. Patient states that while being in the emergency department her pain has improved somewhat. She does have follow-up scheduled with Dr. Miranda. complaint: abdominal pain Onset (ago): hour(s) Location: abdomen Radiation: non-radiation Severity: mild Quality: stabbing Pain Consistency: intermittent Associated symptoms: denies other symptoms Treatments prior to arrival: none Related Data Previous Rx's ?Medication ?Instructions ?Recorded levofloxacin 500 mg tablet 500 mg PO DAILY #5 tabs 07/07/20 oxycodone 5 mg tablet 5 mg PO Q8H PRN pain #5 tabs 07/07/20 tamsulosin 0.4 mg capsule (Flomax) 0.4 mg PO DAILY #14 caps 07/07/20 amoxicillin 875 mg-potassium 1 tab PO Q12H 7 days #14 tabs 04/06/21 clavulanate 125 mg tablet (Augmentin) pantoprazole 40 mg tablet,delayed 40 mg PO DAILY #14 tabs 10/26/22 release (Protonix) ondansetron 4 mg disintegrating 4 mg PO Q8H PRN nausea and 07/19/24 tablet vomiting #7 tabs Allergies Allergy/AdvReac Type Severity Reaction Status Date / Time No Known Allergies Allergy Verified 09/19/24 04:02 [No Known Allergies*] Review of Systems 2 Review of Systems: As per HPI Yes all other systems are reviewed and are negative Constitutional: Constitutional: Reports as per HPI [facility] Past Medical History Medical History Gallstones No known health problems Surgical History No pertinent past surgical history Social History Social History Alcohol intake: never Patient Tobacco Use Status: Never used Tobacco Smoked in Last 30 Days: No Use of substances other than those prescribed or required for medical reasons: Yes Substance Use Type: Marijuana Substance Use Frequency: Daily Advance Directives: No Advance Directives Information Provided: Yes Do you have a plan to hurt others: No Plan Patient : No Physical Exam ED Vital Signs: Vital Signs - 24 hr 09/19/24 04:00 Temperature 98.0 F Pulse Rate 76 Respiratory Rate 16 Blood Pressure 96/57 L Pulse Oximetry 98 Oxygen Delivery Method Room Air BMI result Body Mass Index 16.9 Vital signs have been reviewed and appear to be correct. Blood pressure normal. Heart rate normal. Respiratory rate normal. Temperature normal. Oxygen saturation normal. Const General: cooperative, healthy appearing and no acute distress Orientation/consciousness: oriented to person, oriented to place, oriented to time and patient oriented x3 Limitations: no limitations HENMT Head: Yes normocephalic and Yes atraumatic Ears: external ears normal General nose exam: Normal external nose present Face and sinus: Yes face symmetric Mouth: oropharynx normal and moist mucous membranes Throat: Yes uvula midline Eyes Pupils: Equal, round and reactive pupils present Neck Neck: Yes normal visual inspection and Yes supple Resp Effort & Inspection: normal respiratory effort and able to speak in complete sentences Auscultation: clear to auscultation bilaterally Cardio Rate: regular rate Rhythm: regular rhythm Heart sounds: S1 normal heart sound present and S2 normal heart sound present GI Palpation (GI): Soft to palpation, Tenderness to palpation present (GI) in the RUQ (mild TTP), no guarding and No Rebound tenderness present Auscultation: normoactive bowel sounds General: Yes no CVA tenderness Back/Spine/Pelvis Back: no CVA tenderness Skin General skin exam: elasticity normal and turgor normal Neuro General: oriented to person, oriented to place, oriented to time, patient oriented x3, moves all extremities, no focal motor deficits and CN's II-XI intact bilaterally Cranial nerves: Yes Equal, round and reactive pupils present Cognition (Neuro): normal cognition Extrem General: Yes full ROM, Yes no pedal edema and Yes no calf tenderness Psych Mental Status: mental status grossly normal Affect: normal affect Thought process: Normal thought process present Medical Decision Making Medical Decision Making MDM Narrative: Patient is a 24-year-old female with history of gallstones presenting to the emergency department with complaint of right upper quadrant pain which began around 2:00 a.m.. On exam patient is awake, A+Ox3, VS WNL, afebrile, normal neurological exam without focal deficits, physical exam findings as above. Given reported symptoms and physical exam findings, initial differential includes but is not limited to biliary colic, cholelithiasis, cholecystitis, gastritis. Labs notable for no leukocytosis, mild anemia consistent with prior labs, normal transaminases and Tbili, no evidence of WING. U/S notable for cholelithiasis. My interpretation is in agreement with the radiologist's interpretation. Do not suspect acute cholecystitis at this time as patient states her pain has essentially resolved. Feel she is stable for discharge, advised to follow up with Dr. Miranda. Discussed foods/drinks to avoid. Return precautions discussed. Patient verbalized understanding of and agreement with plan. Differential Diagnosis Differential Diagnoses: The differential diagnosis associated with the presentation includes As per [facility] Admission/Observation Consideration of admission/observation: Escalation of care including admission/observation considered Patient would have been admitted to the hospital had their work up had any findings where hospital admission was appropriate and their clinical presentation warranted hospital admission. Lab Data [facility] Lab Attestation statement: I reviewed the patient's lab results. As per [facility] 09/19/24 04:19 09/19/24 04:19 Labs: Lab Results 09/19/24 Range/Units 04:19 WBC 5.7 (4.8-10.8) X10*3/uL RBC 3.89 L (4.20-5.50) X10*6/uL Hgb 11.2 L (12.0-16.0) g/dl Hct 31.7 L (37.0-47.0) % MCV 81.5 (80.0-98.0) fL MCH 28.8 (27.0-33.0) pg MCHC 35.3 H (31.0-35.0) g/dl RDW 12.1 (11.0-16.0) % Plt Count 232 (160-400) X10*3/uL MPV 10.3 (9.4-12.3) fL Immature Gran % (Auto) 0.2 (0.0-0.4) % Neut % (Auto) 46.2 (45-73) % Lymph % (Auto) 47.3 H (20-40) % Mathews % (Auto) 5.1 (2-11) % Eos % (Auto) 0.9 (0-4) % Baso % (Auto) 0.3 (0-2) % Lymph # (Auto) 2.7 (1.2-4.9) X10*3/uL Mathews # (Auto) 0.3 (0.1-1.2) X10*3/uL Eos # (Auto) 0.1 (0.0-0.4) X10*3/uL Baso # (Auto) 0.0 (0.0-0.2) X10*3/uL Abs Immat Gran (auto) 0.01 (0.00-0.03) X10*3/uL Absolute Neuts (auto) 2.7 (2.0-8.3) x10*3/uL Absolute Nucleated RBC 0.000 (0.0-0.012) X10*3/uL Nucleated RBC % (auto) 0.0 (0.0-0.2) /100WBC Sodium 144 (135-145) mmol/L Potassium 3.3 (3.3-5.1) mmol/L Chloride 110 H (96-108) mmol/L Carbon Dioxide 26 (22-29) mmol/L Anion Gap 11 L (12-20) BUN 12 (9-16) mg/dL Creatinine 0.72 (0.5-1.4) mg/dL Estim Creat Clear Calc 94.6 Estimated GFR > 60 Random Glucose 115 (60-115) mg/dL Calcium 8.9 (8.4-10.2) mg/dL Total Bilirubin 0.4 (0.0-1.0) mg/dL AST 28 (5-31) U/L ALT 10 (0-31) U/L Alkaline Phosphatase 46 (39-117) U/L Total Protein 7.1 (6.5-8.0) g/dL Albumin 4.0 (3.5-5.0) g/dL Lipase 31 (8-78) U/L Independent Interpretation I performed an independent interpretation of an: Ultrasound Interpretation: U/S notable for cholelithiasis. Radiology Impression Discussion of test interpretation with radiology: I have reviewed the radiologist's reading. Radiologist Impression: FINDINGS: There are multiple layering round hyperechoic lesions with posterior shadowing within the gallbladder lumen. The gallbladder is not distended. The gallbladder wall measures 4 mm. There is trace of pericholecystic fluid. The common bile duct measures 4 mm. US/US abdomen limited IMPRESSION: Cholelithiasis. Acute calculus cholecystitis should be considered in the correct clinical settings. External Record Review External record reviewed: Inpatient record, Office record and Outpatient record Discharge Plan Discharge Clinical Impression: Gallstones Patient Disposition: Home, Self-Care Instructions: Gallstones (ED) Additional Instructions: You were evaluated in the emergency department today for abdominal pain. Your labs were reassuring. Your ultrasound again showed gallstones. We recommend that you follow-up with Dr. Miranda. Return to the emergency department if you develop worsening pain, persistent vomiting, fever or any other new or concerning symptoms. Prescriptions: No Action tamsulosin [Flomax] 0.4 mg capsule 0.4 mg PO DAILY Qty: 14 0RF Rx Instructions: take 1 tablet daily for 14 days. oxycodone 5 mg tablet 5 mg PO Q8H PRN (Reason: pain) Qty: 5 0RF levofloxacin 500 mg tablet 500 mg PO DAILY Qty: 5 0RF amoxicillin-pot clavulanate [Augmentin] 875-125 mg tablet 1 tab PO Q12H 7 Days Qty: 14 0RF pantoprazole [Protonix] 40 mg tablet,delayed release (DR/EC) 40 mg PO DAILY Qty: 14 0RF ondansetron 4 mg tablet,disintegrating 4 mg PO Q8H PRN (Reason: nausea and vomiting) Qty: 7 0RF Referrals: Philippe Miranda MD [Physician] - Stand Alone Forms: Work/School Release Print Language: Brazilian
--- NOTE | 2024-09-19 07:00 | PC.NURSE ---
Report taken from Ilsa North RN
[2024-09-19 08:56] VITALS: BP 90/59; PULSE 90; RESP 20; TEMP 37.2; O2SAT 100
== END 2024-09-19 08:57 | disposition home or self-care (01) ==
PROVIDERS: Emergency Provider Emergency Medicine Emergency Medical Services; PCP Student in an Organized Health Care Education/Training Program
DX: K80.20 Calculus of gallbladder without cholecystitis without obstruction (principal); R10.11 Right upper quadrant pain
CPT/HCPCS: 36415; 76705; 80053; 83690; 85025; 99284

== ENCOUNTER → 2024-09-19 06:38 | Outpatient (BNV) | payer MEDICAID, SELFPAY | PROVIDERS: Emergency Provider Emergency Medicine Emergency Medical Services; PCP Student in an Organized Health Care Education/Training Program; Visit Provider Radiology Diagnostic Radiology | DX: K80.20 Calculus of gallbladder without cholecystitis without obstruction (principal) | CPT/HCPCS: 76705 ==

== ENCOUNTER 2024-11-09 14:36 | Outpatient (REF) | payer MEDICAID, SELFPAY ==
--- NOTE | ~2024-11-09 | CT_ITS ---
CLINICAL HISTORY: K80.20 - Calculus of gallbladder without cholecystitis without obstruction CT abdomen and pelvis with contrast Comparison: None Findings: The lung bases are clear. Unremarkable gallbladder and solid organs. No urolithiasis. No bowel obstruction, pneumoperitoneum, or pneumatosis. Pelvic contents unremarkable. Normal appendix. No acute fracture. IMPRESSION: No acute findings. This document has been electronically signed by: Esteban Cotton MD on 11/11/2024 08:40:00
[2024-11-09] MEDS: iohexoL 350 MG/ML 75 ML INFUS..BTL 85 ML IV (16:37)
--- OUTSIDE RECORDS SUMMARY | 2024-11-09 17:15 | XMS_ITS | Encounter Summary ---
Author Organization [employer] Address [address] [place] [address] Care Team Providers Care Field Adjuster Name Role Phone Trudi Pereira MD Primary Care Pro vider Encounter Details Date Type Department Care Team (Latest Contact Info) Description 10/16/2024 Travel Social History Tobacco Use Types Packs/Day Years Used Date Smoking Tobacco: Never Smokeless Tobacco: Never Alcohol Use Standard Drinks/Week Comments Not Currently 0 (1 standard drink = 0.6 oz pur e alcohol) Depression Answer Date Recorded Patient Health Questionnaire-9 Score 2 05/26/2023 Housing Stability Answer Date Recorded What is your housing situation today? I have usha bang 02/15/[address] you li ve. Do you have problems with any of the following? None of the above 02/15/2024 Food Insecurity Answer Date Recorded Within the past 12 months, y ou worried that your food would run out before you got money to buy more: Never True 06/23/2023 Within the past 12 months,th e food you bought just didn't last and you didn't have enough money to get more: Never True 08/2022 Transportation Answer Date Recorded In the past 12 months, has l ack of transportation kept you from medical appts, meetings, work or from getting things needed for daily living? Yes, it has kept me from medical appointments or getting medications. 02/15/2024 Utilities Answer Date Recorded In the past 12 months, has t he electric, gas, oil or water company threatened to shut off services in your home? No 06/23/2023 Depression Answer Date Recorded Patient Health Questionnaire-2 Score 0 05/26/2023 Internet Access Answer Date Recorded Internet Access Q1 Yes 04/24/2024 Internet Access Q2 Not on file 04/24/2024 Comments Unknown Sex and Gender Information Value Date Recorded Sex Assigned at Female 06/22/2022 10:17 AM EDT Legal Sex Female 10:17 AM EDT Gender Identity Female 06/22/2022 10:17 AM EDT Sexual Orientation Straight 06/22/2022 10 :17 AM EDT documented as of this encounter Plan of Treatment Upcoming Encounters Date Type Department Care Team (Late st Contact Info) Description 11/13/2024 1:15 PM EDT Procedure Visit [facility] MEDICINE [address], [place] [id number] Josefina Lyn CNM [address] [place] [address] documented as of this encounter Visit Diagnoses Not on filedocumented in this encounter Additional Health Concerns Assessment Noted Time PHQ-9 Depression Total Score: 2 05/26/20 2:30 PM EDT documented as of this encounter Care Teams Field Adjuster Relationship Specialty Start Date End Date Trudi Pereira MD [address] [place] [address] PCP - General Internal Medicine 06/01/23 documented as of this encounter
--- OUTSIDE RECORDS SUMMARY | 2024-11-09 17:15 | XMS_ITS | Clinical Summary ---
Author Organization [employer] Address [address] [employer] [address] [place] [address] Care Team Providers Care Road Boss Name Role Phone Trudi Pereira MD Primary Care Pro vider Allergies No known active allergies Medications famotidine (Pepcid) 20 MG tablet Take 1 tablet (20 mg) by mouth if needed at bedtime for heartburn. 90 tablet 4 Active Calcium Antacid 500 MG chewable tablet CHEW 1 TABLET BY MOUTH TWICE DAILY 60 tablet 1 4 Active norethindrone (Ortho Micronor) 0.35 MG tabletIndications: Family planning Take 1 tablet (0.35 mg) by mouth Once per day. 90 tablet 3 4 025 Active ondansetron ODT (Zofran-ODT) 4 MG disintegrating tablet Take 4 mg by mouth every 8 (eight) hours if needed. 0 Active fluticasone (Flonase Allergy Relief) 50 MCG/ACT nasal spray Administer 2 sprays into affected nostril(s) at bed time. 1 Active ferrous sulfate 325 (65 Fe) MG tablet Take 325 mg by mouth. 2 Active cephalexin (Keflex) 500 MG capsule Take 500 mg by mouth 3 times daily. 0 Active acetaminophen (Tylenol) 500 MG tablet take 1-2 tablet by oral route every 6 - 8 hours as needed not to exceed 8 tablets per 24hrs as needed for pain 0 Active Hospital, Clinic, or Other Facility Administered Medication Ordered Dose Route Frequency Start Date End Date Status etonogestrel-eluting 68 mg contraceptive implant 1 eachIndications:Nexplanon insertion 1 each IL Once 10/16/2024 10/16/2024 Ended Active Problems Problem Noted Date Diagnosed Date GERD (gastroesophageal reflux disease) 3 Gastritis 05/27/2023 Healthcare maintenance 05/27/2023 Kidney stone 04/20/2023 Resolved Problems Problem Noted Date Diagnosed Date Resolved Date Allergic rhinitis 04/20/2023 05/27/2023 Encounters Date Type Department Care Team Description 11/03/2024 Population Health Risk Score [facility] (C[facility]) Department [address] [phone] Provider, Population Health Generic 10/16/2024 1:15 PM EST Procedure Visit [facility] [address] [place] [phone] Josefina Lyn CNM Nexplanon insertion (Primary Dx) 10/16/2024 Travel 09/29/2024 Telephone [facility] [address] [place] [phone] Ana Santos, RN Appointment Request 08/23/2024 Orders Only [facility] External Provider, [facility] from Last 3 Months Immunizations Name Administration Dates Next Due HPV, Quadrivalent 06/27/2014,06/20/2013,04/18/20 13 Hep A, ped/adol, 2 dose 12/24/2020,02/02/2017 Hep B, Adolescent or Pediatric 2002,2001,2002 IPV 03/13/2006, 4,2002,07/13,2002 Influenza injectable quadriv alent preservative free 05/26/2023,06/16/2022,06/27/2014 Influenza, Split (incl. lolis fied surface antigen) 06/20/2013 MMR 03/13/2006,03/12/2003 Meningococcal MCV4P [id number]-135 12/24/2020,04/18/20 13 Tdap 05/05/2022,04/06/2021,04/18/2013 Varicella 04/18/2013,03/12/2003 Family History Medical History Relation Name Comments Breast cancer Mother's Sister Seizures Sister Relation Name Status Comments Mother's Sister Sister Social History Tobacco Use Types Packs/Day Years Used Date Smoking Tobacco: Never Smokeless Tobacco: Never Tobacco Cessation:Counseling Given: Not Answered Alcohol Use Standard Drinks/Week Comments Not Currently [...] Orientation Straight 06/22/2022 10 :17 AM EDT Last Filed Vital Signs Vital Sign Reading Time Taken Comments Blood Pressure 112/65 10/16/2024 1:22 PM EST Pulse 87 10/16/2024 1:22 PM EST Temperature 36.4 ??C (97.5 ??F) 10/16/2024 1:22 PM ES T Respiratory Rate 20 10/16/2024 1:22 PM EST Oxygen Saturation 99% 10/16/2024 1:22 PM EST Inhaled Oxygen Concentration - - Weight 48.9 kg (107 lb 12.8 oz) 10/16/2024 1:22 PM EST Height 170.2 cm (5' 7 ) 10/16/2024 1:22 PM EST Body Mass Index 16.88 10/16/2024 1:22 PM EST Plan of Treatment Upcoming Encounters Date Type Department Care Team (Late st Contact Info) Description 11/13/2024 1:15 PM EDT Procedure Visit [facility] [address] [place], [place] [phone] Josefina Lyn, CNM [address] [place], [place] [phone] Health Maintenance Due Date Last Done Comments Alcohol/Substance Use Screening 2014 Hepatitis C Screening 2020 Chlamydia and Gonorrhea Screening 12/24/2021 12/24/2020, 08/01/2020 Pap Smear 2023 COVID-19 Vaccine ( season) 2024 05/05/2021, 01/28/2021 Influenza Vaccine (#1) 2024 , 06/16/2022, 06/27/2014, Additional history exists Depression Screening 05/26/2024 05/26/2023, 05/26/20 23 SDOH Screening 02/14/2025 02/15/2024 Family Planning (PISQ) 10/16/2025 10/16/2024 Tobacco Screening 10/16/2025 10/16/2024 DTaP/Tdap/Td Vaccines (8 - Td or Tdap) 05/05/2032 05/05/2022, 04/06/2021, 04/18/2013, Additional history exists Zoster Vaccines (1 of 2) 2052 RSV Patients and Patients Aged 60 years or older (1 - 1-dose 75+ series) 2077 Hepatitis B Vaccines Completed 2002, 2002, 2002 IPV Vaccines Completed 03/13/2006, 09/24, 2002, Additional history exists HPV Vaccines Completed 06/27/2014, 05/24, 04/18/2013 HIV Screening Completed 08/01/2020 Hepatitis A Vaccines Completed 12/24/2020, 02/03/20 17 Meningococcal Vaccine Completed 12/24/2020, 013 HIB Vaccines Aged Out No longer eligi ble based on patient's age to complete this topic Pneumococcal Vaccine: Pediatrics (0 to 5 Years) and At-Risk Patients (6 to 49) Years) Aged Out No longer eligible based on patient's age to complete this topic RSV under 20 months Aged Out No longe r eligible based on patient's age to complete this topic Rotavirus Vaccines Aged Out No longer eligible based on patient's age to complete this topic Procedures Procedure Name Priority Date/Time Associated Diagnosis Comments POCT , URINE Routine 10/16/2024 1:34 PM EST Nexplanon insertion ELECTRICAL SUBCONTRACTOR INSERTION/REMOVAL OF CONTRACEPTIVE CAPSULE Routine 10/16/2024 1:30 PM EST Nexplanon insertion US ABDOMEN LIMITED Routine 09/19/2024 7: 23 AM EST US ABDOMEN LIMITED Routine 08/23/2024 9: 43 AM EST COMPREHENSIVE METABOLIC PANEL Routine 08/23/2024 8:04 AM EST CBC WITH AUTO DIFFERENTIAL Routine 08/23/2024 8:04 AM EST URINALYSIS, COMPLETE, WITH REFLEX TO CULTURE Routine 08/23/2024 8:01 AM EST ZZZ HISTORICAL CHLAMYDIA/N. GONORRHOEAE RNA, TMA, UROGENITAL Routine 12/24/2020 3:16 PM EDT HIV 1/2 ANTIGEN/ANTIBODY, FOURTH GENERATION W/RFL Routine 08/01/2020 11:33 AM EST from Last 3 Months or Most Recently Relevant to Health Maintenance Results * POCT , urine manually resulted (10/16/2024 1:34 PM EST) Preg Test, Ur Negative Negative, Indeterminate, None Detected, Invalid, Specimen unsatisfactory for evaluation, Weakly Positive QC Media Lot # [id number] Lot# Expiration Date [id number] Urine 10/16/2024 1:34 PM EST Josefina Lyn CNM POINT OF CARE TEST ENTER/ EDIT ORDERABLES Final Result * Insertion/Removal of Contraceptive Capsule (10/16/2024 1:30 PM EST) Narrative Josefina Lyn CNM - 10/16/2024 1:30 PM EST Josefina Lyn CNM ? 10/16/2024 ??1:54 PM Insertion/Removal of Contraceptive Capsule Date/Time: 10/16/2024 1:30 PM Performed by: Josefina Lyn CNM Authorized by: Josefina Lyn CNM ?? Confirmed correct patient, procedure, site, and patient consented: Yes ?? Participating Staff: ??Josefina Lyn CNM Consent: ??Consent obtained: ??Verbal and written ??Consent given by: ??Patient ??Procedural risks and benefits discussed: Yes ?Patient questions answered: yes ?Patient agrees, verbalizes understanding, and wants to proceed: yes ?Educational handouts given: yes ?Instructions and paperwork completed: yes ?? Indication: ??Indication: insertion of non-biodegradable drug delivery implant ?? Pre-procedure: ??Pre-procedure timeout performed: yes ?Prepped with: povidone-iodine ?Local anesthetic: 2ml 2% lidocaine. ??The site was cleaned and prepped in a sterile fashion: yes ?? Procedure: ??Procedure: ??Insertion ??Left/right: ??Left ??Preloaded contraceptive capsule trocar was placed subdermally: yes ?Visualization of implant was obtained: yes ?Contraceptive capsule was inserted and trocar removed: yes ?Visualization of notch in stylet and palpation of device: yes ?Palpation confirms placement by provider and patient: yes ?Site was closed with steri-strips and pressure bandage applied: yes ?? us Josefina Lyn CNM IN CLINIC/BEDSIDE ORDERAB LES Final Result * US Abdomen Limited (09/19/2024 7:23 AM EST) Only the most recent of2 resultswithin the time period is included. Anatomical Region Laterality Modality Abdomen Ultrasound 09/19/2024 7:23 AM EST Narrative 09/19/2024 8:16 AM EST ? [facility] ?[address] ?[place] [address] ? Ultrasound Report ? Signed ? Patient: Shane,Altagracia ?MR#: [id number] ?? 117 ? : 2000 ?Acct:[id number] ? Age/Sex: 24 / F ?ADM Date: 09/19/24 ? Loc: HO.ED ? Attending Dr: ? Ordering Physician: Eva Shaw NP ?? Date of Service: 09/19/24 ?? Procedure(s): US abdomen limited ?? Accession Number(s): [id number] ? cc: Trudi Pereira MD; Eva Shaw NP ? EXAMINATION: ?? US ABDOMEN LIMITED ? CLINICAL INFORMATION: ?? Right upper quadrant tenderness.. ? COMPARISON: ?? Ultrasound dated August 23, 2024. ? TECHNIQUE: ?? Real-time imaging of the right upper quadrant abdominal viscera using ?? grayscale and color Doppler technique.. ? FINDINGS: ?? There are multiple layering round hyperechoic lesions with posterior ?? shadowing within the gallbladder lumen. ?? The gallbladder is not distended. ?? The gallbladder wall measures 4 mm. ?? There is trace of pericholecystic fluid. ?? The common bile duct measures 4 mm. ? US/US abdomen limited ?? IMPRESSION: ?? Cholelithiasis. Acute calculus cholecystitis should be considered in ?? the correct clinical settings. ? Electronically signed by: ??Remy Larose MD ??09/19/2024 08:13 AM ?? EST RP ? Dictated By: ?Remy Shah MD ? Signed By: ?<Electronically signed by Remy Santos MD in OV> ? 09/19/24 08 ? DD/ 0723 ? TD/TT: 09/19/24 0728 ? [employer]: ? Procedure Note Donotuseinterpreter, Image - 09/19/[address] [address] Ultrasound Report Signed Patient: Jose Luis Shane#: [id number] : 2000Acct:[id number] Age/Sex: 24 / FADM Date: 09/19/24 Loc: HO.ED Attending Dr: Ordering Physician: Eva Shaw NP Date of Service: 09/19/24 Procedure(s): US abdomen limited Accession Number(s): [id number] cc: Trudi Pereira MD; Eva Shaw NP EXAMINATION: US ABDOMEN LIMITED CLINICAL INFORMATION: Right upper quadrant tenderness.. COMPARISON: Ultrasound dated August 23, 2024. TECHNIQUE: Real-time imaging of the right upper quadrant abdominal viscera using grayscale and color Doppler technique.. FINDINGS: There are multiple layering round hyperechoic lesions with posterior shadowing within the gallbladder lumen. The gallbladder is not distended. The gallbladder wall measures 4 mm. There is trace of pericholecystic fluid. The common bile duct measures 4 mm. US/US abdomen limited IMPRESSION: Cholelithiasis. Acute calculus cholecystitis should be considered in the correct clinical settings. Electronically signed by: Remy Larose MD 09/19/2024 08:13 AM EST Dictated By: Remy Shah MD Signed By: <Electronically signed by Remy Santos MDin OV> 09/19/24 0813 DD/ 0723 TD/TT: 09/19/24 0728 [employer]: [facility] External Provider IMG US PROCEDURES Final Result * (ABNORMAL) CBC auto differential (08/23/2024 8:04 AM EST) White Blood Count 7.6 4.8 - 10.8 X10*3/uL [facility] Red Blood Count 3.67(L) 4.20 - 5.50 X10*6/uL [facility] Hemoglobin 10.7(L) 12.0 - 16.0 g/dl [facility] Hematocrit 30.7(L) 37.0 - 47.0 % [facility] Mean Corpuscular Volume 83.7 80.0 - 98.0 fL [facility] Mean Corpuscular Hemoglobin 29.2 27.0 - 33.0 pg [facility] Mean Corpuscular HGB Conc 34.9 31.0 - 35.0 g/dl [facility] Red Cell Distribution Width 12.6 11.0 - 16.0 % [facility] Platelet Count 254 160 - 400 X10*3/uL [facility] Mean Platelet Volume 9.8 9.4 - 12.3 fL [facility] Neutrophils Percent Auto 69.9 45 - 73 % [facility] Imm Gran Pct Auto 0.3 0.0 - 0.4 % [facility] Lymphocytes Percent Auto 20.0 20 - 40 % [facility] Monocytes Percent Auto 9.0 2 - 11 % [facility] Eosinophils Percent Auto 0.4 0 - 4 % [facility] Basophils Percent Auto 0.4 0 - 2 % [facility] NRBC Pct Auto 0.0 0.0 - 0.2 /100WBC [facility] Neutrophils Absolute Auto 5.3 2.0 - 8.3 x10*3/uL [facility] Imm Gran Abs Auto 0.02 0.00 - 0.03 X10*3/uL [facility] Lymphocytes Absolute Auto 1.5 1.2 - 4.9 X10*3/uL [facility] Monocytes Absolute Auto 0.7 0.1 - 1.2 X10*3/uL [facility] Eosinophils Absolute Auto 0.0 0.0 - 0.4 X10*3/uL [facility] Basophils Absolute Auto 0.0 0.0 - 0.2 X10*3/uL [facility] NRBC Abs Auto 0.000 0.0 - 0.012 X10*3/uL [facility] 08/23/2024 8:04 AM EST 08/23/2024 8:06 AM EST us Generic External Data Provider LAB BLOOD ORDERAB LES Final Result [facility] [address] [place] [address] [phone] * (ABNORMAL) Comprehensive Metabolic Panel (08/23/2024 8:04 AM EST) Sodium 142 135 - 145 mmol/L [facility] Potassium 3.5 3.3 - 5.1 mmol/L [facility] Chloride 109(H) 96 - 108 mmol/L [facility] Carbon Dioxide 23 22 - 29 mmol/L [facility] Anion Gap 14 12 - 20 [facility] Urea Nitrogen (BUN) 16 9 - 16 mg/dL [facility] Creatinine, Serum 0.77 0.5 - 1.4 mg/dL [facility] Creatinine Clr Calc Pharmacy 88.6 [facility] Comment:Provided height and weight: 170.18 cm,48.988 kg.eGFR (calculated from the MDRD study equation) and eCrCl(calculated from the Cockcroft-Gault equation) are based ondifferent parameters and may not yield comparable results.If eCrCl result is absurd, please check patient'sheight/weight. Estimated Glomerular Filt Rate >60 [facility] Comment:Chronic Kidney Disea se: Estimated GFR < 60 mL/min/1.32u7Prjntd Kidney Disease: Estimated GFR < 15 mL/min/1.73m2 Glucose 119(H) 60 - 115 mg/dL [facility] Calcium 8.9 8.4 - 10.2 mg/dL [facility] Bilirubin, Total 1.0 0.0 - 1.0 mg/dL [facility] Aspartate Amino Transferase 41(H) 5 - 31 U/L [facility] Alanine Aminotransferase 30 0 - 31 U/L [facility] Total Protein 6.9 6.5 - 8.0 g/dL [facility] Albumin Level 4.2 3.5 - 5.0 g/dL [facility] Alkaline Phosphatase 52 39 - 117 U/L [facility] 08/23/2024 8:04 AM EST 08/23/2024 8:06 AM EST us Generic External Data Provider LAB BLOOD ORDERAB LES Final Result Performing Organization Address City/[facility]/ZIP Co de Phone Number [facility] [address] [place] [phone] * (ABNORMAL) Urinalysis, Complete, with Reflex to Culture (08/23/2024 8:01 AM EST) Color Urine Yellow [facility] Appearance Urine Cloudy [facility] PH 7.5 5.0 - 9.0 [facility] Glucose Urine UA Negative Negative mg/dL [facility] Urine Blood Negative Negative [facility] Specific [place] - Urine 1.025 1.005 - 1.025 [facility] Urine Protein Trace Neg-Trace mg/dL [facility] Urine Ketones 80 Negative mg/dL [facility] Nitrite Urine Negative Negative [facility] Leukocyte Esterase Urine Trace(A) Negative [facility] RBC Urine 0-2 0 - 2 /HPF [facility] Urine WBC 0-5 0 - 5 /HPF [facility] Urine Squamous Epithelial Cell 3-5 0 - 2 /HPF [facility] Urine Bacteria None Seen None Seen [facility] Hyaline Casts, Urine 0-2 0 - 2 /LPF [facility] 08/23/2024 8:01 AM EST 08/23/2024 8:06 AM EST Narrative [facility] - 08/23/2024 8:14 AM EST [id number], Clean Catch us Generic External Data Provider LAB URINE ORDERAB LES Final Result Performing Organization Address City/[facility]/ZIP Co de Phone Number [facility] [address] [place] [phone] * CHLAMYDIA/N. GONORRHOEAE RNA, TMA, UROGENITAL (12/24/2020 3:16 PM EDT) Chlamydia trachomatis RNA, TMA, Urogenital NOT DETECTED NOT DETECTED [facility] COMMENT SEE COMMENT [facility] Comment: The analytical performance characteristics of this assay, when used to test SurePath(TM) specimens have been determined by [facility]. The modifications have not been cleared or approved by the FDA. This assay has been validated pursuant to the CLIA regulations and is used for clinical purposes. ?? For additional information, please refer to https://education.[employer]/faq/ZFQ914 (This link is being provided for information/ educational purposes only.) ?? Neisseria gonorrhoeae RNA, TMA, Urogenital NOT DETECTED NOT DETECTED [facility] 12/24/2020 3:16 PM EDT Willa Howell MD HISTORICAL/NON ORDERABLE LABS Final Result [facility] [address] * HIV 1/2 ANTIGEN/ANTIBODY,FOURTH GENERATION W/RFL (08/01/2020 11:33 AM EST) HIV-1/2 ANTIGEN AND ANTIBODIES, 4TH GENERATION W/ REFLEX TNP [facility] Comment: TEST NOT PERFORMED ?? No suitable specimen received. 08/01/2020 11:3 3 AM EST us Jerome Dimas CORPORATE TRAINER LAB BLOOD ORDERABLES Final Result Performing Organization Address City/[facility]/ZIP Co de Phone Number [facility] [address] from Last 3 Months or Most Recently Relevant to Health Maintenance [facility] Care Teams [address] Boss Relationship Specialty Start Date End Date Trudi Pereira MD [address] [place] [phone] PCP - General Internal Medicine 06/01/23
--- OUTSIDE RECORDS SUMMARY | 2024-11-09 17:15 | XMS_ITS | Encounter Summary ---
Author Organization [employer] [facility] Address [address] [place] [address] 7 [place] [address] Care Team Providers Care Diesel Fleet Mechanic Name Role Phone Maryann Vásquez Primary Care Provider [phone] Truid Pereira MD Primary Care Pro vider Encounter Details Date Type Department Care Team (Late st Contact Info) Description 09/11/2022 Orders Only [facility] [address] [place] [phone] Venessa Dunaway LPN Social History Tobacco Use Types Packs/Day Years Used Date Smoking Tobacco: Never Assessed Comments Unknown Sex and Gender Information Value [...] Description 11/13/2024 1:15 PM EDT Procedure Visit [facility] [address] [place] [phone] Josefina Lyn CNM [address] [place], [place] [phone] documented as of this encounter Visit Diagnoses Not on filedocumented in this encounter Care Teams Diesel Fleet Mechanic Relationship Specialty Start Date End Date Maryann Vásquez FNP PCP - General Family Medicine 06/30/21 05/31/23 Trudi Pereira MD [address] [place] [phone] PCP - General Internal Medicine 06/01/23 documented as of this encounter
--- OUTSIDE RECORDS SUMMARY | 2024-11-09 17:15 | XMS_ITS | Encounter Summary ---
Author Organization [employer] Address [address] [facility] [place] [address] Care Team Providers Care Professor Of Mathematics Name Role Phone Trudi Pereira MD Primary Care Pro vider Encounter Details Date Type Department Care Team (Latest Contact Info) Description 10/16/2024 1:15 PM EST Procedure Visit [facility] [address] [place] [address] Josefina Lyn CNM [address] [place] [address] Nexplanon insertion (Primary Dx) Social History Tobacco Use Types Packs/Day Years [...] the past 12 months, has t he [employer], gas, oil or water company threatened to [...] AM EDT documented as of this encounter Last Filed Vital Signs Vital Sign Reading [...] Mass Index 16.88 10/16/2024 1:22 PM EST documented in this encounter Progress Notes * Josefina Lyn CNM - 10/16/2024 1:15 PM ESTAssociated Order(s): Insertion/Removal of Contraceptive Capsule Subjective Patient ID: Altagracia Shane is a 24 y.o. female who presents for Nexplanon LMP 10/08/2024. No contraindications to Nexplanon. Here with son and sister, Miranda who remained forvisit with Altagracia's consent. Known gallstones, seen in ER 08/2023, has followup imaging next month. test negative. Not sexually active without a condom in past month. Never had pap, would like to do this at next appointment. Review of Systems Objective BP 112/65 (BP Location: Left arm, Patient Position: Sitting, BP Cuff Size: Adult) Pulse 87 Temp97.5 ??F (36.4 ??C) (Temporal) Resp 20 Ht 5' 7 (1.702 m) Wt 107 lb 12.8 oz (48.9 kg) LMP 10/06/2024 SpO2 99% BMI 16.88 kg/m?? Physical Exam Constitutional: Appearance: Normal appearance. Neurological: Mental Status: She is alert. Psychiatric: Mood and Affect: Mood normal. Behavior: Behavior normal. Assessment/Plan Diagnoses and all orders for this visit: Nexplanon insertion - POCT , urine manually resulted - etonogestrel-eluting 68 mg contraceptive implant 1 each Reviewed normal side effects and danger signs. Report arm pain, redness, heavy bleeding. Leave pressure dressing on for 24h, Band-Aid for 3-5days. Expect irregular bleeding, or less likely, no bleeding at all. Report if implant not palpable. Return in 4wks for follow up. Will do pap at that appointment and STI testing. Advised to use additional control for 7 days. Given condoms. 100% condoms encouraged for STI prevention. Reviewed that Nexplanon is FDA approved for 3y, but research supports extended use up to 5 years. May remove any time she wants. Insertion/Removal of Contraceptive Capsule Date/Time: 10/16/2024 1:30 PM Performed by: Josefina Lyn CNM Authorized by: Josefina Lyn CNM Confirmed correct patient, procedure, site, and patient consented: Yes Participating Staff: Josefina Lyn CNM Consent: Consent obtained: Verbal and written Consent given by: Patient Procedural risks and benefits discussed: Yes Patient questions answered: yes Patient agrees, verbalizes understanding, and wants to proceed: yes Educational handouts given: yes Instructions and paperwork completed: yes Indication: Indication: insertion of non-biodegradable drug delivery implant Pre-procedure: Pre-procedure timeout performed: yes Prepped with: povidone-iodine Local anesthetic: 2ml 2% lidocaine. The site was cleaned and prepped in a sterile fashion: yes Procedure: Procedure: Insertion Left/right: Left Preloaded contraceptive capsule trocar was placed subdermally: yes Visualization of implant was obtained: yes Contraceptive capsule was inserted and trocar removed: yes Visualization of notch in stylet and palpation of device: yes Palpation confirms placement by provider and patient: yes Site was closed with steri-strips and pressure bandage applied: yes documented in this encounter Plan of Treatment Upcoming Encounters Date Type Department Care Team (Late st Contact Info) Description 11/13/2024 1:15 PM EDT Procedure Visit [facility] [address], [place] [phone] Josefina Lyn CNM [address], [place] [phone] documented as of this encounter Procedures Procedure Name Priority Date/Time Associated Diagnosis Comments POCT , URINE Routine 10/16/2024 1:34 PM EST Nexplanon insertion AUTO ROLLER INSERTION/REMOVAL OF CONTRACEPTIVE CAPSULE Routine 10/16/2024 1:30 PM EST Nexplanon insertion documented in this encounter Results * POCT , urine manually resulted (10/16/2024 1:34 PM EST) Preg Test, Ur Negative Negative, Indeterminate, None Detected, Invalid, Specimen unsatisfactory for evaluation, Weakly Positive QC Media Lot # [id number] Lot# Expiration Date [id number] Urine 10/16/2024 1:34 PM EST us Josefina Lyn CNM POINT OF CARE TEST [...] steri-strips and pressure bandage applied: yes ?? Josefina Lyn CNM IN CLINIC/BEDSIDE ORDERAB LES Final Result documented in this encounter Visit Diagnoses Diagnosis Nexplanon insertion- Primary Cervical cancer screening- Primary Screening for malignant neoplasm of the cervix Checking subdermal contraceptive Surveillance of previously prescribed implantable subdermal contraceptive Encntr screen for infections w sexl mode of transmiss documented in this encounter Administered Medications Inactive Administered Medications - up to 3 most recent administrations Medication Order MAR Action Action Date Dose Rate Site etonogestrel-eluting 68 mg contraceptive implant 1 each 1 each, Implant, Once, On Wed10/16/24 at 1400, For 1 doseIndications:Nexplanon insertion Given 10/16/2024 1:30 PM EST 1 each documented in this encounter Additional Health Concerns Assessment Noted Time PHQ-9 Depression Total Score: 2 05/26/20 23 2:30 PM EDT documented as of this encounter Care Teams Professor Of Mathematics Relationship Specialty Start Date End Date Trudi Pereira MD [address] [place] [id number] PCP - General Internal Medicine 06/01/23 documented as of this encounter
--- OUTSIDE RECORDS SUMMARY | 2024-11-09 17:15 | XMS_ITS | Clinical Summary ---
Author Organization [facility] Address [address] [place] [id number] Care Team Providers Care Director Life Insurance Name Role Phone Unknown Primary Care Provider [phone] Allergies No known active allergies Medications Medication Sig Dispensed Refills Start Date End Date Status cephalexin (KEFLEX) 500 MG capsule Take 1 capsule (500 mg total) by mouth 3 (three) times a day. Take as directed or until you run out 30 capsule 06/16/2020 Active ondansetron (ZOFRAN-ODT) 4 MG disintegrating tablet Take 1 tablet (4 mg total) by mouth 3 times daily (every 8 hours) as needed for nausea or vomiting. Place tablet on tongue to dissolve. 10 tablet 06/16/2020 Active Social History Tobacco Use Types Packs/Day Years Used Date Smoking Tobacco: Never Assessed Sex and Gender Information Value Date Recorded Sex Assigned at Not on file Gender Identity Not on file Sexual Orientation Not on file Last Filed Vital Signs Vital Sign Reading Time Taken Comments Blood Pressure 96/66 07/23/2020 12:56 PM EST Pulse 97 07/23/2020 12:56 PM EST Temperature 36.4 ??C (97.6 ??F) 07/23/2020 12:[address] Respiratory Rate 16 07/23/2020 12:56 PM EST Oxygen Saturation 100% 07/23/2020 12:56 PM EST Inhaled Oxygen Concentration - - Weight 51.3 kg (113 lb) 07/23/2020 12:56 PM EST Height 170.2 cm (5' 7 ) 07/23/2020 12:56 PM EST Body Mass Index 17.7 07/23/2020 12:56 PM EST Plan of Treatment Health Maintenance Due Date Last Done Comments Hepatitis C Virus Screening 2002 HIV Screening 2015 HPV Vaccines (1 - 3-dose series) 2017 DTaP/Tdap/Td Vaccines (1 - Tdap) 2021 Hepatitis B Vaccines (1 of 3 - 19+ 3-dose series) 2021 Pap Smear (Ages 21-65) 2023 Influenza Vaccine 03/23/2024 COVID-19 Vaccine (1 - 2023-2 5 season) 2024 Pneumococcal Vaccine: Pediat michael (0-5 Years) and At-Risk Patients (6 to 49 Years) Aged Out No longer eligible b ased on patient's age to complete this topic Care Teams Director Life Insurance Relationship Specialty Start Date End Date Unknown Unknow Provider Address PCP - General 07/23/20
--- OUTSIDE RECORDS SUMMARY | 2024-11-09 17:15 | XMS_ITS | Encounter Summary ---
Author Organization [employer] Address [address] [facility] [address] [place] [address] Care Team Providers Care Teacher Aide Name Role Phone Trudi Pereira MD Primary Care Pro vider Encounter Details Date Type Department Care Team ([facility] st Contact Info) Description 11/03/2024 Population Health Risk Score [facility] Care [facility] ([facility]) Department [address] [phone] Provider, Population Health Generic Social History Tobacco Use Types Packs/Day Years [...] Description 11/13/2024 1:15 PM EDT Procedure Visit [facility] [address] [place] [phone] Josefina Lyn CNM [address] [place], [place] [phone] documented as of this encounter Visit Diagnoses Not on filedocumented in this encounter Additional Health Concerns Assessment Noted Time PHQ-9 Depression Total Score: 2 05/26/20 2:30 PM EDT documented as of this encounter Care Teams Teacher Aide Relationship Specialty Start Date End Date Trudi Pereira MD [address] [place] [id number] PCP - General Internal Medicine 06/01/23 documented as of this encounter
== END 2024-11-09 14:37 | disposition home or self-care (01) ==
LOC: HO.CT 14:36
PROVIDERS: PCP Student in an Organized Health Care Education/Training Program; Visit Provider Surgery
DX: K80.20 Calculus of gallbladder without cholecystitis without obstruction (principal)
CPT/HCPCS: 74177; Q9967

== ENCOUNTER → 2024-11-09 14:37 | Outpatient (BNV) | payer MEDICAID, SELFPAY | PROVIDERS: PCP Student in an Organized Health Care Education/Training Program; Visit Provider Specialist | DX: K80.20 Calculus of gallbladder without cholecystitis without obstruction (principal) | CPT/HCPCS: 74177 ==

== ENCOUNTER 2024-12-01 09:49 | Day surgery (SDC) | payer MEDICAID, SELFPAY ==
[2024-11-29 10:53] VITALS: BMI 16.9
--- NOTE | 2024-11-29 14:23 | HO.ANESPROP2 ---
Documented by User: Bibiana Pretty NP 11/29/24 14:24 HPI - Anesthesia Eval Consult details Narrative: 24yo F for Cholecystectomy Laparoscopic, possible open PMFSH Active Problems Active Problems: All Active Problems Biliary colic (Acute) COVID-19 (Acute) Gallstones (Acute) Past Medical History Medical History Gallstones Surgical History Surgical History No pertinent past surgical history Social History Social History Alcohol intake: never Patient Tobacco Use Status: Never used Tobacco Substance Use Type: Marijuana Meds Allergies Allergy/AdvReac Type Severity Reaction Status Date / Time No Known Allergies Allergy Verified 12/01/24 09:54 [No Known Allergies*] Exam Height,Weight and Vital Signs: Height 5 ft 7 in Weight 48.988 kg Pertinent Lab Results Pertinent Lab Results: Laboratory Tests 09/19/24 04:19 WBC 5.7 Hgb 11.2 L Hct 31.7 L Plt Count 232 Sodium 144 Potassium 3.3 Chloride 110 H Carbon Dioxide 26 BUN 12 Creatinine 0.72 Assessment and Plan Assessment Anesthesia Assessment: Chart Reviewed Documented by User: Hemalatha Garcia MD 12/01/24 12:38 HPI - Anesthesia Eval Consult details Narrative: 24yo F for Laparoscopic Cholecystectomy, possible open PMFSH Past Medical History Medical History Gallstones Family History Family history of problems with anesthesia: No Surgical History Surgical History No pertinent past surgical history History of Problems with Anesthesia: No Social History Social History Alcohol intake: never Patient Tobacco Use Status: Never used Tobacco Substance Use Type: Marijuana Meds Allergies Allergy/AdvReac Type Severity Reaction Status Date / Time No Known Allergies Allergy Verified 12/01/24 09:54 [No Known Allergies*] Exam Height,Weight and Vital Signs: Height 5 ft 7 in Weight 48.988 kg Vital Signs Temp Pulse Resp BP Pulse Ox O2 Del Method 12/01/24 10:14 98.7 F 77 16 100/68 100 Room Air Pertinent Lab Results Pertinent Lab Results: Laboratory Tests 09/19/24 04:19 WBC 5.7 Hgb 11.2 L Hct 31.7 L Plt Count 232 Sodium 144 Potassium 3.3 Chloride 110 H Carbon Dioxide 26 BUN 12 Creatinine 0.72 Lab Results 12/01/24 Range/Units 09:55 Urine Test NEGATIVE (NEGATIVE) Airway Mallampati Class: II TM Dist: >3cm Neck ROM: Full Loose/Missing/Broken Teeth: Yes (Missing some teeth back. Denies broken or loose teeth) Heart: RRR Lungs: CTAB Assessment and Plan Assessment Anesthesia Assessment: Anesthesia Plan Discussed and Chart Reviewed Final Anesthetic Review Family History of Problems with Anesthesia: No History of Problems with Anesthesia: No NPO: Yes ASA Class: II Final Preanesthetic Review: No Changes in Pt Med Stat, Meds/Allgs Chart Reviewed, Consent Obtained/Reviewed and Anes Risks/Benef Reviewed Patient Risk: Low Procedure Risk: Low Assessment/Block/Sedation in SS: Assess/Block/Sedation-SS Anesthetic Plan Anesthetic Plan: GA Disposition: Standard PACU
[2024-12-01] VITALS (7 sets, daily range): BP systolic 99–116; BP diastolic 56–75; PULSE 71–92; RESP 14–18; TEMP 36.9–37.1; O2SAT 100; BMI 16.6
[2024-12-01 10:11] LABS: UPreg QC Valid YES; Urine Pregnancy NEGATIVE (NEGATIVE)
--- NOTE | 2024-12-01 10:12 | MHC.SHP ---
Pre-Procedural Eval Section A - 24 Hr Update-Section A only Date of Service: 12/01/24 Section B - Complete if H&P > 30 days Chief Complaint: Calculus of gallbladder without cholecystitis with Details of Present Illness: She has had a periodic right upper quadrant pain for several months, with gallstones on ultrasound Relevant Family History (Specify if Yes): No Relevant Social History: None Present Medications: see Short Stay Collaborative assessment Medical History: No relevant PMH History of Previous Operations: No relevant previous surgery Allergies: Allergies Allergy/AdvReac Type Severity Reaction Status Date / Time No Known Allergies Allergy Verified 12/01/24 09:54 [No Known Allergies*] Review of Systems Sugical H&P ROS: Negative: Constitution, Cardiovascular, Respiratory and Genitourinary Exam Surgical H&P Exam: Normal: Heart, Normal: Lungs and Normal: Abdomen Plan Diagnosis/Plan: Unchanged I have reviewed the history and physical and performed a pertinent physical examination on my patient. No changes have occurred unless specified. Time Spent With Patient Time: Total time managing care of this patient today ____ minutes.
[2024-12-01] MEDS: Lactated Ringers 1,000 ML 100 ML IVCONT (10:36)
--- NOTE | 2024-12-01 12:21 | W.PM.OPN ---
Operative Note Operative Note Date of Service: 12/01/24 Narrative: Preop diagnosis: Symptomatic gallstones Postop diagnosis: The same Procedure: Laparoscopic cholecystectomy Surgeon: Bunny Cobb MD office services assistant: RONALDO Juarez The patient is a 24 year old female with gallstones and periodic right upper quadrant pain. She wanted to proceed with cholecystectomy. She understood the technique of laparoscopic cholecystectomy as well as the risks, benefits, and alternatives. She was brought to the operating room. She was placed supine under general anesthesia via endotracheal tube. The abdomen was prepped and draped in the usual sterile fashion. A surgical time-out was done. The patient received Cefotan 2 g IV preoperatively I made a short supraumbilical incision with a blade 15. This carried down through the full-thickness of the skin and subcutaneous fat. The fascia was incised. The peritoneum was entered. Through this incision a Zaidi port was introduced. Pneumoperitoneum was introduced to a pressure of 15 mm Hg. From here on the rest of the procedure was done under vision with the 10 mm 0 degree laparoscope With laparoscopic visualization I inserted a 5/12 mm port in the epigastric area below the subcostal margin. Two 5 mm ports introduced a small incision below the subcostal margin along the anterior axillary line and the midclavicular line. Graspers were placed through these working ports. The patient was placed in head up and [id number] position. The gallbladder was seen. This was not inflamed. We are able to apply a grasper at the fundus and this was used to retract the gallbladder cephalad. Another grasper was placed on the pouch of the gallbladder and this was used to retract the gallbladder laterally. At this point therefore the gallbladder was being retracted in a cephalad and lateral fashion to put the area of the cystic duct on stretch. I carefully dissected the neck of the gallbladder using the [place] dissector to tease off peritoneum until was able to clearly define the cystic duct. I continued to dissect with the [place] dissector until was able to clearly define the influence of the neck of the gallbladder with the cystic duct. By doing so we are able to achieve a critical view of the hepatocystic triangle. The cystic artery was seen adjacent to this. There were no other structures. I therefore applied clips on the cystic duct with 2 clips being applied distally. The cystic duct was transected between clips with Endo scissors. I carefully dissected the cystic artery some more and then applied clips with 2 clips being applied distally. The cystic artery was transected between clips with Endo scissors. With traction on the gallbladder away from the liver bed, I then proceeded to use the electrocautery spatula to carefully divide the thin hilum. I then incised the peritoneum of the gallbladder using electrocautery and did a combination of blunt dissection with the tip of the spatula as well as electrocautery itself to carefully define a plane of dissection between the gallbladder wall and the liver bed. I continued with this manner of dissection until the entire gallbladder completely from the liver bed. There was note of a small tear at the fundus with a little bit some spillage of bile. We retrieved the gallbladder using an endobag through the umbilical incision. I reinserted all ports and re-insufflated. Examined the subhepatic space. There was no evidence of any bleeding or any bile leak. The clips appeared intact. I irrigated a little bit. I examined all 4 quadrants laparoscopically. There were no evidence of any other pathology, nor any signs of any bowel injury I therefore removed all ports under vision with the laparoscope. I removed the umbilical port last. I desufflated prior to removing this last port I then closed the fascia of the umbilical incision with the [id number] Polysorb 0 stitch Skin closure was achieved on all incisions using Polysorb 4-0 subcuticular running sutures All incisions were infiltrated with Marcaine 0.5% for postop analgesia. Dressings were applied. The procedure was completed The patient tolerated the procedure well. There were no immediate complications. Initial and final counts of sponges and instruments were correct. Estimated blood loss was less than 20 cc The patient was extubated without difficulty and transferred to the recovery room with stable vital signs.
[2024-12-01] MEDS: oxyCODONE HCl Immed Release 5 MG TABLET PO (13:08)
== END 2024-12-01 14:19 | disposition home or self-care (01) ==
PROVIDERS: Nurse Practitioner; PCP Student in an Organized Health Care Education/Training Program; Visit Provider Surgery
PROC: 0FT44ZZ Resection of Gallbladder, Percutaneous Endoscopic Approach (ICD-10-PCS; CPT 47562; principal; 2024-12-01 11:00)
DX: K80.10 Calculus of gallbladder with chronic cholecystitis without obstruction (principal); Z79.899 Other long term (current) drug therapy
CPT/HCPCS: 47562; 81025; 88304; J0131; J1100; J1885; J2003; J2250; J2405; J2704; J2795; J3010

== ENCOUNTER → 2024-12-01 09:49 | Outpatient (BNV) | payer MEDICAID, SELFPAY | PROVIDERS: PCP Student in an Organized Health Care Education/Training Program; Visit Provider Surgery | DX: K80.10 Calculus of gallbladder with chronic cholecystitis without obstruction (principal) | CPT/HCPCS: 47562 ==

== ENCOUNTER 2025-02-22 | Outpatient (REF) | payer MEDICAID, SELFPAY ==
[2025-02-27 17:58] LABS: C. trachomatis RNA TMA NOT DETECTED (NOT DETECTED); N. gonorrhoeae RNA TMA NOT DETECTED (NOT DETECTED); Trichomonas (NAAT) NOT DETECTED (NOT DETECTED)
--- OUTSIDE RECORDS SUMMARY | 2025-02-28 12:10 | XMS_ITS | Clinical Summary ---
Author Organization [employer] Address [address] [place] [address] [address] [place] [address] Care Team Providers Care Veterinary Nurse Name Role Phone Trudi Pereira MD Primary Care Pro vider Allergies No known active allergies Medications acetaminophen (Tylenol) 500 MG tablet take 1-2 tablet by oral route every 6 - 8 hours as needed not to exceed 8 tablets per 24hrs as needed for pain 07/11/20 20 Active medroxyPROGESTERon e (Depo-Provera) 150 MG/ML injection Inject 1 mL (150 mg) into the muscle every 3 (three) months. 1 mL 3 02/23/20 25 Active famotidine (Pepcid) 20 MG tablet Take 1 tablet (20 mg) by mouth if needed at bedtime for heartburn. 90 tablet 09/23/19 24 025 Discontin ued(Other ) Calcium Antacid 500 MG chewable tablet CHEW 1 TABLET BY MOUTH TWICE DAILY 60 tablet 1 10/15/19 24 025 Discontin ued(Other ) norethindrone (Ortho Micronor) 0.35 MG tabletIndications: Family planning Take 1 tablet (0.35 mg) by mouth Once per day. 90 tablet 3 06/30/20 24 025 Discontin ued(Other ) ondansetron ODT (Zofran-ODT) 4 MG disintegrating tablet Take 4 mg by mouth every 8 (eight) hours if needed. 06/16/20 20 025 Discontin ued(Other ) fluticasone (Flonase Allergy Relief) 50 MCG/ACT nasal spray Administer 2 sprays into affected nostril(s) at bed time. 10/15/19 21 025 Discontin ued(Other ) ferrous sulfate 325 (65 Fe) MG tablet Take 325 mg by mouth. 08/14/20 22 025 Discontin ued(Other ) omeprazole OTC (PriLOSEC OTC) 20 MG EC tablet Take 1 tablet (20 mg) by mouth before breakfast. Do not crush, chew, or split. 30 tablet 3 12/08/19 25 025 Discontin ued(Other ) Hospital, Clinic, or Other Facility Administered Medication Ordered Dose Route Frequency Start Date End Date Status medroxyPROGESTERone (Depo-Provera) injection 150 mgIndications:Encounter for initial prescription of injectable contraceptive 150 mg IM Once 02/22/2025 02/22/2025 Ended Active Problems Problem Noted Date Diagnosed Date Underweight (BMI < 18.5) 01/31/2025 Weight loss 01/31/2025 Left breast mass 01/31/2025 Family history of breast cancer 01/31/2025 GERD (gastroesophageal reflux disease) Gastritis 05/27/2023 Healthcare maintenance 05/27/2023 Kidney stone 04/20/2023 Resolved Problems Problem Noted Date Diagnosed Date Resolved Date Allergic rhinitis 04/20/2023 05/27/2023 Encounters Date Type Department Care Team Description 02/22/2025 11:00 AM EDT Procedure Visit [address] [address] Josefina Lyn CNM Encounter for initial prescription of injectable contraceptive (Primary Dx); Nexplanon removal; Routine cervical smear; Screening examination for venereal disease 02/22/2025 Travel 02/21/[address] [address] Josefina Lyn CNM chart prep 01/31/2025 9:45 AM EDT Office Visit [address] [address] Trudi Pereira MD Annual physical exam (Primary Dx); Dietary counseling; Exercise counseling; Mass of right breast, unspecified quadrant; Underweight; Underweight (BMI < 18.5); Weight loss; Mass of upper inner quadrant of left breast; Family history of breast cancer 01/31/2025 Travel 01/30/2025 Telephone [facility] [address] [place] [address] Trudi Pereira MD Chart Prep 01/01/2025 Orders Only [facility] [address] [place] [address] Ivy Hamilton DO Periumbilical mass (Primary Dx) 12/13/2024 Telephone [facility] [address] [place] [address] Trudi Pereira MD 12/07/2024 9:00 AM EDT Office Visit [facility] [address] [place] [address] Ivy Hamilton DO Epigastric pain (Primary Dx); S/P laparoscopic cholecystectomy; Periumbilical mass 12/07/2024 Telephone [facility] [address] [place] [address] Ivy Hamilton DO 12/07/2024 Travel 12/01/2024 Orders Only GENERIC EXTERNAL DATA DEPARTMENT Provider, Generic External Data from Last 3 Months Immunizations Immunization Administration Dates Next Due HPV, Quadrivalent 06/27/2014,06/20/2013,04/18/20 13 Hep A, ped/adol, 2 dose 12/24/2020,02/02/2017 Hep B, Adolescent or Pediatric 2002,2001,2002 IPV 03/13/2006, 4,2002,07/13,2002 Influenza injectable quadriv alent preservative free 05/26/2023,06/16/2022,06/27/2014 Influenza, Split (incl. lolis fied surface antigen) 06/20/2013 MMR 03/13/2006,03/12/2003 Meningococcal MCV4P ACYW-135 12/24/2020,04/18/20 13 Tdap 05/05/2022,04/06/2021,04/18/2013 Varicella 04/18/2013,03/12/2003 Family History Medical History Relation Name Comments Breast cancer Maternal Grandmother Breast cancer Mother's Sister Seizures Sister Relation Name Status Comments Maternal Grandmother Mother's Sister Sister Social History Tobacco Use Types Packs/Day Years Used Date Smoking Tobacco: Never Smokeless Tobacco: Never Tobacco Cessation:Counseling Given: Not Answered Alcohol Use Standard Drinks/Week Comments Not Currently 0 (1 standard drink = 0.6 oz pur e alcohol) Depression Answer Date Recorded Patient Health Questionnaire-9 Score 0 01/31/2025 Patient Health Questionnaire-9 Score 0 01/31/2025 Last PHQ-9: Questionnaire Data Not on file 0 01/31/2025 Housing Stability Answer Date Recorded What is [...] Date Recorded Patient Health Questionnaire-2 Score 0 01/31/2025 Internet Access Answer Date Recorded Internet Access Q1 Yes 04/24/2024 Internet Access Q2 Not on file 04/24/2024 Comments Unknown Intention Date Recorded No desire to become (finding) 0 02/22/2025 Sex and Gender Information Value Date Recorded Sex Assigned at Female 06/22/2022 10:17 AM EDT Legal Sex Female 10:17 AM EDT Gender Identity Female 06/22/2022 10:17 AM EDT Sexual Orientation Straight 06/22/2022 10 :17 AM EDT Last Filed Vital Signs Vital Sign Reading Time Taken Comments Blood Pressure 110/80 02/22/2025 10:59 AM EDT Pulse 91 02/22/2025 10:59 AM EDT Temperature 36.8 C (98.2 F) 02/22/2025 10:59 AM EDT Respiratory Rate 16 02/22/2025 10:59 AM EDT Oxygen Saturation 99% 02/22/2025 10:59 AM EDT Inhaled Oxygen Concentration - - Weight 49.5 kg (109 lb 3.2 oz) 02/22/2025 10:59 AM EDT Height 170.2 cm (5' 7 ) 02/22/2025 10:59 AM EDT Body Mass Index 17.1 02/22/2025 10:59 AM EDT Plan of Treatment Upcoming Encounters Date Type Department Care Team (Late st Contact Info) Description 04/05/2025 1:30 PM EDT Office Visit [facility] [address] [place] [address] [phone] Trudi Pereira MD [address] [place] [address] [phone] 05/10/2025 1:00 PM EDT Clinical Support [facility] [address] [place] [address] [phone] Health Maintenance Due Date Last Done Comments Alcohol/Substance Use Screening 2014 Meningococcal B Vaccine (1 of 2 - Standard) 2018 Hepatitis C Screening 2020 Pap Smear 2023 COVID-19 Vaccine ( season) 2024 05/05/2021, 01/28/2021 SDOH Screening 02/14/2025 02/15/2024 Influenza Vaccine (#1) 2025 , 06/16/2022, 06/27/2014, Additional history exists Depression Screening 01/31/2026 01/31/2025, 02/01/20 Disability Screening 01/31/2026 01/31/2025 Chlamydia and Gonorrhea Screening 02/22/2026 02/22/2025, 12/24/2020, 08/01/2020, Additional history exists Family Planning (PISQ) 02/22/2026 02/22/2025 Tobacco Screening 02/22/2026 02/22/2025 DTaP/Tdap/Td Vaccines (8 - Td or Tdap) [...] Years) and At-Risk Patients (6 to 49) Years Aged Out No longer eligible based on patient's age to complete this topic RSV under 20 months Aged Out No longe r eligible based on patient's age to complete this topic Rotavirus Vaccines Aged Out No longer eligible based on patient's age to complete this topic Procedures Procedure Name Priority Date/Time Associated Diagnosis Comments CHLAMYDIA/N. GONORRHOEAE AND T. VAGINALIS RNA, QUAL,TMA Routine 02/22/2025 11:27 AM EDT Screening examination for venereal disease HI REMOVAL NON-BIODEGRADABLE DRUG DELIVERY IMPLANT Routine 02/22/2025 11:00 AM EDT Nexplanon removal GROSS AND MICROSCOPIC LEVEL 3 Routine 12/01/2024 12:13 PM EDT HCG, QL, URINE Routine 12/01/2024 9:55 AM EDT HIV 1/2 ANTIGEN/ANTIBODY, FOURTH GENERATION W/RFL Routine 08/01/2020 11:33 AM EST from Last 3 Months or Most Recently Relevant to Health Maintenance Results * STI testing add on (NG, CT, Trich) (02/22/2025 11:27 AM EDT) Trichomonas (NAAT) NOT DETECTED NOT DETECTED [facility] Comment:The analytical perfo rmance characteristics of thisassay have been determined by [employer]. Themodifications have not been cleared or approved bythe FDA. This assay has been validated pursuant to theIA regulations and is used for clinical purposes.For additional information, please refer tohttp://education.[employer]/faq/Trichomonastma(This link is being provided for information/educational purposes only.)THIS TEST WAS PERFORMED AT:[employer] [address] [id number] DAO MD CTNG Ref Lab NOT DETECTED NOT DETECTED [facility] NG Ref Lab NOT DETECTED NOT DETECTED [facility] ThinPrep vial Cervix uteri structure / Unknown 02/22/2025 11:27 AM EDT 02/26/2025 7:55 AM EDT Narrative [facility] - 02/27/2025 5:58 PM EDT Collection Date: [id number] by: BARBI An: Cervix us Josefina Lyn CNM LAB CYTOLOGY ORDERABLES F inal Result [facility] [address] [place] [phone] * HI REMOVAL NON-BIODEGRADABLE DRUG DELIVERY IMPLANT (02/22/2025 11:00 AM EDT) Josefina Valenzuela CNM - 02/22/2025 11:00 AM EDT Josefina Lyn CNM 02/22/2025 11:44 AM Insertion/Removal of Contraceptive Capsule Date/Time: 02/22/2025 11:00 AM Performed by: Josefina Lyn CNM Authorized by: Josefina Lyn CNM Confirmed correct patient, procedure, site, and patient consented: Yes Participating Staff: Josefina Lyn CNM Consent: Consent obtained: Verbal and written Consent given by: Patient Procedural risks and benefits discussed: Yes Patient questions answered: yes Patient agrees, verbalizes understanding, and wants to proceed: yes Instructions and paperwork completed: yes Indication: Indication: insertion of non-biodegradable drug delivery implant Pre-procedure: Pre-procedure timeout performed: yes Prepped with: povidone-iodine Local anesthetic: 2% 2ml lidocaine. Procedure: Procedure: Removal Small stab incision was made in arm: yes Left/right: Left Site was closed with steri-strips and pressure bandage applied: yes Josefina Lyn CNM IN CLINIC/BEDSIDE ORDERAB LES Final Result * Gross and Microscopic Level 3 (12/01/2024 12:13 PM EDT) 12/01/2024 12:1 3 PM EDT 12/01/2024 1:09 PM EDT [facility] - 12/04/2024 12:26 PM EDT ----- ------- Name: Altagracia Shane Age/Sex: 24/F [facility] 2000 [id number] [id number] Attend Dr: Bunny Cobb MD Re12/01/24 Status: [facility] Location: [facility] [[email or web address] Disch: ----- ------- SPEC : [id number] RECD: 12/01/24-1308 STATUS: RADHA PACHECO NUM: [id number] [place]: 12/01/24-[address] [facility] [address]: Bunny Cobb MD ENTERED: 12/01/24 TYPE: Surgical OTHR DR: Trudi Pereira MD ORDERED: Gross Micro L3 Diagnosis Gallbladder, cholecystectomy: Chronic cholecystitis with cholelithiasis. Clinical History Gallstones Microscopic Description Microscopic sections reviewed. Material Received Gallbladder Gross Description Received in formalin labeled gallbladder is an intact gallbladder measuring 7.6 x 3.2 x 2.7 cm. The outer surface is blue pink and smooth with a adherent fibrous tissue. The cystic duct has been clamped shut. No periductal lymph node is identified. Opening the specimen reveals that the lumen contains a copious amount of cruz green colored bile and numerous multifaceted yellow carroll choleliths ranging from 0.3-0.6 cm in diameter. The mucosal surface is pink-carroll in color with a velvety appearance. The wall of the specimen measures 0.1 cm in average thickness. [employer] Designer sections of the cystic duct, neck and body of the specimen are submitted for microscopic examination, 3 pieces in cassette A1. ([facility]) Copies To: Bunny Cobb MD [facility] [address] [place] [address] Trudi Pereira MD [address] [place] [address] ----- ------- Signed (signature on file) Kia Gruber 12/04/24 1226 ----- ------- END OF REPORT us Generic External Data Provider LAB CYTOLOGY ORDE RABLES Final Result Performing Organization Address [facility] Co de Phone Number [facility] [address] [place] [phone] * HCG, Qualitative, Urine (12/01/2024 9:55 AM EDT) Urine NEGATIVE NEGATIVE [facility] Comment:This test was develo ped to detect early . Falsenegative results may occur after the 5th - 7th week ofpregnancy when using this test method. If clinicallyindicated, consider a serum hCG. 12/01/2024 9:55 AM EDT 12/01/2024 10:05 AM EDT us Generic External Data Provider LAB URINE ORDERAB LES Final Result Performing Organization Address [facility] Co de Phone Number [facility] [address] [place] [address] [phone] * HIV 1/2 ANTIGEN/ANTIBODY,FOURTH GENERATION W/RFL (08/01/2020 11:33 AM EST) Pathologist [facility] HIV-1/2 ANTIGEN AND ANTIBODIES, 4TH GENERATION W/ REFLEX TNP [facility] Comment: TEST NOT PERFORMED No suitable specimen received. 08/01/2020 11:3 3 AM EST us Jerome Dimas [employer]IC LAB BLOOD ORDERABLES Final Result Performing Organization Address City/[facility]/ZIP Co de Phone Number [facility] [address] [place] [address], from Last 3 Months or Most Recently Relevant to Health Maintenance Insurance [employer] C3 Care Teams Veterinary Nurse Relationship Specialty Start Date End Date Trudi Pereira MD [address] [place] [phone] PCP - General Internal Medicine 06/01/23
--- OUTSIDE RECORDS SUMMARY | 2025-02-28 12:10 | XMS_ITS | Clinical Summary ---
Author Organization [facility] Address [address] [place] [phone] Care Team Providers Care Director Database Name Role Phone Unknown Primary Care Provider [phone] Allergies No known active allergies Medications cephalexin (KEFLEX) 500 MG capsule Take 1 capsule (500 mg total) by mouth 3 (three) times a day. Take as directed or until you run out 30 capsule 0 Active ondansetron (ZOFRAN-ODT) 4 MG disintegrating tablet Take 1 tablet (4 mg total) by mouth 3 times daily (every 8 hours) as needed for nausea or vomiting. Place tablet on tongue to dissolve. 10 tablet 0 Active Social History Tobacco Use Types Packs/Day Years Used Date Smoking Tobacco: Never Assessed Comments Unknown Sex and Gender Information Value Date Recorded Sex Assigned at Not on file Legal Sex Female 6:52 PM EDT Gender Identity Not on file Sexual Orientation Not on file Last Filed Vital Signs Vital Sign Reading Time Taken Comments Blood Pressure 96/66 07/23/2020 12:56 PM EST Pulse 97 07/23/2020 12:56 PM EST Temperature 36.4 C (97.6 F) 07/23/2020 12:56 PM EST Respiratory Rate 16 07/23/2020 12:56 PM EST [...] series) 2021 Pap Smear (Ages 21-65) 2023 COVID-19 Vaccine (1 - 2023-2 5 season) 2024 Influenza Vaccine 03/23/2025 Pneumococcal Vaccine: Pediat michael (0-5 Years) and At-Risk Patients (6 to 49 Years) Aged Out No longer eligible b ased on patient's age to complete this topic Insurance [facility] Care Teams Director Database Relationship Specialty Start Date End Date Unknown Unknow Provider Address PCP - General 07/23/20
== END 2025-02-22 00:01 | disposition home or self-care (01) ==
LOC: HO.HHCLNP
PROVIDERS: Advanced Practice Midwife; Visit Provider Internal Medicine
DX: Z12.4 Encounter for screening for malignant neoplasm of cervix (principal); Z11.3 Encounter for screening for infections with a predominantly sexual mode of transmission
CPT/HCPCS: 87491; 87591; 87661; 88175

== ENCOUNTER 2025-07-02 16:27 | Outpatient (REF) | payer MEDICAID, SELFPAY ==
--- OUTSIDE RECORDS SUMMARY | 2025-07-02 14:20 | XMS_ITS | Encounter Summary ---
Author Organization [employer] Address [address] [facility] [address] [facility] [place] [address] Care Team Providers Care Assisted Living Home Director Name Role Phone Trudi Pereira MD Primary Care Pro vider Reason for Visit * Reason Comments UTI Encounter Details Date Type Department Care Team ([facility] Contact Info) Description 07/02/2025 2:20 PM EST Office Visit [facility] [address] [place] [phone] Vaginal discharge (Primary Dx); Acute cystitis without hematuria Social History Tobacco Use Types Packs/Day Years Used Date Smoking Tobacco: Never Smokeless Tobacco: Never Alcohol Use Standard Drinks/Week Comments Not Currently 0 (1 standard drink = 0.6 oz pur e alcohol) Depression Answer Date Recorded Patient Health Questionnaire-9 Score 7 05/02/2025 Patient Health Questionnaire-9 Score 7 05/02/2025 Last PHQ-9: Questionnaire Data Not on file 0 05/02/2025 Housing Stability Answer Date Recorded What is [...] Answer Date Recorded Patient Health Questionnaire-2 Score 2 05/02/2025 Internet Access Answer Date Recorded Internet Access [...] Sign Reading Time Taken Comments Blood Pressure 102/61 07/02/2025 1:09 PM EST Pulse 71 07/02/2025 1:09 PM EST Temperature 36.7 C (98 F) 07/02/2025 1:09 PM EST Respiratory Rate 12 07/02/2025 1:09 PM EST Oxygen Saturation 100% 07/02/2025 1:09 PM EST Inhaled Oxygen Concentration - - Weight 54.9 kg (121 lb) 07/02/2025 1:09 PM EST Height - - Body Mass Index 18.95 02/22/2025 10:59 AM EDT documented in this encounter Plan of Treatment Scheduled Orders Name Type Priority Associated Diagnoses Orde r Schedule Bacterial Vaginosis Panel Microbiology Routine Vaginal discharge Ordered: 07/02/2025 Chlamydia/N. Gonorrhoeae RNA, TMA, Vaginal Microbiology Routine Vaginal discharge Ordered: 07/02/2025 Urine Culture Routine Microbiology Routine Acute cystitis without hematuria Ordered: 07/02/2025 Urinalysis Complete Lab Routine Acute cystitis without hematuria Expected: 07/02/2025, Expires: 07/02/2026 documented as of this encounter Procedures Procedure Name Priority Date/Time Associated Diagnosis Comments POCT , URINE Routine 07/02/2025 2:21 PM EST Vaginal discharge POCT URINALYSIS DIPSTICK Routine 07/02/2025 2:15 PM EST Vaginal discharge documented in this encounter Results * POCT Urine (07/02/2025 2:21 PM EST) Preg Test, Ur Negative Negative, Indeterminate, None Detected, Invalid, Specimen unsatisfactory for evaluation, Weakly Positive, 2+ QC Media Lot # [id number] Lot# Expiration Date 13,127 Urine 07/02/2025 2:21 PM EST [facility] POINT OF CARE TEST ENTER/EDIT ORDERABLES Final Result * (ABNORMAL) POCT Urinalysis (07/02/2025 2:15 PM EST) Color, UA Yellow Clarity, UA Cloudy Glucose, UA Negative Bilirubin, UA Negative Ketones, UA Positive Comment:Trace Spec Grav, UA 1.020 Blood, UA Positive(A) Negative, None Detected Comment:Large pH, UA 7.5 Protein, UA Comment:100mg Urobilinogen, UA 1.0 Leukocytes, UA Comment:small Appearance, UA other QC Media Lot # [id number] Lot# Expiration Date 93,026 Urine (Urine, Random) 07/02/2025 2:15 PM EST Result [facility] POINT OF CARE TEST ENTER/EDIT ORDERABLES Final Result documented in this encounter Visit Diagnoses Diagnosis Vaginal discharge- Primary Leukorrhea, not specified as infective Acute cystitis without hematuria documented in this encounter Additional Health Concerns Assessment Noted Time PHQ-9 Depression Total Score: 7 05/02/20 25 8:18 AM EDT documented as of this encounter Care Teams Assisted Living Home Director Relationship Specialty Start Date End Date Trudi Pereira MD [address] [place] [address] PCP - General Internal Medicine 06/01/23 documented as of this encounter
--- OUTSIDE RECORDS SUMMARY | 2025-07-02 18:02 | XMS_ITS | Encounter Summary ---
Author Organization [facility] [employer] Address [address] [place] [address] 7 [place] [address] Care Team Providers Care Painter Drum Name Role Phone Maryann Vásquez Primary Care Provider Trudi Will MD Primary Care Pro vider Encounter Details Date Type Department Care Team (Late st Contact Info) Description 09/11/2022 Orders Only [facility] [address] [place] [address] Venessa Dunaway LPN Social History Tobacco Use Types Packs/Day Years Used Date Smoking Tobacco: Never Assessed Comments Unknown Sex and Gender Information Value Date Recorded Sex Assigned at Female 06/22/2022 10:17 AM EDT Legal Sex Female 10:17 AM EDT Gender Identity Female 06/22/2022 10:17 AM EDT Sexual Orientation Straight 06/22/2022 10 :17 AM EDT documented as of this encounter Plan of Treatment Not on file documented as of this encounter Visit Diagnoses Not on filedocumented in this encounter Care Teams Painter Drum Relationship Specialty Start Date End Date Maryann Vásquez FNP PCP - General Family Medicine 06/30/21 05/31/23 Trudi Pereira MD [address] [place] [phone] PCP - General Internal Medicine 06/01/23 documented as of this encounter
--- OUTSIDE RECORDS SUMMARY | 2025-07-02 18:02 | XMS_ITS | Encounter Summary ---
Author Organization [employer] Address [address] [place] [address] Care Team Providers Care School Transportation Director Name Role Phone Trudi Pereira MD Primary Care Pro vider Encounter Details Date Type Department Care Team (Latest Contact Info) Description 07/02/2025 Travel Social History Tobacco Use Types Packs/Day [...] documented as of this encounter Care Teams School Transportation Director Relationship Specialty Start Date End Date Trudi Pereira MD [address] [place] [address] PCP - General Internal Medicine 06/01/23 documented as of this encounter
--- OUTSIDE RECORDS SUMMARY | 2025-07-02 18:02 | XMS_ITS | Clinical Summary ---
Author Organization [employer] Address [address] [place] [address] 7t [place] [address] Care Team Providers Care Visual Display Manager Name Role Phone Trudi Pereira MD Primary Care Pro vider Allergies No known active allergies Medications * This document contains information received from the source organization and may not represent a complete record from that organization. acetaminophen (Tylenol) 500 MG tablet take 1-2 tablet by oral route every 6 - 8 hours as needed not to exceed 8 tablets per 24hrs as needed for pain 07/11/2020 Active medroxyPROGESTE Pablo (Depo-Provera) 150 MG/ML injection Inject 1 mL (150 mg) into the muscle every 3 (three) months. 1 mL 3 02/22/2025 Active nitrofurantoin, macrocrystal-mo nohydrate, (Macrobid) 100 MG capsule Take 1 capsule (100 mg) by mouth 2 times daily for 5 days. 10 capsule 07/02/2025 Active Hospital, Clinic, or Other Facility Administered Medication Ordered Dose Route Frequency Start Date End Date Status medroxyPROGESTERone (Depo-Provera) injection 150 mgIndications:Encoun ter for initial prescription of injectable contraceptive 150 mg IM See admin instructions 05/10/2025 Active Active Problems Problem Noted Date Diagnosed Date Moderate depressive disorder 04/26/2025 Underweight (BMI < 18.5) 01/31/2025 Weight loss 01/31/2025 Left breast mass 01/31/2025 Family history of breast cancer 01/31/2025 GERD (gastroesophageal reflux disease) 3 Gastritis 05/27/2023 Healthcare maintenance 05/27/2023 Kidney stone 04/20/2023 Resolved Problems Problem Noted Date Diagnosed Date Resolved Date Allergic rhinitis 04/20/2023 05/27/2023 Encounters * This document contains information received from the source organization and may not represent a complete record from that organization. Date Type Department Care Team Description 07/02/2025 2:20 PM EST Office Visit [facility] [address] [place] [phone] Vaginal discharge (Primary Dx); Acute cystitis without hematuria 07/02/2025 Travel 05/10/2025 Orders Only [facility] [address] [place] [phone] Josefina Bonilla CNM Encounter for initial prescription of injectable contraceptive (Primary Dx) 04/24/2025 Telephone [facility] [address] [place] [address] [phone] Trudi Pereira MD CHART PREP 04/04/[address] [phone] Trudi Pereira MD Appointment Confirmation 04/04/[address] [phone] Trudi Pereira MD chart prep from Last 3 Months Immunizations Immunization Administration [...] (121 lb) 07/02/2025 1:09 PM EST Height 170.2 cm (5' 7 ) 02/22/2025 10:59 AM EDT Body Mass Index 18.95 02/22/2025 10:59 AM EDT Plan of Treatment Health Maintenance Due Date Last Done Comments Alcohol/Substance Use Screening 2014 Meningococcal B Vaccine (1 of 2 - Standard) 2018 Hepatitis C Screening 2020 SDOH Screening 02/14/2025 02/15/2024 COVID-19 Vaccine ( season) 2025 05/05/2021, 01/28/2021 Influenza Vaccine (#1) 2025 , 06/16/2022, 06/27/2014, Additional history exists Disability Screening 01/31/2026 01/31/2025 Chlamydia and Gonorrhea Screening 02/22/2026 02/22/2025, 12/24/2020, 08/01/2020, Additional history exists Family Planning (PISQ) 02/22/2026 02/22/2025 Pap Smear 02/22/2026 02/22/2025 Tobacco Screening 02/22/2026 02/22/2025 Depression Screening 05/02/2026 05/02/2025, 05/02/20 DTaP/Tdap/Td Vaccines (8 - Td or Tdap) [...] Routine 07/02/2025 2:15 PM EST Vaginal discharge PAP SMEAR Routine 02/22/2025 11:27 AM EDT Routine cervical smear CHLAMYDIA/N. GONORRHOEAE AND T. VAGINALIS RNA, QUAL,TMA Routine 02/22/2025 11:27 AM EDT Screening examination for venereal disease HIV 1/2 ANTIGEN/ANTIBODY, FOURTH GENERATION W/RFL Routine 08/01/2020 11:33 AM EST from Last 3 Months or Most Recently Relevant to Health Maintenance Results * POCT Urine (07/02/2025 2:21 PM EST) Preg Test, Ur Negative Negative, Indeterminate, None Detected, Invalid, Specimen unsatisfactory for evaluation, Weakly Positive, 2+ QC Media Lot # [id number] Lot# Expiration Date 13,127 Urine 07/02/2025 2:21 PM EST [facility] POINT OF CARE TEST ENTER/EDIT ORDERABLES Final [...] Media Lot # [id number] Lot# Expiration Date Urine (Urine, Random) 07/02/2025 2:15 PM EST [facility] POINT OF CARE TEST ENTER/EDIT ORDERABLES Final Result * STI testing add on (NG, CT, Trich) (02/22/2025 11:27 AM EDT) Pathologist [facility] Trichomonas (NAAT) NOT DETECTED NOT DETECTED [facility] Comment:The analytical perfo rmance characteristics of thisassay have been determined by [employer]. Themodifications have not been cleared or approved bythe FDA. This assay has been validated pursuant to theIA regulations and is used for clinical purposes.For additional information, please refer [email or web address].Glide/faq/Trichomonastma(This link is being provided for information/educational purposes only.)THIS TEST WAS PERFORMED AT:[facility] [place] [phone] DAO MD CTNG Ref Lab NOT DETECTED NOT DETECTED [facility] NG Ref Lab NOT DETECTED NOT DETECTED [facility] ThinPrep vial Cervix uteri structure / Unknown 02/22/2025 11:27 AM EDT 02/26/2025 7:55 AM EDT Narrative [facility] - 02/27/2025 5:58 PM EDT Collection Date: [id number] by: BARBI An: Cervix Josefina Bonilla CNM LAB CYTOLOGY ORDERABLES F inal Result [facility] [address] [place] [phone] * Pap Smear (02/22/2025 11:27 AM EDT) Swab Cervix uteri structure / Unknown 02/22/2025 11:27 AM EDT 02/26/2025 7:55 AM EDT Narrative [facility] - 03/02/2025 9:49 AM EDT ----- ------- Name: Altagracia Shane Age/Sex: 24/F : 2000 Unit#: [id number] Attend Dr: Trudi Perkins MD Re02/22/25 Status: DEP REF Location: HO.HHCLNP Disch: ----- ------- SPEC : [id number] RECD: 02/26/25 STATUS: RADHA PACHECO NUM: [id number] [place]: 02/22/25-[address]: JOSEFINA BONILLA CNM ENTERED: 02/26/25 SP TYPE: Pap Smr OTHR DR: ORDERED: Pap Smear, PAP path review Interpretation General Category: Epithelial cell abnormality. Adequacy: Endocervical component present. Interpretation: Atypical squamous cells of undetermined significance. Shift in vaginal uyen. Clinical Information LMP: 02/09/2025 Previous PAP test: Unknown date/findings Other history: Implantable control, routine cervical smear Material Received ThinPrep-Cervical PAP Disclaimer As of June 14, 2024, the technical services to include automated prescreening performed by the ThinPrep Imaging System, PAP screening and HPV testing will be performed at [facility] (CLIA #[id number]), [address] [place] [address]. Testing for HPV was performed using the [employer] system. The presence of HPV in the female genital tract is associated with a number of diseases, including cervical carcinoma. The HPV DNA high risk pool tests for HPV 31, 33, 35, 39, 45, 51, 52, 56, 58, 59, 66 and 68. The testing for HPV 16 and 18 genotypes has also been performed. A positive result indicates detection of nucleic acid sequences from one or more subtypes, whereas a negative result indicates such sequences were not detected. All professional services are performed by [facility] ([address] [place] [address]; ; CLIA #[id number]). The PAP Test is a screening procedure with the inherent possibility of both false negative and false positive results. Results should be interpreted in the context of historic and current clinical findings. Reliability of the PAP Test is enhanced by performing the test on a regular repetitive basis. ----- ------- Signed (signature on file) Buddy Ornelas MD 03/02/25 0949 ----- ------- END OF REPORT Josefina Bonilla CN LAB CYTOLOGY ORDERABLES F inal Result [facility] [address] [place] [phone] [phone] * HIV 1/2 ANTIGEN/ANTIBODY,FOURTH GENERATION W/RFL (08/01/2020 11:33 AM EST) Pathologist [facility] HIV-1/2 ANTIGEN AND ANTIBODIES, 4TH GENERATION W/ REFLEX [facility] Comment: TEST NOT PERFORMED No suitable specimen received. 08/01/2020 11:3 3 AM EST Jerome Dimas [facility] LAB BLOOD ORDERABLES Final Result [facility] [address] from Last 3 Months or Most Recently Relevant to Health Maintenance Insurance [facility] C3 Care Teams Visual Display Manager Relationship Specialty Start Date End Date Trudi Pereira MD [address] [place] [phone] PCP - General Internal Medicine 06/01/23
--- OUTSIDE RECORDS SUMMARY | 2025-07-02 18:02 | XMS_ITS | Clinical Summary ---
Author Organization [facility] Address [address] [place] [phone] Care Team Providers Care Ediscovery Project Manager Name Role Phone Unknown Primary Care Provider [phone] Allergies No known active allergies Medications cephalexin [...] Pap Smear (Ages 21-65) 2023 Influenza Vaccine 03/23/2025 COVID-19 Vaccine (1 - 2023-2 5 season) 2025 Pneumococcal Vaccine: Pediat michael (0-5 Years) and At-Risk Patients (6 to 49 Years) Aged Out No longer eligible b ased on patient's age to complete this topic Insurance [facility] Care Teams Ediscovery Project Manager Relationship Specialty Start Date End Date Unknown Unknow Provider Address PCP - General 07/23/20
[2025-07-02 18:04] LABS: Bacterial Vaginosis PCR POSITIVE (Negative); Candida Group PCR DETECTED (Not Detect); Candida glab krusei PCR NOT DETECTED (Not Detect); Trichomonas vaginalis PCR NOT DETECTED (Not Detect)
[2025-07-02 18:24] LABS: CT PCR NOT DETECTED (Not Detect.); NG PCR NOT DETECTED (Not Detect.)
== END 2025-07-02 16:28 | disposition home or self-care (01) ==
LOC: HO.HHCLNP 16:27
PROVIDERS: Visit Provider Nurse Practitioner Family
DX: Z20.2 Contact with and (suspected) exposure to infections with a predominantly sexual mode of transmission (principal); N30.00 Acute cystitis without hematuria; N89.8 Other specified noninflammatory disorders of vagina
CPT/HCPCS: 81515; 87086; 87088; 87186; 87491; 87591

== ENCOUNTER 2025-07-04 14:13 | Outpatient (REF) | payer MEDICAID, SELFPAY ==
--- OUTSIDE RECORDS SUMMARY | 2025-07-02 14:20 | XMS_ITS | Encounter Summary ---
Author Organization [employer] Address [address] [place] [address] Care Team Providers Care Ict Help Desk Technician Name Role Phone Trudi Pereira MD Primary Care Pro vider Reason for Visit * Reason Comments UTI Encounter Details Date Type Department Care Team ([facility] Contact Info) Description 07/02/2025 2:20 PM EST Office Visit [facility] [address] [place] [phone] Trudy Enciso FNP [address] [place] [address] Vaginal discharge (Primary Dx); Acute cystitis with hematuria; Bacterial vaginosis; Candidiasis; Routine screening for STI (sexually transmitted infection) Social History Tobacco Use Types Packs/Day Years [...] 10:59 AM EDT documented in this encounter Progress Notes * LUCIA Rosa - 07/02/2025 2:20 PM EST HECTOR Shane is a 25 y.o. female who presents for UTI. Reports burning sensation during urination for approximately 3 weeks prior to the visit - Onset of symptoms about 3 weeks ago - Symptoms present for about 3 days at the time of the encounter - No use of any medication for symptoms prior to the visit Sexual Health Concerns - Began sexual activity with a new partner approximately 2 months ago - Unprotected intercourse with new partner - Does not know partner's STI status Vaginal Discomfort - Used a cleaning product for vaginal hygiene as advised by mother - Noted abnormal sensation in the vaginal area after using the cleaning product - No use of similar products prior to this event Denies fever, chills , body aches, nausea, vomiting or sore throat Review of Systems Constitutional: Negative for chills and fever. Respiratory: Negative for cough, chest tightness, shortness of breath and wheezing. Cardiovascular: Negative for chest pain and palpitations. Genitourinary: Positive for dysuria and vaginal discharge. Negative for flank pain and pelvic pain. Psychiatric/Behavioral: Negative for suicidal ideas. Allergies[1] OBJECTIVE Vitals: 07/02/25 1309 BP: 102/61 BP Location: Left arm Patient Position: Sitting BP Cuff Size: Adult Pulse: 71 Resp: 12 Temp: 98 ??F (36.7 ??C) TempSrc: Oral SpO2: 100% Weight: 121 lb (54.9 kg) Bacterial Vaginosis Panel Component Ref Range & Units (hover) TRICHOMONAS VAGINALIS DETECTION BY PCR NOT DETECTED BACTERIAL VAGINOSIS DETECTION BY PCR POSITIVE Abnormal MILAD GROUP DETECTION BY PCR DETECTED Abnormal Milad glab krusei PCR NOT DETECTED Abnormal data POCT Urinalysis Color, UA Yellow Clarity, UA Cloudy Glucose, UA Negative Bilirubin, UA Negative Ketones, UA Positive Comment: Trace Spec Grav, UA 1.020 Blood, UA Positive Abnormal Comment: Large pH, UA 7.5 Protein, UA Comment: 100mg Urobilinogen, UA 1.0 Leukocytes, UA Comment: small Appearance, UA other Urine Culture Routine Collected 07/02/2025 13:52 Urine Culture Escherichia coli Quant > 100,000 cfu/mL Escherichia coli: Ampicillin >=32(R) Escherichia coli: Cefazolin (Urine) 2(S) Escherichia coli: Cefepime <=0.12(S) Escherichia coli: Ceftriaxone <=0.25(S) Escherichia coli: Ciprofloxacin >=4(R) Escherichia coli: Gentamicin <=1(S) Escherichia coli: Nitrofurantoin <=16(S) Escherichia coli: Trimethoprim/Sulfamethoxazole <=20(S) Specimen Source: Urine clean catch Physical Exam Vitals reviewed. Constitutional: General: She is not in acute distress. Appearance: Normal appearance. HENT: Head: Atraumatic. Cardiovascular: Rate and Rhythm: Normal rate and regular rhythm. Pulses: Normal pulses. Heart sounds: Normal heart sounds. No murmur heard. Pulmonary: Effort: Pulmonary effort is normal. Breath sounds: Normal breath sounds. No wheezing. Abdominal: Tenderness: There is no right CVA tenderness or left CVA tenderness. Neurological: Mental Status: She is alert and oriented to person, place, and time. Psychiatric: Mood and Affect: Mood normal. Behavior: Behavior normal. Assessment/Plan Problem List Items Addressed This Visit Acute cystitis with hematuria - Acute cystitis confirmed by positive urine test. - Prescribed nitrofurantoin for urinary tract infection. Urine sent for culture. Relevant Orders Urine Culture Routine (Completed) Urinalysis Complete Relevant Medications nitrofurantoin, macrocrystal-monohydrate, (Macrobid) 100 MG capsule Vaginal discharge - Primary Vaginal swab sent to lab for BV panel Patient positive for BV and candidiasis Relevant Orders Bacterial Vaginosis Panel (Completed) Bacterial vaginosis Positive BV. Prescribed metroNIDAZOLE (Flagyl) Relevant Medications metroNIDAZOLE (Flagyl) 500 MG tablet Candidiasis Positive for milad Prescribed terconazole (Terazol 3) 80 MG vaginal suppository Relevant Medications terconazole (Terazol 3) 80 MG vaginal suppository Routine screening for STI (sexually transmitted infection) Sexually transmitted infection (STI) screening and prevention: - Risk of sexually transmitted infections due to new sexual partner and unprotected intercourse. - Ordered laboratory tests for chlamydia, gonorrhea - Outstanding labs by PCP for HIV, hep C, hep B, syphillis and others, advised patient to complete these test to confirm status - Advised to abstain from unprotected intercourse with new partner until both have completed STI testing. - Recommended consistent condom use with any new sexual partner. Advised to inform partner toundergo STI testing. Relevant Orders Chlamydia/N. Gonorrhoeae RNA, TMA, Vaginal (Completed) POCT Urine (Completed) This note was drafted using Ambient (AI) technology. The patient/patient's guardian has been informed and has consented to the use of this technology: Yes No future appointments. [1] No Known Allergies documented in this encounter Plan of Treatment Not on file documented as of this encounter Procedures Procedure Name Priority Date/Time Associated Diagnosis Comments URINALYSIS, COMPLETE Routine 07/04/2025 2:23 PM EST Acute cystitis with hematuria POCT , URINE Routine 07/02/2025 2:21 PM EST Vaginal discharge POCT URINALYSIS DIPSTICK Routine 07/02/2025 2:15 PM EST Vaginal discharge BACTERIAL VAGINOSIS PANEL Routine 07/02/2025 1:52 PM EST Vaginal discharge CHLAMYDIA/N. GONORRHOEAE RNA, TMA, UROGENITAL Routine 07/02/2025 1:52 PM EST Vaginal discharge CULTURE, URINE, ROUTINE Routine 07/02/2025 1:52 PM EST Acute cystitis with hematuria documented in this encounter Results * (ABNORMAL) Urinalysis Complete (07/04/2025 2:23 PM EST) Color Urine Dark Yellow [facility] Appearance Urine Cloudy [facility] PH 6.0 5.0 - 9.0 [facility] Glucose Urine UA Negative Negative mg/dL [facility] Urine Blood Negative Negative [facility] Specific [place] - Urine 1.025 1.005 - 1.025 [facility] Urine Protein Trace Neg-Trace mg/dL [facility] Urine Ketones Trace Negative mg/dL [facility] Nitrite Urine Negative Negative [facility] Leukocyte Esterase Urine Negative Negative [facility] RBC Urine 0-2 0 - 2 /HPF [facility] Urine WBC 6-10(A) 0 - 5 /HPF [facility] Urine Squamous Epithelial Cell 11-20 0 - 2 /HPF [facility] Urine Bacteria 2+ None Seen [facility] Hyaline Casts, Urine 0-2 0 - 2 /LPF [facility] Urine (Urine, Random) 07/04/2025 2:23 PM EST 07/04/2025 4:00 PM EST us Trudy Okhipo TOUR MANAGER LAB URINE ORDERABLES Final Res ult [facility] [address] [place] [phone] * POCT Urine (07/02/2025 2:21 PM EST) Preg Test, Ur Negative Negative, Indeterminate, None Detected, Invalid, Specimen unsatisfactory for evaluation, Weakly Positive, 2+ QC Media Lot # [id number] Lot# Expiration Date 13,127 Urine 07/02/2025 2:21 PM EST Result [facility] POINT OF CARE TEST ENTER/EDIT ORDERABLES Final [...] (Urine, Random) 07/02/2025 2:15 PM EST Result [facility] POINT OF CARE TEST ENTER/EDIT ORDERABLES Final Result * Urine Culture Routine (07/02/2025 1:52 PM EST) Urine Urine specimen obtained by clean catch procedure / Unknown 07/02/2025 1:52 PM EST 07/02/2025 4:28 PM EST Comment:UACC Narrative [facility] - 07/04/2025 7:45 AM EST Escherichia coli Quant > 100,000 cfu/mL Escherichia coli: Ampicillin >=32(R) Escherichia coli: Cefazolin (Urine) 2(S) Escherichia coli: Cefepime <=0.12(S) Escherichia coli: Ceftriaxone <=0.25(S) Escherichia coli: Ciprofloxacin >=4(R) Escherichia coli: Gentamicin <=1(S) Escherichia coli: Nitrofurantoin <=16(S) Escherichia coli: Trimethoprim/Sulfamethoxazole <=20(S) Specimen Source: Urine clean catch Trudy Enciso [facility] MICROBIOLOGY - GENERAL ORD ERABLES Final Result [facility] [address] [place] [phone] * Chlamydia/N. Gonorrhoeae RNA, TMA, Vaginal (07/02/2025 1:52 PM EST) CT PCR NOT DETECTED Not Detect. [facility] Comment:A not detected test result does not exclude the possibilityof infection because test results can be affected byimproper specimen collection, concurrent antibiotic therapy,or the number of organisms in the specimen which may bebelow the sensitivity of the test. As with many diagnostictests, results from the Xpert CT/NG assay should beinterpreted in conjunction with other laboratory andclinical data available to the clinician.Xpert CT/NG performance has not been evaluated in patientsless than 14 years of age. The assay should not be used forthe evaluationof suspected sexual abuse or for other medico-legalindications. Additional testing is recommended in anycircumstance when false positive or false negative resultscould lead to adverse medical, social or psychologicalconsequences. NG PCR NOT DETECTED Not Detect. [facility] Comment:A not detected test result does not exclude the possibilityof infection because test results can be affected byimproper specimen collection, concurrent antibiotic therapy,or the number of organisms in the specimen which may bebelow the sensitivity of the test. As with many diagnostictests, results from the Xpert CT/NG assay should beinterpreted in conjunction with other laboratory andclinical data available to the clinician.Xpert CT/NG performance has not been evaluated in patientsless than 14 years of age. The assay should not be used forthe evaluationof suspected sexual abuse or for other medico-legalindications. Additional testing is recommended in anycircumstance when false positive or false negative resultscould lead to adverse medical, social or psychologicalconsequences. Swab (Vaginal Swab) 07/02/2025 1:52 PM EST 07/02/2025 4:28 PM EST [facility] LAB MICROBIOLOGY - GENERAL ORD ERABLES Final Result Performing Organization Address [facility]/ZIP Co de Phone Number [facility] [address] [place] [address] [phone] * (ABNORMAL) Bacterial Vaginosis Panel (07/02/2025 1:52 PM EST) TRICHOMONAS VAGINALIS DETECTION BY PCR NOT DETECTED Not Detect [facility] BACTERIAL VAGINOSIS DETECTION BY PCR POSITIVE(A) Negative [facility] Comment:The BV organism targ ets of the Xpert Xpress MVP test can becommensal in women; Xpert Xpress MVP positive results forbacterial vaginosis should be considered in conjunction withother clinical and patient information to determine thedisease status. Organisms that are not detected by the XpertXpress MVP test have also been reported to be associatedwith BV and aerobic vaginitis.The Xpert Xpress MVP test performance has not been evaluatedin patients under the age of 14. MILAD GROUP DETECTION BY PCR DETECTED(A) Not Detect [facility] Milad glab krusei PCR NOT DETECTED Not Detect [facility] Swab Vaginal structure / Unknown 07/02/2025 1:52 PM EST 07/02/2025 4:28 PM EST [facility] LAB MICROBIOLOGY - GENERAL ORD ERABLES Final Result Performing Organization Address City/[facility]/ZIP Co de Phone Number [facility] [address] [place] [address] [phone] documented in this encounter Visit Diagnoses Diagnosis Vaginal discharge- Primary Leukorrhea, not specified as infective Acute cystitis with hematuria Bacterial vaginosis Unspecified vaginitis and vulvovaginitis Candidiasis Routine screening for STI (sexually transmitted infection) Screening examination for venereal disease documented in this encounter Additional Health Concerns Assessment Noted Time PHQ-9 Depression Total Score: 7 05/02/20 25 8:18 AM EDT documented as of this encounter Care Teams Ict Help Desk Technician Relationship Specialty Start Date End Date Trudi Pereira MD [address] [place] [phone] PCP - General Internal Medicine 06/01/23 documented as of this encounter
[2025-07-04 16:16] LABS: Hematocrit 36.0 % (37.0-47.0); Hemoglobin 12.1 g/dl (12.0-16.0); Mean Corpuscular HGB Conc 33.6 g/dl (31.0-35.0); Mean Corpuscular Hemoglobin 28.9 pg (27.0-33.0); Mean Corpuscular Volume 86.1 fL (80.0-98.0); NRBC Abs Auto 0.000 X10*3/uL (0.0-0.012); NRBC Pct Auto 0.0 /100WBC (0.0-0.2); Platelet Count 333 X10*3/uL (160-400); Red Blood Count 4.18 X10*6/uL (4.20-5.50); White Blood Count 8.0 X10*3/uL (4.8-10.8)
[2025-07-04 16:19] LABS: Appearance Urine Cloudy; Glucose Urine UA Negative (Negative); PH 6.0 (5.0-9.0); Specific Gravity - Urine 1.025 (1.005-1.025)
[2025-07-04 16:23] LABS: Hemoglobin A1C 60.6416 umol/L
[2025-07-04 16:43] LABS: Alanine Aminotransferase 13 U/L (0-31); Albumin Level 4.8 g/dL (3.5-5.0); Alkaline Phosphatase 65 U/L (39-117); Anion Gap 10 (12-20); Aspartate Amino Transferase 33 U/L (5-31); Blood Urea Nitrogen 14 mg/dL (9-16); Calcium 9.4 mg/dL (8.4-10.2); Carbon Dioxide 27 mmol/L (22-29); Chloride 108 mmol/L (96-108); Cholesterol 130 mg/dL (<200); Estimated Glomerular Filt Rate > 60; HDL Cholesterol 56 mg/dL (>40); Iron 67 mcg/dL (30-160); Percent Iron Saturation 24 % (15-50); Potassium 3.8 mmol/L (3.3-5.1); Sodium 141 mmol/L (135-145); Total Iron Binding Capacity 284 mcg/dL (228-428); Total Protein 7.7 g/dL (6.5-8.0); Triglycerides 71 mg/dL (<150); Unsaturated Iron Binding 217 ug/dL
[2025-07-04 17:01] LABS: Ferritin 60 ng/mL (10-122)
--- OUTSIDE RECORDS SUMMARY | 2025-07-04 17:33 | XMS_ITS | Encounter Summary ---
Author Organization [employer] Address [address] [place] [address] 7 [place] [address] Care Team Providers Care Rehabilitation Therapy Aide Name Role Phone Maryann Vásquez Primary Care Provider Trudi Will MD Primary Care Pro vider Encounter Details Date Type Department Care Team (Late st Contact Info) Description 09/11/2022 Orders Only [facility] [address] [place] [address] Venessa Dunaway LPN Social History Tobacco Use [...] on filedocumented in this encounter Care Teams Rehabilitation Therapy Aide Relationship Specialty Start Date End Date Maryann Vásquez FNP PCP - General Family Medicine 06/30/21 05/31/23 Trudi Pereira MD [address] [place] [address] PCP - General Internal Medicine 06/01/23 documented as of this encounter
--- OUTSIDE RECORDS SUMMARY | 2025-07-04 17:33 | XMS_ITS | Encounter Summary ---
Author Organization [employer] Address [address] [place] [address] Care Team Providers Care Overlock Sleeve Setter Name Role Phone Trudi Pereira MD Primary [...] documented as of this encounter Care Teams Overlock Sleeve Setter Relationship Specialty Start Date End Date Trudi Pereria MD [address] [place] [address] PCP - General Internal Medicine 06/01/23 documented as of this encounter
--- OUTSIDE RECORDS SUMMARY | 2025-07-04 17:33 | XMS_ITS | Clinical Summary ---
Author Organization [employer] Address [address] [place] [address] 7t [place] [address] Care Team Providers Care Triple Drum Operator Name Role Phone Trudi Pereira MD Primary [...] 24hrs as needed for pain 0 Active medroxyPROGEST ERone (Depo-Provera) 150 MG/ML injection Inject 1 mL (150 mg) into the muscle every 3 (three) months. 1 mL 3 5 Active nitrofurantoin , macrocrystal-m onohydrate, (Macrobid) 100 MG capsule Take 1 capsule (100 mg) by mouth 2 times daily for 5 days. 10 capsule 5 025 Active metroNIDAZOLE (Flagyl) 500 MG tabletIndicati ons:Bacterial vaginosis Take 1 tablet (500 mg) by mouth 2 times daily for 7 days. 14 tablet 07/04/2025 2:37 PM EST 5 025 Active terconazole (Terazol 3) 80 MG vaginal suppositoryInd ications:Devika diasis Insert 1 suppository (80 mg) into the vagina at bedtime for 7 days. 7 suppository 07/04/2025 2:37 PM EST 5 025 Active Hospital, Clinic, or Other Facility Administered Medication Ordered Dose Route Frequency Start Date End Date Status medroxyPROGESTERone (Depo-Provera) injection 150 mgIndications:Encoun ter for initial prescription of injectable contraceptive 150 mg IM See admin instructions 05/10/2025 Active Active Problems Problem Noted Date Diagnosed Date Bacterial vaginosis 07/04/2025 Acute cystitis with hematuria 07/04/2025 Candidiasis 07/04/2025 Moderate depressive disorder 04/26/2025 Underweight (BMI < [...] organization. Date Type Department Care Team Description 07/04/2025 Telephone [facility] [address] [place] [phone] Trudy Enciso FNP Lab Results 07/03/[address] [address] Trudi Pereira MD 07/02/2025 2:20 PM EST Office Visit [facility] [address] [address] Trudy Enciso FNP Vaginal discharge (Primary Dx); Acute cystitis with hematuria; Bacterial vaginosis; Candidiasis; Routine screening for STI (sexually transmitted infection) 07/02/2025 Travel 05/10/2025 Orders Only [address] [address] Henrique Bonilla CNM Encounter for initial prescription of injectable contraceptive (Primary Dx) 04/24/[address] [address] Trudi Pereira MD CHART PREP 04/04/[address] [address] Trudi Pereira MD Appointment Confirmation 04/04/2025 Telephone [facility] [address] [place] [address] Trudi Pereiar MD chart prep from Last 3 Months [...] Health Maintenance Due Date Last Done Comments HIB Vaccines (1 of 1 - Risk 1-dose series) 06/11/2003 Meningococcal B Vaccine (1 of 4 - Increased Risk) 2012 Alcohol/Substance Use Screening 2014 Hepatitis C Screening 2020 SDOH Screening 02/14/2025 02/15/2024 COVID-19 Vaccine (3 - season) 2025 05/05/2021, 01/28/2021 Influenza Vaccine (#1) 2025 , 06/16/2022, 06/27/2014, Additional history exists Meningococcal Vaccine (3 - Risk 2-dose series) 12/24/2025 12/24/2020, 04/18/2013 Disability Screening 01/31/2026 01/31/2025 Family Planning (PISQ) 02/22/2026 02/22/2025 Pap Smear 02/22/2026 02/22/2025 Tobacco Screening 02/22/2026 02/22/2025 Depression Screening 05/02/2026 05/02/2025, 05/02/20 25 Chlamydia and Gonorrhea Screening 07/02/2026 07/02/2025, 02/22/2025, 02/22/2025, Additional history exists DTaP/Tdap/Td Vaccines (8 - Td or Tdap) [...] Hepatitis A Vaccines Completed 12/24/2020, 02/03/20 17 Pneumococcal Vaccine: Pediatrics (0 to 5 Years) [...] Procedure Name Priority Date/Time Associated Diagnosis Comments FERRITIN Routine 07/04/2025 2:25 PM EST Annual physical exam IRON AND TOTAL IRON BINDING CAPACITY Routine 07/04/2025 2:25 PM EST Annual physical exam VITAMIN D,25-OH,TOTAL,IA Routine 07/04/2025 2:25 PM EST Annual physical exam TSH W/REFLEX TO FT4 Routine 07/04/2025 2 :25 PM EST Annual physical exam LIPID PANEL, STANDARD Routine 07/04/2025 2:25 PM EST Annual physical exam HEMOGLOBIN A1C Routine 07/04/2025 2:25 PM EST Annual physical exam COMPREHENSIVE METABOLIC PANEL Routine 07/04/2025 2:25 PM EST Annual physical exam CBC Routine 07/04/2025 2:25 PM EST Annual physical exam URINALYSIS, COMPLETE Routine 07/04/2025 2:23 PM EST Acute cystitis with hematuria POCT , URINE Routine 07/02/2025 2:21 PM EST Vaginal discharge POCT URINALYSIS DIPSTICK Routine 07/02/2025 2:15 PM EST Vaginal discharge CULTURE, URINE, ROUTINE Routine 07/02/2025 1:52 PM EST Acute cystitis with hematuria CHLAMYDIA/N. GONORRHOEAE RNA, TMA, UROGENITAL Routine 07/02/2025 1:52 PM EST Vaginal discharge BACTERIAL VAGINOSIS PANEL Routine 07/02/2025 1:52 PM EST Vaginal discharge PAP SMEAR Routine 02/22/2025 11:27 AM EDT Routine cervical smear HIV 1/2 ANTIGEN/ANTIBODY, FOURTH GENERATION W/RFL Routine 08/01/2020 11:33 AM EST from Last 3 Months or Most Recently Relevant to Health Maintenance Results * (ABNORMAL) Vitamin D, 25-Hydroxy, Total, Immunoassay (07/04/2025 2:25 PM EST) Vitamin D 25-OH Total 19.3(L) >30 ng/mL [facility] Comment: Health Based Reference Values*< 20 ng/mL [id number] ng/mL Insufficient> 30 ng/mL Sufficient*Erin CARTAGENA. N Engl J Med. 2007;357:266-280There is no well-established upper level of normal vitamin Dlevels. Some laboratories use 50 ng/mL as an upper limit ofnormal. However, toxicity is patient-dependent and may occurat any level. Careful correlation with the patient'spresentation is necessary and, if there is concern forvitamin D toxicity, treatment should be consideredirrespective of the serum level.Care must be taken in interpreting Vitamin D results fromdifferent laboratories and methodologies. Published datademonstrated that results from patients undergoinghemodialysis may show a negative bias when tested withvarious automated 25-OH vitamin D assays when compared toLC-MS/MS.When testing samples from patients whose predominant form ofVitamin D is Vitamin D2, such as patients receiving VitaminD2 supplementation, results that are subtherapeutic shouldbe confirmed with another method such as LC-MS/MS. Blood Venous blood specimen / Unknown 07/04/2025 2:25 PM EST 07/04/2025 3:59 PM EST us Trudi Chaves MD LAB BLOOD ORDERAB LES Final Result [facility] [address] [place] [phone] * TSH with Reflex to Free T4 (07/04/2025 2:25 PM EST) TSH reflex Free T4 0.68 0.32 - 4.0 uIU/mL [facility] Blood 07/04/2025 2:25 PM EST 07/04/2025 3:59 PM EST us Trudi Chaves MD LAB BLOOD ORDERAB LES Final Result Performing Organization Address [facility] [address] [facility]/ZIP Co de Phone Number [facility] [address] [place] [phone] * Iron And Total Iron Binding Capacity (07/04/2025 2:25 PM EST) [facility] Iron 67 30 - 160 mcg/dL [facility] Total Iron Binding Capacity 284 228 - 428 mcg/dL [facility] Percent Iron Saturation 24 15 - 50 % [facility] Unsaturated Iron Binding 217 ug/dL [facility] Blood Venous blood specimen / Unknown 07/04/2025 2:25 PM EST 07/04/2025 3:59 PM EST us Trudi Chaves MD LAB BLOOD ORDERAB LES Final Result Performing Organization Address [facility] [address] [facility] Co de Phone Number [facility] [address] [place] [phone] * (ABNORMAL) CBC (07/04/2025 2:25 PM EST) [facility] White Blood Count 8.0 4.8 - 10.8 X10*3/uL [facility] Red Blood Count 4.18(L) 4.20 - 5.50 X10*6/uL [facility] Hemoglobin 12.1 12.0 - 16.0 g/dl [facility] Hematocrit 36.0(L) 37.0 - 47.0 % [facility] Mean Corpuscular Volume 86.1 80.0 - 98.0 fL [facility] Mean Corpuscular Hemoglobin 28.9 27.0 - 33.0 pg [facility] Mean Corpuscular HGB Conc 33.6 31.0 - 35.0 g/dl [facility] Red Cell Distribution Width 13.2 11.0 - 16.0 % [facility] Platelet Count 333 160 - 400 X10*3/uL [facility] Mean Platelet Volume 10.1 9.4 - 12.3 fL [facility] NRBC Pct Auto 0.0 0.0 - 0.2 /100WBC [facility] NRBC Abs Auto 0.000 0.0 - 0.012 X10*3/uL [facility] Blood Venous blood specimen / Unknown 07/04/2025 2:25 PM EST 07/04/2025 3:59 PM EST us Trudi Chaves MD LAB BLOOD ORDERAB LES Final Result Performing Organization Address City/[facility] [address]/ZIP Co de Phone Number [facility] [address] [place] [phone] * Hemoglobin A1c (07/04/2025 2:25 PM EST) Hemoglobin A1c 4.8 <6.0 % [facility] Comment:Hemoglobin A1C Refer ence Range Adults: 4.8 - 6.0 % Non diabetic: < 6.0 % Goal: < 7.0 %Additional Action Suggested: > 8.0 %Note: Hemoglobin A1c results are invalid for patients with abnormal amounts of HbF. Blood transfusions may impact the HbA1c concentration in the patient sample. Estimated Average Glucose 91 mg/dL [facility] Comment:eAG = Estimated ave rage glucose which is %A1C expressed asaverage glucose, using the formula of the Y0R-GoofrycTnvwale Glucose study (ADAG), Diabetes Care, Vol.31,#8,2007 Blood Venous blood specimen / Unknown 07/04/2025 2:25 PM EST 07/04/2025 3:59 PM EST us Trudi Chaves MD LAB BLOOD ORDERAB LES Final Result Performing Organization Address [facility] [address] [facility]/ZIP Co de Phone Number [facility] [address] [place] [phone] * Ferritin (07/04/2025 2:25 PM EST) Ferritin 60 10 - 122 ng/mL [facility] Blood Venous blood specimen / Unknown 07/04/2025 2:25 PM EST 07/04/2025 3:59 PM EST us Trudi Chaves MD LAB BLOOD ORDERAB LES Final Result Performing Organization Address [facility] [address] [facility]/ZIP Co de Phone Number [facility] [address] [place] [phone] * Lipid Panel, Standard (07/04/2025 2:25 PM EST) Triglycerides 71 <150 mg/dL [facility] Comment:Desirable Triglyceri de: less than 150 mg/dLBorderline High Triglyceride 150-199 mg/dLHigh Triglyceride: 200-499 mg/dLVery High Triglyceride: greater than or equal to 5OO mg/dL Cholesterol 130 <200 mg/dL [facility] Comment:Desirable Cholestero l: less than 200 mg/dLBorderline High Cholesterol: 200-239 mg/dLHigh Cholesterol: greater than 239 mg/dL LDL Cholesterol Calculated 60 <100 mg/dL [facility] Comment:Desirable LDL: less than 100 mg/dLNear Optimal/Above Optimal LDL: 110- 129 mg/dLBorderline High LDL: 130-159 mg/dLHigh LDL: 160-189 mg/dLVery High LDL: greater than or equal to 190 mg/dL HDL Cholesterol 56 >40 mg/dL [facility] Comment:Desirable HDL: great er than 40 mg/dL Note: This HDL assay may give artificially low results in patients with liver disease. Blood Venous blood specimen / Unknown 07/04/2025 2:25 PM EST 07/04/2025 3:59 PM EST us Trudi Chaves MD LAB BLOOD ORDERAB LES Final Result Performing Organization Address [facility]/ZIP Co de Phone Number [facility] [address] [place] [phone] * (ABNORMAL) Comprehensive Metabolic Panel (07/04/2025 2:25 PM EST) Sodium 141 135 - 145 mmol/L [facility] Potassium 3.8 3.3 - 5.1 mmol/L [facility] Chloride 108 96 - 108 mmol/L [facility] Carbon Dioxide 27 22 - 29 mmol/L [facility] Anion Gap 10(L) 12 - 20 [facility] Urea Nitrogen (BUN) 14 9 - 16 mg/dL [facility] Creatinine, Serum 0.78 0.5 - 1.4 mg/dL [facility] Estimated Glomerular Filt Rate >60 [facility] Comment:Chronic Kidney Disea se: Estimated GFR < 60 mL/min/1.29b4Qiocgk Kidney Disease: Estimated GFR < 15 mL/min/1.73m2 Glucose 92 60 - 115 mg/dL [facility] Calcium 9.4 8.4 - 10.2 mg/dL [facility] Bilirubin, Total 0.4 0.0 - 1.0 mg/dL [facility] Aspartate Amino Transferase 33(H) 5 - 31 U/L [facility] Alanine Aminotransferase 13 0 - 31 U/L [facility] Total Protein 7.7 6.5 - 8.0 g/dL [facility] Albumin Level 4.8 3.5 - 5.0 g/dL [facility] Alkaline Phosphatase 65 39 - 117 U/L [facility] Blood Venous blood specimen / Unknown 07/04/2025 2:25 PM EST 07/04/2025 3:59 PM EST us Trudi Chaves MD LAB BLOOD ORDERAB LES Final Result [facility] [address], [place] [phone] * (ABNORMAL) Urinalysis Complete (07/04/2025 2:23 PM EST) Color Urine Dark Yellow [facility] Appearance Urine Cloudy [facility] PH 6.0 5.0 - 9.0 [facility] Glucose Urine UA Negative Negative mg/dL [facility] Urine Blood Negative Negative [facility] Specific [place] - Urine 1.025 1.005 - 1.025 [facility] Urine Protein Trace Neg-Trace mg/dL [facility] Urine Ketones Trace Negative mg/dL [facility] Nitrite Urine Negative Negative [facility] Leukocyte Esterase Urine Negative Negative [facility] RBC Urine 0-2 0 - 2 /HPF [facility] Urine WBC 6-10(A) 0 - 5 /HPF [facility] Urine Squamous Epithelial Cell 11-20 0 - 2 /HPF [facility] Urine Bacteria 2+ None Seen [facility] Hyaline Casts, Urine 0-2 0 - 2 /LPF [facility] Urine (Urine, Random) 07/04/2025 2:23 PM EST 07/04/2025 4:00 PM EST [employer] LAB URINE ORDERABLES Final Res ult Performing Organization Address City/State/[facility] Co de Phone Number [facility] [address] [place] [phone] * POCT Urine (07/02/2025 2:21 PM EST) Preg Test, Ur Negative Negative, Indeterminate, None Detected, Invalid, Specimen unsatisfactory for evaluation, Weakly Positive, 2+ QC Media Lot # [id number] Lot# Expiration Date Urine 07/02/2025 2:21 PM EST [employer] POINT OF CARE TEST ENTER/EDIT ORDERABLES Final [...] Media Lot # [id number] Lot# Expiration Date ,026 Urine (Urine, Random) 07/02/2025 2:15 PM EST [employer] POINT OF CARE TEST ENTER/EDIT ORDERABLES Final Result * (ABNORMAL) Bacterial Vaginosis Panel (07/02/2025 1:52 PM EST) Pathologist [facility] [place] TRICHOMONAS VAGINALIS DETECTION BY PCR NOT DETECTED Not Detect [facility] BACTERIAL VAGINOSIS DETECTION BY PCR POSITIVE(A) Negative [facility] Comment:The BV organism targ ets of [...] evaluatedin patients under the age of 14. KARIE GROUP DETECTION BY PCR DETECTED(A) Not Detect [facility] Karie glab krusei PCR NOT DETECTED Not Detect [facility] Swab Vaginal structure / Unknown 07/02/2025 1:52 PM EST 07/02/2025 4:28 PM EST [employer] LAB MICROBIOLOGY - GENERAL ORD ERABLES Final Result [facility] [address] [place] [phone] * Chlamydia/N. Gonorrhoeae RNA, TMA, Vaginal (07/02/2025 1:52 PM EST) Pathologist [facility] [place] CT PCR NOT DETECTED Not Detect. [facility] Comment:A not detected test result does [...] psychologicalconsequences. NG PCR NOT DETECTED Not Detect. [facility] Comment:A not detected test result does [...] 1:52 PM EST 07/02/2025 4:28 PM EST Trudy Enciso [facility] MICROBIOLOGY - GENERAL ORD ERABLES Final Result [facility] [address] [place] [phone] * Urine Culture Routine (07/02/2025 1:52 PM EST) Urine Urine specimen obtained by clean catch procedure / Unknown 07/02/2025 1:52 PM EST 07/02/2025 4:28 PM EST Comment:[facility] Narrative [facility] - 07/04/2025 7:45 AM EST Escherichia coli Quant > 100,000 cfu/mL Escherichia coli: Ampicillin >=32(R) Escherichia coli: Cefazolin (Urine) 2(S) Escherichia coli: Cefepime <=0.12(S) Escherichia coli: Ceftriaxone <=0.25(S) Escherichia coli: Ciprofloxacin >=4(R) Escherichia coli: Gentamicin <=1(S) Escherichia coli: Nitrofurantoin <=16(S) Escherichia coli: Trimethoprim/Sulfamethoxazole <=20(S) Specimen Source: Urine clean catch Trudy Enciso [facility] MICROBIOLOGY - GENERAL ORD ERABLES Final Result [facility] [address] [place] [phone] * Pap Smear (02/22/2025 11:27 AM EDT) Swab Cervix uteri structure / Unknown 02/22/2025 11:27 AM EDT 02/26/2025 7:55 AM EDT Simone [facility] - 03/02/2025 9:49 AM EDT ----- ------- Name: Altagracia Shane Age/Sex: 24/F : 2000 Unit#: [id number] Attend Dr: Trudi Perkins MD Re02/22/25 Status: DEP REF Location: [id number].HHCLNP Disch: ----- ------- SPEC : [id number] RECD: 02/26/25 STATUS: RADHA PACHECO NUM: [id number] [place]: 02/22/25 [facility] DR: HENRIQUE BONILLA CNM ENTERED: 02/26/25 SP TYPE: Pap Smr [facility] DR: ORDERED: Pap Smear, PAP path review [...] and HPV testing will be performed at [facility] (CLIA #[id number]), [address] [place] [address]. Testing for HPV was performed using the [employer] system. The presence of HPV in the [...] detected. All professional services are performed by [facility] ([address] [place], [place] [id number]; ; CLIA #[id number]). The PAP Test is a screening procedure [...] 03/02/25 0949 ----- ------- END OF REPORT us Henrique Bonilla [facility] CYTOLOGY ORDERABLES F inal Result [facility] [address] [place] [phone] * HIV 1/2 ANTIGEN/ANTIBODY,FOURTH GENERATION W/RFL (08/01/2020 11:33 AM EST) [facility] HIV-1/2 ANTIGEN AND ANTIBODIES, 4TH GENERATION W/ REFLEX [facility] Comment: TEST NOT PERFORMED No suitable specimen received. 08/01/2020 11:3 3 AM EST us Jerome Dimas ACCOUNT SUPERVISOR LAB BLOOD ORDERABLES Final Result Performing Organization Address City/[facility] [address]/ZIP Co de Phone Number [facility] [address] from Last 3 Months or Most Recently Relevant to Health Maintenance Insurance [facility] C3 Care Teams Triple Drum Operator Relationship Specialty Start Date End Date Trudi Pereira MD [address] [place] [phone] PCP - General Internal Medicine 06/01/23
--- OUTSIDE RECORDS SUMMARY | 2025-07-04 17:33 | XMS_ITS | Clinical Summary ---
Author Organization [facility] Address [address] [place] [address] Care Team Providers Care Swatcher Name Role Phone Unknown Primary Care Provider [phone] Allergies No known active allergies Medications cephalexin [...] patient's age to complete this topic Insurance [facility] Care Teams Swatcher Relationship Specialty Start Date End Date Unknown Unknow Provider Address PCP - General 07/23/20
--- OUTSIDE RECORDS SUMMARY | 2025-07-04 17:33 | XMS_ITS | Encounter Summary ---
Author Organization [employer] Address [address] [facility] [address] [place] [address] Care Team Providers Care Lobby Porter Name Role Phone Trudi Pereira MD Primary Care Pro vider Reason for Visit * Reason Onset Date Comments Lab Results 07/04/2025 Encounter Details Date Type Department Care Team ([facility] st Contact Info) Description 07/04/2025 Telephone [facility] [address] [place] [address] Trudy Enciso FNP [address] [place] [phone] Lab Results Social History Tobacco Use Types Packs/Day Years [...] AM EDT documented as of this encounter Miscellaneous Notes * Telephone Encounter - Lizbeth Noland RN - 07/04/2025 11:43 AM EST Telephone call to the pt regarding the following message from Trudy Okkonstantin : Please inform Altagracia her vaginal swab test came back positive for Karie and BV. I have sent meds to her pharmacy. She should continue with her medication for UTI. Her other lab work for HIV, chlamydia and Gonorrhea are negative at this visit. Pt was advised of this message . Pt verbalized understanding ,and agrees with the plan. documented in this encounter Plan of Treatment Not on file documented as of this encounter Visit Diagnoses Not on filedocumented in this encounter Additional Health Concerns Assessment Noted Time PHQ-9 Depression Total Score: 7 05/02/20 25 8:18 AM EDT documented as of this encounter Care Teams Lobby Porter Relationship Specialty Start Date End Date Trudi Pereira MD [address] [place] [address] PCP - General Internal Medicine 06/01/23 documented as of this encounter
--- OUTSIDE RECORDS SUMMARY | 2025-07-04 17:33 | XMS_ITS | Encounter Summary ---
Author Organization [employer] Address [address] [place] [address] [address] [place] [address] Care Team Providers Care Practice Support Specialist Name Role Phone Trudi Pereira MD Primary Care Pro vider Encounter Details Date Type Department Care Team ([facility] st Contact Info) Description 07/03/2025 Telephone [facility] [address] [place] [id number] Trudi Pereira MD [address] [place] [address] Social History Tobacco Use Types Packs/Day Years [...] encounter Miscellaneous Notes * Telephone Encounter - Emmanuel Khan - 07/03/2025 9:43 AM EST TC from pt requesting call back regarding Results. Type of results: urine Date when done: 07/02 Facility: walk in documented in this encounter Plan of Treatment Not on file documented as of this encounter Visit Diagnoses Not on filedocumented in this encounter Additional Health Concerns Assessment Noted Time PHQ-9 Depression Total Score: 7 05/02/20 25 8:18 AM EDT documented as of this encounter Care Teams Practice Support Specialist Relationship Specialty Start Date End Date Trudi Pereira MD [address] [place] [id number] PCP - General Internal Medicine 06/01/23 documented as of this encounter
[2025-07-05 03:36] LABS: Syphilis Screen Nonreactive (Nonreactive)
[2025-07-05 04:24] LABS: HBS Num1 1.65 mIU/mL (0-7.99); HBc Num1 0.05 S/CO (0.00-0.79); HBsAGNum1 0.34 S/CO (0.00-0.99); HIV Num 1 0.08 S/CO (0.00-0.99); Hepatitis B Surface Antigen Negative (Negative); ~HepC Num1 0.09 S/CO (0.00-0.79); ~Hepatitis B Surface Antibody NONREACTIVE (Nonreactive); ~Hepatitis C Antibody Nonreactive (Nonreactive)
[2025-07-07 18:02] LABS: TS Negative Control Passed; TS Panel A 0; TS Panel B 0; TS Positive Control Passed; TSpotTB Negative (Negative)
== END 2025-07-04 14:14 | disposition home or self-care (01) ==
LOC: HO.HHCL 14:13
PROVIDERS: PCP Student in an Organized Health Care Education/Training Program; Referring Provider Nurse Practitioner Family; Visit Provider Student in an Organized Health Care Education/Training Program
DX: Z00.00 Encounter for general adult medical examination without abnormal findings (principal); Z11.1 Encounter for screening for respiratory tuberculosis; Z11.59 Encounter for screening for other viral diseases; Z11.4 Encounter for screening for human immunodeficiency virus [HIV]; N30.00 Acute cystitis without hematuria; Z20.6 Contact with and (suspected) exposure to human immunodeficiency virus [HIV]
CPT/HCPCS: 36415; 80053; 80061; 81001; 82306; 82728; 83036; 83540; 84443; 85027; 86481; 86704; 86706; 86780; 86803; 87340; 87389